=== PATIENT | male | born 1970 | race Caucasian/White ===

== ENCOUNTER 2018-06-12 11:01 | Emergency (ER) | payer MEDICAID, SELFPAY ==
[2018-06-12 11:02] VITALS: BP 136/101; PULSE 86; RESP 18; TEMP 36.6; O2SAT 98; BMI 41.3
[2018-06-12] MEDS: Acetaminophen 500 MG Tablet 1000 MG PO (12:16)
[2018-06-12 12:47] VITALS: BP 134/86; PULSE 70; RESP 28; O2SAT 100
--- NOTE | 2018-06-12 12:48 | ED.DCSUM_ITS ---
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 He states there was not a significant amount of bleeding. He drove to the fire department where it was dressed and he continued here to the emergency department. He states his last tetanus was less than 5 years ago. Physical Examination: Afebrile vital signs are stable There is a 7 cm linear laceration to the medial mid aspect of the eft upper arm into the fatty tissue. There is no muscular involvement. There is no obvious brachial artery or vein laceration. Distally he has a negative Davidson's test and brisk capillary refill of all of his digits. Neurologically is intact with no deficits. Emergency Department Course and Treatment: Wound was looking ascites 1% lidocaine washed with Shur-Clens and explored. It was closed using a total of 8 simple interrupted 3-0 Ethilon sutures. Wound was dressed and wound care discussed with patient. Stitches will need to be removed in 10-14 days. Impression: 1. 7 cm left arm laceration with Repair This note was generated with [employer] dictation software. It may contain incorrect words, spelling, and punctuation that were not noted in review of the chart prior to signing ED Disposition - Plan for ED Patient: Disposition: Home or Assisted Living Chief Complaint: Laceration Instructions: ED Laceration Ext Sutr Stap Tape Referrals: Taniya Narayan MD [Primary Care Provider] - 10-14 Days suture removal
== END 2018-06-12 12:57 | disposition home or self-care (01) ==
PROVIDERS: Emergency Provider Emergency Medicine; Family Provider Internal Medicine; PCP Internal Medicine
DX: S41.112A Laceration without foreign body of left upper arm, initial encounter (principal); W26.8XXA Contact with other sharp object(s), not elsewhere classified, initial encounter; Y93.9 Activity, unspecified; Y92.9 Unspecified place or not applicable; Y99.9 Unspecified external cause status; K21.9 Gastro-esophageal reflux disease without esophagitis; Z79.899 Other long term (current) drug therapy
CPT/HCPCS: 12002; 99285

== ENCOUNTER 2018-11-25 09:46 | Emergency (ER) | payer MEDICAID, SELFPAY ==
[2018-11-25 09:47] VITALS: BP 156/93; PULSE 89; RESP 19; TEMP 36.4; O2SAT 99; BMI 46.8
--- NOTE | 2018-11-25 10:00 | ED.VISSUMM ---
- ER Visit Summary Date of Service: 11/25/18 Chief Complaint: Right shoulder and chest pain History of Present Illness: The patient is a 48 M presents with pain in his right shoulder, chest, and neck. Patient states this began approximately 4 days ago. Patient states the pain started in his right scapula and is now in his right chest and shoulder. Patient states the pain is worse with certain movements of his shoulder. Patient describes the pain as aching and burning. Patient denies any trauma or injury. Patient denies any cough. Patient does admit to some tightness in his chest and shortness of breath. Patient denies any nausea or vomiting. Patient denies any diaphoresis. Patient denies any fevers or chills. Physical Examination: Vital signs are stable. Patient is afebrile. Patient is in no acute distress. Oral mucosa is pink and moist. Neck is supple. Trachea is midline. There is no JVD noted. Heart was regular rate and rhythm. Lungs are diminished bilaterally. Abdomen is soft. Bowel sounds are normal. There is no tenderness. There is no guarding noted. Skin is warm dry. Cranial nerves II through XII are intact. There are no focal motor or sensory deficits noted. The remaining physical exam is within normal limits. Test Results: EKG showed a normal sinus rhythm with a rate of 88. There are no acute ST or T wave changes. CBC and basic metabolic profile were normal. Troponin was normal. PA and lateral chest x-ray was obtained. There is borderline cardiomegaly but no acute infiltrate. Emergency Department Course and Treatment: Patient was advised of his test results. Patient was advised that this may be more musculoskeletal. Patient understands and is agreeable with this. Patient was given a prescription for meloxicam. Patient was instructed to continue using ice and heat as needed. Patient was instructed to follow-up with his primary care physician in 5-7 days. Patient understood and was agreeable with the plan. All questions were answered. Disposition: Discharge home Impression: Right shoulder pain Right chest pain This note was generated with [employer] dictation software. It may contain incorrect words, spelling, and punctuation that were not noted in review of the chart prior to signing ED Disposition - Plan for ED Patient: Disposition: Home or Assisted Living Diagnosis: Right shoulder pain, Right-sided chest pain Instructions: ED Shoulder Pain [facility] Prescriptions: Meloxicam 15 mg PO DAILY #20 tab Referrals: Taniya Narayan MD [Primary Care Provider] - 1-2 Weeks
--- NOTE | 2018-11-25 10:03 | EKG12_ITS ---
Test Reason : RIGHT CP Blood Pressure : / mmHG Vent. Rate : 088 BPM Atrial Rate : 088 BPM P-R Int : 138 ms QRS Dur : 084 ms QT Int : 364 ms P-R-T Axes : 043 058 020 degrees QTc Int : 440 ms Normal sinus rhythm Normal ECG Confirmed by RODDY CASANOVA, STEF ([id number]), video news editor BRADLY PAIGE ([id number]) on 11/27/2018 1:34:58 PM Referred By: LISSY/DANIEL Confirmed By:STEF PEREYRA MD
--- NOTE | 2018-11-25 10:03 | RAD_ITS ---
STUDY: X-RAY CHEST REASON FOR EXAM: Male, 48 years old. Chest pain and neck pain. TECHNIQUE: PA and lateral views of the chest. COMPARISON: Comparison is made with prior study dated July 05, 2016. FINDINGS: EKG electrodes are seen. Elevation of the right hemidiaphragm. Scattered calcified granulomas. No acute infiltrate is seen. There is no demonstrated pleural abnormality. There is borderline cardiomegaly. Normal mediastinum and sidra. Normal visualized pulmonary arteries. Normal visualized aortic arch and descending thoracic aorta. Normal visualized thoracic spine. Normal visualized ribs, clavicles, and shoulders. There is no demonstrated abnormality of the visualized soft tissue structures of the upper abdomen. RAD/Chest PA and Lateral IMPRESSION: Borderline cardiomegaly. Electronically Signed: Ari Carrillo, at 11:24 EDT , Service support ,
[2018-11-25 10:20] VITALS: PULSE 82; RESP 17; O2SAT 96
[2018-11-25] MEDS: Ipratropium/Albuterol Sulfate 3 ML AMPUL.NEB INHALATION (10:20)
[2018-11-25 10:28] LABS: Absolute Lymphocyte Count 1.81 X10^3/ul (0.83-4.51); Absolute Neutrophil Count 4.6 X10^3/uL (2.0-7.7); Basophil# 0.04 X10^3/uL; Basophil% 0.6 % (0-1); Eosinophil# 0.13 X10^3/uL; Eosinophils% 1.8 % (0-5); Hematocrit 44.4 % (40-54); Hemoglobin 14.9 g/dl (13.0-16.5); Lymphocyte # 1.81 X10^3/ul (4.0); Lymphocyte % 25.7 % (19-41); Mean Corp Hgb Conc 33.6 g/gl (32-36); Mean Corpuscular Hgb 28.2 pg (27.0-32.0); Mean Corpuscular Volume 84.1 fL (80-94); Mean Platelet Vol. 10.9 fl (6.2-12.0); Monocyte# 0.42 X10^3/uL; Neutrophil # 4.63 X10^3/uL (2.7-7.7); Neutrophil % 65.6 % (47-70); Platelet Count 261 K/mm3 (150-450); RBC Distribution Width SD 39.8 fl (35.1-43.9); Red Blood Count 5.28 M/mm3 (4.6-6.2); White Blood Count 7.1 K/mm3 (4.4-11.0)
[2018-11-25 10:29] LABS: POSITIVE COUNT NO; POSITIVE DIFFERENTIAL NO; POSITIVE MORPHOLOGY NO
[2018-11-25 10:43] LABS: Anion Gap 7 (5-15); BUN 14 mg/dL (7-18); BUN/Creat Ratio 14.2 RATIO (10-20); Calcium,Total 8.7 mg/dL (8.5-10.1); Chloride 104 mmol/L (98-107); Creatinine, Serum 0.99 mg/dL (0.70-1.30); EST Glomerular Filtration Rate 86 mL/min (>60); Est Glom Filt Rate - Afr Amer 105 mL/min (>60); Estimated Creatinine Clearance 77.24 ml/min; Glucose 142 mg/dL (74-106); Potassium 3.5 mmol/L (3.5-5.1); Sodium Level 137 mmol/L (136-145)
[2018-11-25 12:05] VITALS: BP 130/90; PULSE 79; RESP 18; O2SAT 94
== END 2018-11-25 12:15 | disposition home or self-care (01) ==
PROVIDERS: Emergency Provider Emergency Medicine; Family Provider Internal Medicine; PCP Internal Medicine
DX: M25.511 Pain in right shoulder (principal); R07.9 Chest pain, unspecified; M54.2 Cervicalgia; R51 Headache; R06.02 Shortness of breath; K21.9 Gastro-esophageal reflux disease without esophagitis; E66.9 Obesity, unspecified; Z79.899 Other long term (current) drug therapy; Z87.891 Personal history of nicotine dependence
CPT/HCPCS: 71046; 80048; 84484; 85025; 93005; 94640; 99284

== ENCOUNTER 2019-06-04 08:39 | Emergency (ER) | payer MEDICAID, SELFPAY ==
[2019-06-04] VITALS (7 sets, daily range): BP systolic 120–156; BP diastolic 70–104; PULSE 63–87; RESP 14–17; TEMP 37.1; O2SAT 96–98; BMI 41.7
--- NOTE | 2019-06-04 08:56 | EKG12_ITS ---
Test Reason : CP Blood Pressure : / mmHG Vent. Rate : 077 BPM Atrial Rate : 077 BPM P-R Int : 138 ms QRS Dur : 082 ms QT Int : 372 ms P-R-T Axes : 041 049 032 degrees QTc Int : 420 ms Normal sinus rhythm Normal ECG Confirmed by HIRA CASANOVA, ROHAN ([id number]), video editor CEZAR RODRIGUEZ ([id number]) on 06/10/2019 10:30:53 AM Referred By: GE/LISSY Confirmed By:PUJA INIGUEZ MD
--- NOTE | 2019-06-04 08:57 | ED.DCSUM_ITS ---
- ER Visit Summary Date of Service: 06/04/19 Chief Complaint: Chest pain History of Present Illness: The patient is a 48 M who presents with chest pain that has been getting worse over the past 6 days. Patient states the pain is been constant for the past 3 days. Patient describes the pain as a heaviness and pressure. Patient states the pain is over the left chest area. Patient states the pain radiates into his left neck and left arm. Patient states nothing makes the pain better or worse. Patient states he did have an episode of nausea vomiting 3 days ago. Patient states he has had some intermittent diaphoresis. Patient also admits to some slight shortness of breath. Patient states that he did have an episode of feeling off balance and lightheaded. Patient is a former smoker. Patient has a family history of coronary artery disease at a young age. Patient also has a history of anxiety. Physical Examination: Vital signs are stable except for slightly elevated blood pressure of 156/104. Patient is afebrile. Patient is in no acute distress. Oral mucosa is pink and moist. Neck is supple. Trachea is midline. There is no JVD noted. Heart was regular rate and rhythm. Lungs are clear and equal bilaterally. Abdomen is soft. Bowel sounds are normal. There is no tenderness. There is no guarding noted. Skin is warm dry. Cranial nerves II through XII are intact. There are no focal motor or sensory deficits noted. Test Results: EKG showed a normal sinus rhythm with a rate of 77. There are no acute ST or T wave changes noted. Portable chest x-ray was obtained. There is borderline cardiomegaly. There is no acute cardiopulmonary process. CBC, basic metabolic profile, troponin were obtained and were normal. Emergency Department Course and Treatment: Patient was given aspirin and nitroglycerin here. Patient states his pain improved. Patient has a HEART score of 3. Patient was advised that this is low risk for acute cardiac event. Patient was instructed to follow-up with his primary care physician for further evaluation. Patient understood and was agreeable with the plan. All questions were answered. Disposition: Discharge home Impression: Chest pain This note was generated with [employer] dictation software. It may contain incorrect words, spelling, and punctuation that were not noted in review of the chart prior to signing ED Disposition - Plan for ED Patient: Disposition: Home or Assisted Living Diagnosis: Chest pain Instructions: CHEST PAIN, Uncertain Cause Referrals: Taniya Narayan MD [Primary Care Provider] - 5-7 Days
[2019-06-04 09:04] LABS: Absolute Lymphocyte Count 2.27 X10^3/uL (0.83-4.51); Basophil# 0.06 X10^3/uL; Basophil% 0.7 % (0-1); Eosinophil# 0.16 X10^3/uL; Hemoglobin 14.9 g/dL (13.0-16.5); Lymphocyte # 2.27 X10^3/ul (4.0); Lymphocyte % 28.3 % (19-41); Mean Corp Hgb Conc 32.4 g/dL (32-36); Mean Corpuscular Hgb 27.5 pg (27.0-32.0); Mean Corpuscular Volume 84.9 fL (80-94); Mean Platelet Vol. 10.9 fl (6.2-12.0); Monocyte# 0.49 X10^3/uL; Monocyte% 6.1 % (0-10); NRBC Flagged by Analyzer 0 % (0-5); Neutrophil # 4.99 X10^3/uL (2.7-7.7); Neutrophil % 62.4 % (47-70); Platelet Count 280 K/mm3 (150-450); RBC Distribution Width CV 12.9 % (11.6-14.6); RBC Distribution Width SD 39.7 fl (35.1-43.9); Red Blood Count 5.42 M/mm3 (4.6-6.2)
--- NOTE | 2019-06-04 09:08 | RAD_ITS ---
STUDY: X-RAY CHEST REASON FOR EXAM: Male, 48 years old. Chest pain. TECHNIQUE: Single AP portable view of the chest. COMPARISON: Comparison is made with prior study dated November 25, 2018. FINDINGS: EKG electrodes are seen. The lungs are clear and expanded. There is no demonstrated pleural abnormality. There is borderline cardiomegaly. Normal mediastinum and sidra. Normal visualized pulmonary arteries. Normal visualized aortic arch and descending thoracic aorta. Normal visualized thoracic spine. Normal visualized ribs, clavicles, and shoulders. There is no demonstrated abnormality of the visualized soft tissue structures of the upper abdomen. RAD/Chest 1 View (Portable) IMPRESSION: Borderline cardiomegaly. Electronically Signed: Ari Carrillo, at 9:39 EDT , Service support ,
[2019-06-04] MEDS: Aspirin 81 MG TAB.CHEW 324 MG PO (09:10)
[2019-06-04 09:14] LABS: Anion Gap 7 (5-15); BUN 20 mg/dL (7-18); BUN/Creat Ratio 20.7 RATIO (10-20); Calcium,Total 8.9 mg/dL (8.5-10.1); Chloride 107 mmol/L (98-107); Creatinine, Serum 0.97 mg/dL (0.70-1.30); EST Glomerular Filtration Rate 88 mL/min (>60); Est Glom Filt Rate - Afr Amer 107 mL/min (>60); Estimated Creatinine Clearance 84.96 ml/min; Glucose 102 mg/dL (74-106); Sodium Level 142 mmol/L (136-145)
[2019-06-04] MEDS: Nitroglycerin SL (ED/IMG/CATH) 0.4 MG TABLET SUBLINGUAL ×3 (09:14→09:38)
== END 2019-06-04 10:52 | disposition home or self-care (01) ==
PROVIDERS: Emergency Provider Emergency Medicine; Family Provider Internal Medicine; PCP Internal Medicine
DX: R07.9 Chest pain, unspecified (principal); K21.9 Gastro-esophageal reflux disease without esophagitis; F41.9 Anxiety disorder, unspecified; R03.0 Elevated blood-pressure reading, without diagnosis of hypertension; E66.9 Obesity, unspecified; Z79.899 Other long term (current) drug therapy; Z87.891 Personal history of nicotine dependence
CPT/HCPCS: 71045; 80048; 84484; 85025; 93005; 99285; A4216

== ENCOUNTER 2020-06-14 08:43 | Emergency (ER) | payer MEDICAID, SELFPAY ==
[2019-06-04 08:42] VITALS: BMI 41.7
[2020-06-14 08:43] VITALS: BP 164/97; PULSE 81; RESP 16; TEMP 38.5; O2SAT 98; BMI 43.2
[2020-06-14 09:07] VITALS: BP 122/78; PULSE 61; RESP 18; TEMP 36.7; O2SAT 98
--- NOTE | 2020-06-14 09:38 | EKG12_ITS ---
Test Reason : CHEST HEAVINESS Blood Pressure : / mmHG Vent. Rate : 061 BPM Atrial Rate : 061 BPM P-R Int : 140 ms QRS Dur : 078 ms QT Int : 402 ms P-R-T Axes : 057 067 036 degrees QTc Int : 404 ms Normal sinus rhythm Normal ECG Confirmed by HIRA CASANOVA, ROHAN ([id number]), industrial editor BRADLY PAIGE ([id number]) on 06/21/2020 8:29:48 A M Referred By: CL Confirmed By:PUJA INIGUEZ MD
--- NOTE | 2020-06-14 09:38 | ED.VIS.GEN ---
History of Present Illness Chief Complaint: Fever Informant: Patient Narrative: 49-year-old male with history of anxiety presenting with chest tightness since yesterday. He developed a fever at 1 AM and took Tylenol. His fever was 101.4. It has not returned. He does not have a cough, myalgias. He states he had nausea and vomiting as well as diarrhea. Patient denies any medical problems except for anxiety. He does not feel anxious currently. He states he was at a birthday libertarian yesterday but nobody was sick. His is with him and she does not have any symptoms. They have a 17-year-old son in high school who also is asymptomatic. Patient states his only symptom that may be consistent with Covid?19 is he could not taste his coffee this morning. He has a little bit of nasal congestion. - Past Medical History (1) GERD (gastroesophageal reflux disease) Status: Chronic (2) Obesity Status: Chronic Past Medical History - Allergies and Home Meds Allergies/Adverse Reactions: Allergies acetaminophen [From Vicodin] Allergy (Verified 06/14/20 09:12) Itching hydrocodone bitartrate [From Vicodin] Allergy (Verified 06/14/20 09:12) Itching Primary Care Physician: Taniya Narayan MD [Primary Care Provider] - Prior records reviewed: No Past Medical History: - - GERD, anxiety Surgical History: appendectomy Lives: Spouse/ Significant Other Smoking Status: Former smoker Alcohol: None Drugs: None - Family History Maternal Family History: Reports: Heart Disease Paternal Family History: Reports: Heart Disease, - - His father had first heart attack in his 40s. Review of Systems General: Reports: Fever. Denies: Chills, Malaise Eyes: Denies: Visual changes - bilaterally, Diplopia ENT: Reports: Rhinorrhea, - - Loss of taste. Denies: Sore throat Respiratory: Denies: Dyspnea, Cough, Dyspnea on exertion Gastrointestinal: Denies: Abdominal pain, Nausea, Vomiting, Diarrhea, Melena, Hematochezia Genitourinary: Denies: Dysuria, Hematuria, Frequency Musculoskeletal: Denies: Back pain, Extremity Pain Skin: Denies: Rash, Wounds Neurological: Denies: Headache, Weakness, Numbness Physical Exam Vital Signs/Narrative: Vital Signs Temp Pulse Resp BP Pulse Ox 06/14/20 09:07 98.0 F 61 18 122/78 H 98 06/14/20 08:43 101.3 F H 81 16 164/97 H 98 General: Well nourished, Obese, No Acute Distress Head: Normocephalic, Atraumatic Eyes: Perrl ENT: Moist mucous membranes, Nasal congestion Cardiovascular: Regular rate, Regular rhythm Respiratory: No distress, CTA bilaterally Abdomen: Soft, Nontender Back: Nontender, Normal Inspection Extremities: Nontender, No edema Skin: Normal color, No rash Neurological: Alert, Oriented x3 Psychological: Normal affect, Normal Mood Diagnostic/Tx/Re-eval Clinical Impression(s) from Imaging Studies Chest X-Ray 06/14/20 09:56 IMPRESSION: Normal x-ray examination of the chest. Electronically Signed: Poncho Genna, at 10:55 EDT Tel , Service support , Laboratory Data 06/14/20 06/14/20 06/14/20 09:15 09:15 09:15 WBC 7.6 RBC 5.28 Hgb 14.3 Hct 44.8 MCV 84.8 MCH 27.1 MCHC 31.9 L RDW Std Deviation 38.8 RDW Coeff of Mariela 12.7 Plt Count 266 MPV 11.2 Immature Gran % (Auto) 0.800 Neut % (Auto) 62.2 Lymph % (Auto) 26.8 Atlantic % (Auto) 7.4 Eos % (Auto) 2.1 Baso % (Auto) 0.7 Absolute Neuts (auto) 4.7 Absolute Lymphs (auto) 2.04 Nucleated RBC % 0 D-Dimer Quant (PE/DVT) <= 0.27 Sodium 139 Potassium 4.0 Chloride 105 Carbon Dioxide 28.0 Anion Gap 6 BUN 15 Creatinine 0.95 Estim Creat Clear Calc 82.72 Est GFR (MDRD) Af Amer 108 Est GFR (MDRD) Non-Af 89 BUN/Creatinine Ratio 15.8 Glucose 115 H Calcium 9.3 Troponin I < 0.015 - Rhythm Strip Rhythm Strip: Sinus Rhythm Rate: 61 - EKG Initial EKG Interpretation: Sinus Rhythm, No Acute Injury Pattern - Medical Decision Making Patient presents for evaluation of some slight chest tightness which he developed in his sternum. This has been going on constantly since yesterday but had increased. He developed a fever at 1 AM and became concerned. He does have school-aged children which are both going to school. Nobody else in his house is sick. Chest x-ray is negative. EKG is sinus rhythm without signs of ischemia. D-dimer is negative. Lab work is otherwise unremarkable. Given the patient has had chest pain for nearly 24 hours I do not believe needs a delta EKG or delta troponin. Patient will be tested for Covid?19 he will quarantine at home. He was given strict return precautions and will return for any new or worsening signs or symptoms. Impression: 1. Chest pain 2. Fever ED Disposition - Plan for ED Patient: Disposition: Home or Assisted Living Instructions: ED Upper Resp Infec No Abx Tx, ED Chest Pain Noncardiac Ch Prescriptions: Ondansetron [Zofran Odt] 4 mg PO Q8H PRN PRN #30 tab PRN Reason: Nausea Transmission Status: Received by JOHANN ADAM-1953 [facility] Referrals: Taniya Narayan MD [Primary Care Provider] -
[2020-06-14 09:46] LABS: Absolute Lymphocyte Count 2.04 X10^3/uL (0.83-4.51); Absolute Neutrophil Count 4.7 X10^3/uL (2.0-7.7); Basophil# 0.05 X10^3/uL; Basophil% 0.7 % (0-1); Eosinophil# 0.16 X10^3/uL; Eosinophils% 2.1 % (0-5); Hematocrit 44.8 % (40-54); Hemoglobin 14.3 g/dL (13.0-16.5); Lymphocyte # 2.04 X10^3/ul (4.0); Lymphocyte % 26.8 % (19-41); Mean Corp Hgb Conc 31.9 g/dL (32-36); Mean Corpuscular Hgb 27.1 pg (27.0-32.0); Mean Corpuscular Volume 84.8 fL (80-94); Mean Platelet Vol. 11.2 fl (6.2-12.0); Monocyte# 0.56 X10^3/uL; Monocyte% 7.4 % (0-10); NRBC Flagged by Analyzer 0 % (0-5); Neutrophil # 4.73 X10^3/uL (2.7-7.7); Neutrophil % 62.2 % (47-70); Platelet Count 266 K/mm3 (150-450); RBC Distribution Width CV 12.7 % (11.6-14.6); RBC Distribution Width SD 38.8 fl (35.1-43.9); Red Blood Count 5.28 M/mm3 (4.6-6.2); White Blood Count 7.6 K/mm3 (4.4-11.0)
[2020-06-14] MEDS: Ondansetron 4 MG/2 ML Vial IV (09:50)
[2020-06-14 09:51] VITALS: O2SAT 98
[2020-06-14 09:52] VITALS: BP 143/88; PULSE 60; RESP 18; O2SAT 98
[2020-06-14 09:55] LABS: D-Dimer Quantitative (DVT/PE) <= 0.27 FEU/ug/m (0.27-0.49)
--- NOTE | 2020-06-14 09:56 | RAD_ITS ---
STUDY: X-RAY CHEST REASON FOR EXAM: Male, 49 years old. Fatigue and fever TECHNIQUE: Single AP portable view of the chest. COMPARISON: 06/04/2019 FINDINGS: The lungs are clear and expanded. There is no demonstrated pleural abnormality. Normal size heart. Normal mediastinum and sidra. Normal visualized pulmonary arteries. Normal visualized aortic arch and descending thoracic aorta. Normal visualized thoracic spine. Normal visualized ribs, clavicles, and shoulders. There is no demonstrated abnormality of the visualized soft tissue structures of the upper abdomen. RAD/Chest 1 View (Portable) IMPRESSION: Normal x-ray examination of the chest. Electronically Signed: Poncho Vail, at 10:55 EDT Tel , Service support ,
[2020-06-14 10:04] LABS: Anion Gap 6 (5-15); BUN 15 mg/dL (7-18); BUN/Creat Ratio 15.8 RATIO (10-20); Calcium,Total 9.3 mg/dL (8.5-10.1); Chloride 105 mmol/L (98-107); Creatinine, Serum 0.95 mg/dL (0.70-1.30); EST Glomerular Filtration Rate 89 mL/min (>60); Est Glom Filt Rate - Afr Amer 108 mL/min (>60); Estimated Creatinine Clearance 82.72 ml/min; Glucose 115 mg/dL (74-106); Sodium Level 139 mmol/L (136-145)
[2020-06-14 11:39] VITALS: BP 131/82; PULSE 63; RESP 21; TEMP 37.2; O2SAT 96
[2020-06-14 11:41] VITALS: BP 131/82; PULSE 63; RESP 21; O2SAT 96
== END 2020-06-14 11:42 | disposition home or self-care (01) ==
LOC: ED 09:45
PROVIDERS: Emergency Provider Student in an Organized Health Care Education/Training Program; PCP Internal Medicine
DX: R50.9 Fever, unspecified (principal); R07.89 Other chest pain; K21.9 Gastro-esophageal reflux disease without esophagitis; E66.9 Obesity, unspecified; Z68.41 Body mass index [BMI] 40.0-44.9, adult; Z82.49 Family history of ischemic heart disease and other diseases of the circulatory system
CPT/HCPCS: 71045; 80048; 84484; 85025; 85379; 87635; 93005; 96374; 99281; 99285; A4216; J2405; U0003

== ENCOUNTER 2022-04-04 12:00 | Emergency (ER) | payer MEDICAID, SELFPAY ==
[2022-04-04 12:01] VITALS: BP 154/90; PULSE 108; RESP 18; TEMP 36.2; O2SAT 97; BMI 45.6
[2022-04-04] MEDS: Tetracaine 0.5% Ophthalmic Bottle 1 DRP EACH EYE (12:12)
[2022-04-04] MEDS: Fluorescein 1 MG STRIP 1 STRIP LEFT EYE (12:13)
--- NOTE | 2022-04-04 12:14 | ED.RN ---
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
[2022-04-04 14:46] VITALS: BP 140/84; PULSE 100; RESP 19; O2SAT 99
--- NOTE | 2022-04-04 15:25 | ED.RN ---
PT EDUCATED TO DRIVE TO [facility] ON DISCHARGE FROM ED. VERBALIZES UNDERSTANDING, AND SON TO TRANSPORT PT TO THE [facility].
--- NOTE | 2022-04-04 15:28 | ED.RN ---
THIS RN CALLED REPORT TO [facility], INFORMED OF PT CARE IN ED.
== END 2022-04-04 15:20 | disposition home or self-care (01) ==
PROVIDERS: Emergency Provider Emergency Medicine; PCP Internal Medicine; Visit Provider Emergency Medicine
DX: T26.62XA Corrosion of cornea and conjunctival sac, left eye, initial encounter (principal); Z68.42 Body mass index [BMI] 45.0-49.9, adult; T26.91XA Corrosion of right eye and adnexa, part unspecified, initial encounter; X58.XXXA Exposure to other specified factors, initial encounter; Y93.H9 Activity, other involving exterior property and land maintenance, building and construction; E66.9 Obesity, unspecified; Z87.891 Personal history of nicotine dependence
CPT/HCPCS: 99284

== ENCOUNTER 2025-04-19 12:35 | Emergency (ER) | payer OTHER, SELFPAY ==
[2025-04-19] VITALS (15 sets, daily range): BP systolic 120–178; BP diastolic 77–112; PULSE 71–98; RESP 13–28; TEMP 36.3–36.4; O2SAT 92–100; BMI 46.5
--- NOTE | 2025-04-19 12:54 | EKG12_ITS ---
Test Reason : CP Blood Pressure : */* mmHG Vent. Rate : 93 BPM Atrial Rate : 93 BPM P-R Int : 144 ms QRS Dur : 82 ms QT Int : 348 ms P-R-T Axes : 47 51 -1 degrees QTcB Int : 432 ms Normal sinus rhythm Normal ECG Confirmed by LATHA CASANOVA, NATE ([id number]), dictionary editor BRADLY PAIGE ([id number]) on 04/21/2025 6:11:07 AM Referred By: JESENIA Confirmed By: NATE AZUL MD
--- NOTE | 2025-04-19 12:54 | ED.VIS.CHEST ---
HPI History of Present Illness Chief Complaint: Chest Pain Informant: patient Onset/Context/Timing Onset: Days (5) Activity at onset: gradual Timing: Continuous Quality: Positive for Heaviness and Pressure Location: Left Chest Worsened By: Nothing Relieved By: - (Relaxing) Associated Symptoms: Negative for Nausea, Vomiting, Diaphoresis, Dyspnea, Cough, Fever, Lightheadedness, Acid Reflux or Palpitations Narrative Narrative: Patient presents with chest pain that began approximately 5 days ago. Patient states it is over the left side of his chest. Patient describes it as having some pressure. Patient states nothing makes it worse. Patient states it is better when he is able to relax. Patient denies any nausea or vomiting. Patient denies any shortness of breath or cough. Patient denies any diaphoresis or lightheadedness. Patient denies any palpitations. Patient recently started Ozempic approximately 4 weeks ago. CVD Risk Factors: Positive for Family History 1' </=55 (Father at age 60 from heart attack.); Negative for Hypertension, Diabetes, Hypercholesterolemia or Smoking PE Risk Factors: Negative for Recent Travel/Surgery, Recent Immobilization, Prior DVT or PE, Cancer or OCP + Smoking + >/=35 [facility] Medical History (Updated 04/19/25 @ 15:[address] Charan Crowell DO) Obesity GERD (gastroesophageal reflux disease) Home Medications ?Medication ?Instructions ?Recorded ?Last Taken ?Type semaglutide 0.25 mg or 0.5 mg (2 0.25 mg subcut QWEEK 04/19/25 Unknown History mg/3 mL) subcutaneous pen injector (Ozempic) Allergy/AdvReac Type Severity Reaction Status Date / Time acetaminophen (From Vicodin) Allergy Itching Verified 04/19/25 12:39 hydrocodone bitartrate (From Allergy Itching Verified 04/19/25 12:39 Vicodin) Surgical History (Updated 04/19/25 @ 13:[address] Charan Crowell DO) Hx of appendectomy Social History Smoking Status: Former smoker ROS ROS ED Constitutional Constitutional ED: Denies chills or fever(s) Eyes Eyes: Denies blurry vision or change in vision ENT ENT ED: Denies rhinorrhea or sore throat Cardiovascular Cardiovascular: Reports as per HPI and chest pain; Denies palpitations Respiratory/Chest Respiratory/Chest: Denies cough or dyspnea Gastrointestinal Gastrointestinal: Denies nausea or vomiting Genitourinary Genitourinary ED: Denies dysuria or hematuria Musculoskeletal Musculoskeletal: Reports back pain; Denies neck pain Integumentary Denies abscess or rash Neurologic Neurologic: Denies headache(s) or weakness Allergic/Immunologic Allergic/Immunologic ED: Denies mouth swelling or urticaria EXAM Physical Exam Const Vital Signs: 04/19/25 12:36 04/19/25 12:48 04/19/25 12:57 Temperature 97.4 F L Temperature Source Temporal Pulse Rate 95 98 Respiratory Rate 19 H 19 H Blood Pressure 178/100 H 147/104 H Blood Pressure Mean 126 118 Pulse Ox 99 98 Oxygen Delivery Method Room Air Room Air 04/19/25 13:02 04/19/25 13:36 04/19/25 13:45 Temperature Temperature Source Pulse Rate 89 80 74 Respiratory Rate 14 Blood Pressure 135/87 H 129/87 H 120/77 Blood Pressure Mean 101 91 Pulse Ox 94 92 Oxygen Delivery Method Room Air Room Air 04/19/25 14:02 04/19/25 14:15 04/19/25 14:30 Temperature Temperature Source Pulse Rate 80 72 83 Respiratory Rate 13 21 H 21 H Blood Pressure Blood Pressure Mean Pulse Ox 100 94 95 Oxygen Delivery Method 04/19/25 14:45 04/19/25 15:00 04/19/25 15:05 Temperature Temperature Source Pulse Rate 71 75 75 Respiratory Rate 21 H 24 H 24 H Blood Pressure 126/85 H Blood Pressure Mean 98 Pulse Ox 97 96 96 Oxygen Delivery Method Room Air Positive well nourished and well developed Constitutional Narrative: BMI is 46.5. General Appearance ED: well developed and NAD HEENT Reports moist mucous membranes Neck supple and no JVD Resp normal respiratory effort and clear to auscultation bilaterally Cardio regular rate and regular rhythm GI soft to palpation, non-tender and non-distended Extremity normal to inspection General Extremety ED: Negative for edema or tenderness General Extremity: Negative for edema Neuro oriented x3, CN's II-XII intact bilaterally and no sensory deficits noted Sensorium / Orientation: awake and alert Motor Exam: strength 5/5 throughout Psych mental status grossly normal Heart Score History: Slightly/Non-Suspicious ECG: Normal Age: >45 - <65 years Risk Factors: 1 or 2 Risk Factors Troponin: </= Normal Limit Score: 2 MDM MDM MDM Narrative Medical decision making narrative: Differential diagnosis includes cardiac dysrhythmia, cardiac ischemia, pneumonia, bronchitis, electrolyte abnormality, musculoskeletal pain, and anxiety. EKG will be obtained to assess for cardiac dysrhythmia and cardiac ischemia. Chest x-ray will be obtained to assess for pneumonia or bronchitis. CBC will be obtained to assess for leukocytosis and anemia. Basic metabolic profile will be obtained to assess for electrolyte abnormality renal function. High-sensitivity troponin will be obtained to assess for cardiac ischemia. 2-hour repeat high-sensitivity troponin will be obtained to assess for ongoing cardiac ischemia. History & Record Review Additional record(s) reviewed:: Prior outpatient record, Prior ED visit and Prior labs Lab Data Attestation: I reviewed the patient's lab results. Lab results narrative: CBC was reviewed and was within normal limits. Basic metabolic profile was reviewed and was within normal limits. Initial high-sensitivity troponin was reviewed and was normal at 10. 2-hour repeat high-sensitivity troponin was reviewed and was normal at 9. Labs: Laboratory Results - last 24 hr 04/19/25 04/19/25 12:51 14:46 WBC 8.7 RBC 5.46 Hgb 15.3 Hct 46.1 MCV 84.4 MCH 28.0 MCHC 33.2 RDW Std Deviation 38.9 RDW Coeff of Mariela 12.8 Plt Count 314 MPV 10.7 Immature Gran % (Auto) 0.300 Neut % (Auto) 61.8 Lymph % (Auto) 29.4 [place] % (Auto) 5.6 Eos % (Auto) 2.2 Baso % (Auto) 0.7 Absolute Neuts (auto) 5.4 Absolute Lymphs (auto) 2.56 Nucleated RBC % 0 Sodium 140 Potassium 4.0 Chloride 103 Carbon Dioxide 25.8 Anion Gap 12 BUN 12 Creatinine 0.91 Estim Creat Clear Calc 116.29 Est GFR (MDRD) Non-Af 100 BUN/Creatinine Ratio 13.6 Glucose 99 Calcium 9.6 Troponin T High Sens 10 Troponin T Hi Sens 2 Hr 9 Radiography Chest X-Ray - ED: 1 View, Read by ED Physician, Read by Radiologist and No Acute Disease Diagnostic Testing: Clinical Impression(s) from Imaging Studies Chest X-Ray 04/19/25 13:05 IMPRESSION: No acute cardiopulmonary abnormalities. Reading Location: [facility] EKG Initial EKG: Attestation: I personally reviewed and interpreted this EKG as follows: Interpretation: Sinus Rhythm (93) and No Acute Injury Pattern Comments: EKG was obtained. On my independent interpretation, it showed a normal sinus rhythm with a rate of 93. [place] interval, QRS interval, and QTc intervals were all normal. [place] was normal. There are no acute ST or T wave changes. Prior EKG tracings: available for review Prior: Unchanged (06/14/2020) Treatment and Re-Evaluation :: Patient was given aspirin. Patient was feeling better on reevaluation. Patient was advised of his findings. Patient has a HEART score of 2. Patient was advised that this is low risk for acute cardiac event. Patient was instructed to follow-up with his primary care physician as scheduled. Patient was instructed to return if worse in any way. Patient understood and was agreeable with the plan. All questions were answered. Discharge Plan Triage Chief Complaint: Chest Pain ED Provider: Charan Crowell Dx/Rx/DC Orders Clinical Impression: Atypical chest pain, Elevated blood pressure reading Instructions: ED Chest Pain, Uncertain Cause Prescriptions: No Action Ozempic 0.25 mg or 0.5 mg (2 mg/3 mL) pen injector 0.25 mg subcut QWEEK Primary Care Provider: Taniya Narayan Referrals: Taniya Narayan MD [Primary Care Provider] - Keep [facility] appointment Print Language: Maltese Disposition Disposition: Home, Self Care
[2025-04-19 13:01] LABS: Hematocrit 46.1 % (40-54); Hemoglobin 15.3 g/dL (13.0-16.5); Immature Granulocytes Count 0.030 X10^3/uL (0.0-0.0); Mean Corp Hgb Conc 33.2 g/dL (32-36); Mean Corpuscular Volume 84.4 fL (80-94); Mean Platelet Vol. 10.7 fl (6.2-12.0); NRBC Flagged by Analyzer 0 % (0-5); Platelet Count 314 K/mm3 (150-450); RBC Distribution Width CV 12.8 % (11.6-14.6); RBC Distribution Width SD 38.9 fl (35.1-43.9); Red Blood Count 5.46 M/mm3 (4.6-6.2); White Blood Count 8.7 K/mm3 (4.4-11.0)
[2025-04-19] MEDS: Nitroglycerin SL (ED/IMG/CATH) 0.4 MG TABLET SL (13:02)
--- NOTE | 2025-04-19 13:05 | RAD_ITS ---
PROCEDURE: CHEST 1 VIEW (PORTABLE) 04/19/2025 REASON FOR EXAM: CHEST PAIN TECHNIQUE: Frontal view of the chest. COMPARISON: Chest x-ray 06/14/2020. FINDINGS: Hardware: Monitor electrodes overlie the chest. Heart: No cardiomegaly. Lungs: The lungs are clear. Bones: No acute bony abnormalities. RAD/Chest 1 View (Portable) IMPRESSION: No acute cardiopulmonary abnormalities. Reading Location: [id number]
--- OUTSIDE RECORDS SUMMARY | 2025-04-19 13:22 | XMS RPT_ITS | CCD ---
Author Organization [facility] Care Team Providers Care Hardware Engineering Manager Name Role Phone Helene CASANOVA, Rogers Primary Care Provider BRYAN LINDA Attending Unavailable GANTA, ROGERS Primary Care Unavailable MARISA GATES Referring Unavailable Rogers Pisano MD Primary Care Provider Rogers Pisano MD Primary Care Provider Aundrea Cheng PA-C Unavailable [phone] Older PHOTOGRAPHY INSTRUCTOR.Gabrielle SALAZAR Unavailable [phone] Berta Shea PA-C Unavailable GANTA, ROGERS Primary Care Unavailable GANTA, ROGERS Primary Care Unavailable GANTA, ORGERS Referring Unavailable GANTA, ROGERS Primary Care Unavailable GANTA, ROEGRS Attending Unavailable GANTA, ROGERS Primary Care Unavailable CLUTTER, WILLA Referring Unavailable GANTA, ROGERS Primary Care Unavailable Allergies Allergy Classification Reported Allergen(s) Allergy Type Date of Onset Reaction(s) Facility (20 sources) Propoxyphene N-Acetaminophen; Translations: [PROPOXYPHENE N-ACETAMINOPHEN] Propensity to adverse reactions 7 [facility] (1 source) Acetaminophen Drug Allergy [address] [facility] Work Phone: (13 sources) HYDROcodone; Translations: [HYDROCODONE BITARTRATE] Drug Allergy 5 Itching [facility] Work Phone: Medications Current Medications Medication Drug Class(es) Dates Sig (Normalized) Sig (Original) amoxicillin 875 mg / clavulanate 125 mg oral tablet (1 source) Penicillin-class Antibacterial Start: 09-08-2024 End: 09-13-2024 take 1 tablet by mouth twice daily amoxicillin-clavu lanate potassium (AUGMENTIN) 875-125 mg per tablet Indications: Acute otitis media, left , Acute non-recurrent sinusitis, unspecified location Take 1 tablet by mouth two times a day for 5 days. 10 tablet 09/08/2024 09/13/2024 Active benzonatate 100 mg oral capsule (17 sources) Non-narcotic Antitussive Start: 07-22-2024 End: 07-29-2024 take 1 capsule by mouth three times daily as needed for cough benzonatate (TESSALON PERLE) 100 mg capsule Indications: Acute bronchitis, unspecified organism Take 1 capsule by mouth three times a day as needed for cough for up to 7 days. 21 capsule 07/22/2024 07/29/2024 Active Start: 09-03-2021 End: 07-17-2023 benzonatate (TESSALON PERLE) 100 mg capsule Indications: Viral illness Take 1-2 capsules every 8 hours as needed. 30 capsule 09/03/2021 07/17/2023 Discontinued Comment on above: Take 1-2 capsules ev celeste 8 hours as needed. cholecalciferol 0.025 mg oral tablet (20 sources) Vitamin D Start: 07-30-20 23 End: 07-29-20 24 take 1 tablet by mouth once daily cholecalciferol (VITAMIN D3) 1,000 unit tab tablet Take 1 tablet by mouth once daily. 90 tablet 3 07/30/2023 Active Start: 02-28-2021 End: 08-09-2022 take 1 capsule by mouth two times weekly cholecalciferol, Vitamin D3, (VITAMIN D3) 1,250 mcg (50,000 unit) cap capsule Indications: Vitamin D deficiency Take 1 capsule by mouth two times a week. (ONE CAPSULE) FOR VITAMIN D DEFICIENCY 24 capsule 02/28/2021 08/09/2022 Discontinued Comment on above: Take 1 capsule by mo [facility] two times a week. (ONE CAPSULE) FOR VITAMIN D DEFICIENCY Take 1 tablet by coreen once daily. ciprofloxacin 250 mg oral tablet (1 source) Quinolone Antimicrobial Start : 10-17 End: 10-20 take 1 tablet by mouth twice daily ciprofloxacin HCl (CIPRO) 250 mg tablet Take 1 tablet by mouth twice daily for 3 days. 6 tablet 0 10/17/2022 10/20/2022 Active Comment on above: Take 1 tablet by coreen twice daily for 3 days. clonazePAM 1 mg oral tablet (20 sources) Benzodiazepine Start : 08-22 End: 04-29 take 1 tablet by mouth twice daily clonazePAM (KLONOPIN) 1 mg tablet Indications: Tardive dyskinesia , Neck pain Take 1 tablet by mouth two times a day for 180 days. 180 tablet 1 11/01/2023 Active Comment on above: Take 1 tablet by coreen twice daily for 180 days. Take 1 tablet by coreen two times a day for 180 days. lidocaine 0.05 mg/mg medicated patch (2 sources) Antiarrhythmic, Amide Local Anesthetic Start : 02-20 End: 03-22 apply 1 dose transdermal route every twenty-four hours lidocaine (LIDODERM) 5 % Apply 1 Patch as directed every 24 hours. Remove old patch prior to placing new patch. Location: lower back 30 Patch 0 02/20/2023 03/22/2023 Active Comment on above: Apply 1 Patch as dir ected every 24 hours. Remove old patch prior to placing new patch. Location: lower back methylPREDNISolone (1 source) Corticosteroid Start : 01-05 End: 01-11 methylPREDNISolone (MEDROL, ANDREZ,) 4 mg Dose-Pack Follow dosing instructions, take with food. 21 tablet 0 01/05/2023 01/11/2023 Active Comment on above: Follow dosing instru ctions, take with food. metroNIDAZOLE 500 mg oral tablet (1 source) Nitroimidazole Antimicrobial Start : 10-17 End: 10-22 take 1 tablet by mouth three times daily metroNIDAZOLE (FLAGYL) 500 mg tablet Take 1 tablet by mouth three times daily for 5 days. 15 tablet 0 10/17/2022 10/22/2022 Active Comment on above: Take 1 tablet by coreen three times daily for 5 days. omeprazole 20 mg delayed release oral capsule (20 sources) Proton Pump Inhibitor Start : 09-24 take 1 capsule by mouth once daily omeprazole (PRILOSEC) 20 mg capsule Take 1 capsule by mouth once daily. 09/24/2023 Active Start: 09-06-2021 take 1 capsule by mo [facility] once daily before breakfast omeprazole (PRILOSEC) 20 mg capsule Indications: Gastroesophageal reflux disease without esophagitis Take 1 capsule by mouth daily before breakfast. 90 capsule 3 09/06/2021 Active Start: 10-22-2018 End: 09-03-2021 take 1 capsule by mouth once daily before breakfast omeprazole (PRILOSEC) 20 mg capsule Indications: Gastroesophageal reflux disease without esophagitis Take 1 capsule by mouth daily before breakfast. 90 capsule 3 10/22/2018 09/03/2021 Discontinued Comment on above: Take 1 capsule by mo uth daily before breakfast. Take 1 capsule by mo uth once daily. predniSONE 20 mg oral tablet (6 sources) Start: 07-22-2024 End: 07-27-2024 take 1 tablet by mouth twice daily predniSONE (DELTASONE) 20 mg tablet Indications: Acute bronchitis, unspecified organism Take 1 tablet by mouth two times a day for 5 days. 10 tablet 07/22/2024 07/27/2024 Active Start: 02-20-2023 predniSONE (DE LTASONE) 10 mg tablet Take 40 mg x 3 days, 20 mg x 3 days, 10 mg x 3 days. Take with food, once daily 21 tablet 0 02/20/2023 Active Start: 06-26-2022 End: 07-05-2022 predniSONE (DELTASONE) 10 mg tablet Indications: Allergic contact dermatitis, unspecified trigger Take 4 tabs daily for 3 days, then 2 tabs daily for 3 days, then 1 tab daily for 3 days with food. 21 tablet 0 06/26/2022 07/05/2022 Active Start: 09-03-2021 End: 09-08-2021 take 1 tablet by mouth once daily predniSONE (DELTASONE) 20 mg tablet Indications: Viral illness Take 1 tablet by mouth once daily for 5 days. 5 tablet 09/03/2021 09/08/2021 Comment on above: Take 4 tabs daily fo r 3 days, then 2 tabs daily for 3 days, then 1 tab daily for 3 days with food. Take 40 mg x 3 days, 20 mg x 3 days, 10 mg x 3 days. Take with food, once daily semaglutide (OZEMPIC) 0.25 mg or 0.5 mg (2 mg/3 mL) pen (2 sources) Start: 03-24-2025 End: 05-19-2025 semaglutide (OZEMPIC) 0.25 mg or 0.5 mg (2 mg/3 mL) pen Indications: Obstructive sleep apnea syndrome , Obesity, Class III, BMI 40-49.9 (morbid obesity) (HCC) Inject 0.25 mg subcutaneously one time a week. 3 mL 03/24/2025 05/19/2025 Active sildenafil 50 mg oral tablet (19 sources) Phosphodiesterase 5 Inhibitor Start: 09-29-2022 sildenafil (VIAGRA) 50 mg tablet Take one to two pills as needed an hour prior to sexual activity. 30 tablet 5 09/29/2022 Active Comment on above: Take one to two pill s as needed an hour prior to sexual activity. Completed/Discontinued Medications Medication Drug Class(es) Dates Sig (Normalized) Sig (Original) [id number] 200 actuat albuterol 0.09 mg/actuat metered dose inhaler (16 sources) beta2-Adrenergic Agonist Start: 09-03-2021 End: 07-17-2023 take 1-2 puff(s) by inhalation every four hours as needed albuterol HFA (PROAIR HFA) 90 mcg/actuation inhaler Indications: Viral illness Inhale 1-2 Puffs as instructed every 4 hours as needed. 18 g 09/03/2021 07/17/2023 Discontinued Comment on above: Inhale 1-2 Puffs as instructed every 4 hours as needed. Ascorbic Ylff-Oiceyhfwc-Wco (EMERGEN-C) 1,000 mg pwep (16 sources) End: 07-17-2023 Ascorbic Gjif-Jqhqizedp-Aqo (EMERGEN-C) 1,000 mg pwep Take by mouth. 07/17/2023 Discontinued Ascorbic Acid-Mu ltivits-Min (EMERGEN-C) 1,000 mg pwep Take by mouth. 0 Active Comment on above: Take by mouth. cyclobenzaprine hydrochloride 5 mg oral tablet (7 sources) Muscle Relaxant Start: take 1 tablet by mouth every eight hours as needed cyclobenzaprine (FLEXERIL) 5 mg tablet Take 1 tablet by mouth three times daily as needed. 30 tablet 1 01/05/2023 Active Comment on above: Take 1 tablet by coreen three times daily as needed. diclofenac sodium 0.01 mg/mg topical gel (16 sources) Nonsteroidal Anti-inflammatory Drug Start: End: diclofenac (VOLTAREN ARTHRITIS PAIN) 1 % topical gel Indications: Tardive dyskinesia , Neck pain Apply 2 g to affected area four times daily. 50 g 2 04/04/2021 07/17/2023 Discontinued Comment on above: Apply 2 g to affecte d area four times daily. etodolac 200 mg oral capsule (7 sources) Nonsteroidal Anti-inflammatory Drug Start: take 1 capsule by mouth every eight hours etodolac (LODINE) 200 mg capsule Take 1 capsule by mouth every 8 hours. 20 capsule 1 01/05/2023 Active Comment on above: Take 1 capsule by mo [facility] every 8 hours. triamcinolone acetonide 1 mg/ml topical cream (14 sources) Corticosteroid Start: triamcinolone acetonide (KENALOG) 0.1 % cream Indications: Allergic contact dermatitis, unspecified trigger Apply 1 application to affected area three times daily. Apply sparingly to area for rash/itching. 30 g 0 06/26/2022 Active Comment on above: Apply 1 application to affected area three times daily. Apply sparingly to area for rash/itching. zolpidem tartrate 10 mg oral tablet (4 sources) gamma-Aminobutyric Acid-ergic Agonist Start: 023 End: take 1 tablet by mouth at bedtime as needed zolpidem (AMBIEN) 10 mg Indications: Insomnia, unspecified type Take 1 tablet by mouth at bedtime as needed (insomnia) for up to 90 days. 30 tablet 2 02/20/2023 09/24/2023 Discontinued Comment on above: Take 1 tablet by coreen at bedtime as needed (insomnia) for up to 90 days. Problems Active Problems Problem Classification Problem Date Documented Da te Episodic/Chronic Acquired foot deformities (1 source) Right foot drop; Translations: [Foot drop, right foot] Episodic Allergic reactions (1 source) Allergic contact dermatitis; Translations: [Allergic contact dermatitis, unspecified cause] Episodic Lizama (1 source) Acid chemical burn of cornea and conjunctival sac; Translations: [Corrosion of cornea and conjunctival sac, left eye, initial encounter] Episodic Disorders of lipid metabolism (10 sources) Hyperlipidemia; Translations: [Hyperlipidemia, unspecified] Onset: 4 09-24-2023 Chronic Esophageal disorders (20 sources) Gastroesophageal reflux disease; Translations: [Gastro-esophageal reflux disease without esophagitis] Onset: 4 10-23-2014 Chronic Gastrointestinal hemorrhage (3 sources) Rectal hemorrhage; Translations: [Hemorrhage of anus and rectum] Onset: 4 10-08-2023 Episodic Nonspecific chest pain (3 sources) Atypical chest pain; Translations: [Other chest pain] Episodic Nutritional deficiencies (20 sources) Vitamin D deficiency; Translations: [Vitamin D deficiency, unspecified] Onset: 5 10-23-2014 Chronic Other connective tissue disease (1 source) Swelling of limb; Translations: [Other specified soft tissue disorders] 01-26-2023 Episodic Other gastrointestinal disorders (1 source) Diarrhea, unspecified; Translations: [Diarrhea, unspecified type] Onset: 4 Episodic Other hereditary and degenerative nervous system conditions (1 source) Tic of organic origin; 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] Chronic Other hereditary and degenerative nervous system conditions (1 source) Restless legs; Translations: [Restless legs syndrome] 03-24-2025 Chronic Other hereditary and degenerative nervous system conditions (1 source) Essential tremor; Translations: [Essential tremor] 03-24-2025 Chronic Other hereditary and degenerative nervous system conditions (1 source) Restless legs syndrome; Translations: [Restless legs syndrome] Onset: 5 Chronic Other hereditary and degenerative nervous system conditions (1 source) Essential tremor; Translations: [Essential tremor] Onset: 5 Chronic Other hereditary and degenerative nervous system conditions (5 sources) Tardive dyskinesia; Translations: [Drug induced subacute dyskinesia] Episodic Other lower respiratory disease (1 source) Cough; Translations: [Cough] 09-06-2021 Episodic Other male genital disorders (20 sources) Male erectile dysfunction, unspecified; Translations: [Impotence of organic origin] Onset: 5 12-25-2014 Chronic Other nervous system disorders (1 source) Tremor; Translations: [Tremor, unspecified] Episodic Other nervous system disorders (1 source) Numbness of foot ; Translations: [Anesthesia of skin] Episodic Other nervous system disorders (1 source) Finding of sensation of lower limb; Translations: [Other disturbances of skin sensation] Episodic Other non-traumatic joint disorders (1 source) Shoulder pain; Translations: [Pain in right shoulder] Episodic Other nutritional; endocrine; and metabolic disorders (20 sources) Body mass index 40+ - severely obese; Translations: [Morbid (severe) obesity due to excess calories] Onset: 4 08-29-2021 Chronic Other nutritional; endocrine; and metabolic disorders (1 source) Obesity; Translations: [Obesity, unspecified] Chronic Other screening for suspected conditions (not mental disorders or infectious disease) (6 sources) Patient encounter status; Translations: [Encounter for screening for diabetes mellitus] Onset: 4 Episodic Other upper respiratory infections (1 source) Acute sinusitis; Translations: [Acute sinusitis, unspecified] 09-08-2024 Episodic Otitis media and related conditions (1 source) Acute left otitis media; Translations: [Otitis media, unspecified, left ear] 09-08-2024 Episodic Poisoning by nonmedicinal substances (1 source) Chemical burn of right eye; Translations: [Toxic effect of corrosive acids and acid-like substances, accidental (unintentional), initial encounter] Episodic Residual codes; unclassified (2 sources) Obstructive sleep apnea syndrome; Translations: [Obstructive sleep apnea (adult) (pediatric)] 03-24-2025 Chronic Residual codes; unclassified (1 source) Obstructive sleep apnea (adult) (pediatric); Translations: [Obstructive sleep apnea syndrome] Onset: 5 Chronic Residual codes; unclassified (1 source) Insomnia; Translations: [Insomnia, unspecified] Episodic Residual codes; unclassified (2 sources) Family history of cancer of colon; Translations: [Family history of malignant neoplasm of digestive organs] 10-08-2023 Episodic Residual codes; unclassified (1 source) Family history of malignant neoplasm of digestive organs; Translations: [Family history of colon cancer] Onset: 4 Episodic Screening and history of mental health and substance abuse codes (2 sources) Encounter for screening for depression; Translations: [Encounter for screening examination for other mental health and behavioral disorders] Onset: 5 Episodic Sprains and strains (2 sources) Lumbosacral strain; Translations: [Strain of muscle, fascia and tendon of lower back, initial encounter] Episodic Substance-related disorders (10 sources) History of drug abuse; Translations: [Other psychoactive substance abuse, in remission] Onset: 09-24-2023 Chronic Unclassified (1 source) Obesity, Class III, BMI 40-49.9 (morbid obesity) (HCC); Translations: [Obesity, Class III, BMI 40-49.9 (morbid obesity) (HCC)] Onset: Viral infection (1 source) Disease caused by 2019-nCoV; Translations: [COVID-19] Episodic Past or Other Problems Problem Classification Problem Date Documented Da te Episodic/Chronic Abdominal pain (8 sources) Right lower quadrant pain; Translations: [Right lower quadrant pain] Onset: 09-18-2006 Resolved: 02-16-2017 02-16-2017 Episodic Acute bronchitis (3 sources) Acute bronchitis; Translations: [Acute bronchitis, unspecified] Onset: 07-22-2024 07-22-2024 Episodic Mycoses (20 sources) Tinea pedis; Translations: [Tinea pedis] Onset: 07-23-2007 07-23-2007 Episodic Other connective tissue disease (20 sources) Plantar fascial fibromatosis; Translations: [Plantar fascial fibromatosis] Onset: 07-23-2007 07-23-2007 Episodic Other gastrointestinal disorders (13 sources) Diarrhea; Translations: [Diarrhea, unspecified] Onset: 10-08-2023 Episodic Other lower respiratory disease (10 sources) Snoring; Translations: [Snoring] Onset: 09-24-2023 09-24-2023 Episodic Other lower respiratory disease (8 sources) Dyspnea; Translations: [Shortness of breath] Onset: 10-23-2014 Resolved: 02-16-2017 02-16-2017 Episodic Other non-traumatic joint disorders (8 sources) Joint pain; Translations: [Pain in unspecified joint] Onset: 10-23-2014 Resolved: 02-16-2017 02-16-2017 Episodic Other skin disorders (20 sources) Disorder of skin; Translations: [Other specified disorders of the skin and subcutaneous tissue] Onset: 07-23-2007 07-23-2007 Episodic Residual codes; unclassified (8 sources) Total body pain syndrome; Translations: [Pain, unspecified] Onset: 03-31-2014 Resolved: 02-16-2017 02-16-2017 Episodic Residual codes; unclassified (8 sources) Tobacco user; Translations: [Tobacco use] Onset: 10-23-2014 Resolved: 02-23-2015 02-23-2015 Episodic Spondylosis; intervertebral disc disorders; other back problems (20 sources) Neck pain; Translations: [Cervicalgia] Onset: 03-16-2014 Resolved: 02-16-2017 Episodic Substance-related disorders (10 sources) Marijuana user; Translations: [Cannabis use, unspecified, uncomplicated] Onset: 09-24-2023 09-24-2023 Episodic Results Test Name Value Interpretation Reference Range Facility [facility] 03-25-2025 [facility] Telephone (INTM[facility]) JATIN MEZA ([id number]) 1970 M Date Time Provider Department 03/25/25 ROGERS PISANO INTWS During your visit today, we recorded the following information about you: Iliana Richardson LPN 03/25/2025 4:23 PM Signed PA fax rec'd from [facility] for ozempic. Pt is not diabetic. Ozempic is covered for pts who have diabetes. Allergies As of Date: 03/25/2025 Noted Allergy Reaction DARVOCET A500 (PROPOXYPHENE N-DENNIS*07/23/2007 Comments: itch HYDROCODONE BITARTRATE 05/19/2015 9 - Itching Date Reviewed: 03/24/2025 Reviewed by: Allison Glover MA - Fully Assessed Reason for Visit: Insurance Authorization [[id number]] Prescriptions as of 03/27/2025 - semaglutide (OZEMPIC) 0.25 mg or 0.5 mg (2 mg/3 mL) pen Inject 0.25 mg subcutaneously one time a week. - clonazePAM (KLONOPIN) 1 mg tablet Take 1 tablet by mouth two times a day for 180 days. - omeprazole (PRILOSEC) 20 mg capsule Take 1 capsule by mouth once daily. - cholecalciferol (VITAMIN D3) 1,000 unit tab tablet Take 1 tablet by mouth once daily. - sildenafil (VIAGRA) 50 mg tablet Take one to two pills as needed an hour prior to sexual activity. Problem List As Of Date 03/25/2025 Noted Resolved Abdominal pain, right lower quadrant [R10.31] 09/18/2006 02/16/2017 DERMATOPHYTOSIS OF FOOT [B35.3] 07/23/2007 SKIN DISORDERS NEC [L98.8] 07/23/2007 PLANTAR FIBROMATOSIS [M72.2] 07/23/2007 Back pain [M54.9] 03/16/2014 02/16/2017 Obesity, Class III, BMI 40-49.9 (morbid obesity*03/31/2014 Total body pain [R52] 03/31/2014 02/16/2017 GERD (gastroesophageal reflux disease) [K21.9] 07/06/2014 Joint pain [M25.50] 10/23/2014 02/16/2017 SOB (shortness of breath) [R06.02] 10/23/2014 02/16/2017 Tobacco abuse disorder [Z72.0] 10/23/2014 02/23/2015 Vitamin D deficiency [E55.9] 10/23/2014 ED (erectile dysfunction) [N52.9] 12/25/2014 Lumbosacral radiculopathy [M54.17] 02/21/2023 Acute back pain with sciatica, right [M54.41] 02/21/2023 Marijuana use [F12.90] 09/24/2023 History of drug abuse (HCC) [F19.11] 09/24/2023 Snoring [R06.83] 09/24/2023 Hyperlipidemia [E78.5] 09/24/2023 Diarrhea [R19.7] 10/08/2023 Encounter Status:Closed by ILIANA RICHARDSON on 03/27/25 Normal [facility] Basic metabolic 2000 panelon 03-24-2025 Anion gap [Moles/Vol] 14 mmol/L 8 - 15 mmol/L [facility] Calcium [Mass/Vol] 10 mg/dL 8.5 - 10. 2 mg/dL [facility] Chloride [Moles/Vol] 100 mmol/L 98 - 10 7 mmol/L [facility] CO2 [Moles/Vol] 25 mmol/L 22 - 30 mmol/L [facility] Creatinine [Mass/Vol] 0.84 mg/dL 0.73 - 1.22 mg/dL [facility] GFR/1.73 sq M.predicted among non-blacks MDRD (S/P/Bld) [Vol rate/Area] 104 mL/min/{1.73_m2} - PINF [facility] Comment on above: Estimated Glomerular Filtration Rate (eGFR) is calculated using the 2020 CKD-EPI creatinine equation. This equation utilizes serum creatinine, sex, and age as parameters. The creatinine assay has traceable calibration to isotope dilution-mass spectrometry. Refer to KDIGO guidelines for clinical interpretation. In patients with unstable renal function, e.g. those with acute kidney injury, the eGFR may not accurately reflect actual GFR. Glucose [Mass/Vol] 86 mg/dL 74 - 99 mg/dL [facility] Comment on above: The [place] Diab[employer] Association (ADA) provides guidance for cutoff values for fasting glucose and random glucose. The ADA defines fasting as no caloric intake for at least 8 hours. Fasting plasma glucose results between 100 to 125 mg/dL indicate increased risk for diabetes (prediabetes). Fasting plasma glucose results greater than or equal to 126 mg/dL meet the criteria for diagnosis of diabetes. In the absence of unequivocal hyperglycemia, results should be confirmed by repeat testing. In a patient with classic symptoms of hyperglycemia or hyperglycemic crisis, random plasma glucose results greater than or equal to 200 mg/dL meet the criteria for diagnosis of diabetes. Reference: Standards of Medical Care in Diabetes 2016, [place] [employer] Association. Diabetes Care. 2016.39(Suppl 1). Interpretation and review of laboratory results Normal [facility] Potassium [Moles/Vol] 4.5 mmol/L 3.7 - 5.1 mmol/L [facility] Sodium [Moles/Vol] 139 mmol/L 136 - 144 mmol/L [facility] Urea nitrogen [Mass/Vol] 15 mg/dL 9 - 24 mg/dL [facility] Anion gap [Moles/Vol] 14 mmol/L Normal 8-15 [facility] Comment on above: Order Comment: Speci men Type: BLOOD SPECIMEN Ordering Facility: [facility] Address: [address] [place], [place] [address] [address] Performed By: #### 2 4321-2 #### [facility] CLIA [id number] [address] [place], [place] [id number] [place] Calcium [Mass/Vol] 10.0 mg/dL Normal 8.5-10.2 [facility] Comment on above: Order Comment: Speci men Type: BLOOD SPECIMEN Ordering Facility: [facility] Address: [address] [place] [address] Performed By: #### 2 4321-2 #### [facility] CLIA [id number] [address] [place] [address] [place] Chloride [Moles/Vol] 100 mmol/L Normal 98-107 [facility] Comment on above: Order Comment: Speci men Type: BLOOD SPECIMEN Ordering Facility: [facility] Address: [address] [place] [address] Performed By: #### 2 4321-2 #### [facility] CLIA [id number] [address] [place] [address] [place] CO2 [Moles/Vol] 25 mmol/L Normal 22-30 [facility] Comment on above: Order Comment: Speci men Type: BLOOD SPECIMEN Ordering Facility: [facility] Address: [address] [place] [address] Performed By: #### 2 4321-2 #### [facility] CLIA [id number] [address] [place] [address] [place] Creatinine [Mass/Vol] 0.84 mg/dL Normal 0.73-1.22 [facility] Comment on above: Order Comment: Speci men Type: BLOOD SPECIMEN Ordering Facility: [facility] Address: [address] [place] [address] Performed By: #### 2 4321-2 #### [facility] CLIA [id number] [address] [place], [place] [id number] [place] eGFRcr SerPlBld CKD-EPI 2020 104 mL/min/1.73m??? Normal >=60 [facility] Comment on above: Order Comment: Yuri mancera Type: BLOOD SPECIMEN Ordering Facility: [facility] Address: [address] [place] [address] Result Comment: Brenda mated Glomerular Filtration Rate (eGFR) is calculated using the 2020 CKD-EPI creatinine equation. This equation utilizes serum creatinine, sex, and age as parameters. The creatinine assay has traceable calibration to isotope dilution-mass spectrometry. Refer to KDIGO guidelines for clinical interpretation. In patients with unstable renal function, e.g. those with acute kidney injury, the eGFR may not accurately reflect actual GFR. Performed By: #### 2 4321-2 #### [facility] CLIA [id number] [address] [place] [address] [place] Glucose [Mass/Vol] 86 mg/dL Normal 74-99 [facility] Comment on above: Order Comment: Yuri mancera Type: BLOOD SPECIMEN Ordering Facility: [facility] Address: [address] [place] [address] Result Comment: The [place] [employer] (ADA) provides guidance for cutoff values for fasting glucose and random glucose. The ADA defines fasting as no caloric intake for at least 8 hours. Fasting plasma glucose results between 100 to 125 mg/dL indicate increased risk for diabetes (prediabetes). Fasting plasma glucose results greater than or equal to 126 mg/dL meet the criteria for diagnosis of diabetes. In the absence of unequivocal hyperglycemia, results should be confirmed by repeat testing. In a patient with classic symptoms of hyperglycemia or hyperglycemic crisis, random plasma glucose results greater than or equal to 200 mg/dL meet the criteria for diagnosis of diabetes. Reference: Standards of Medical Care in Diabetes 2016, [place] Diabetes Association. Diabetes Care. 2016.39(Suppl 1). Performed By: #### 2 4321-2 #### [facility] CLIA [id number] [address] [place] [address] [place] Potassium [Moles/Vol] 4.5 mmol/L Normal 3.7-5.1 [facility] Comment on above: Order Comment: Yuri mancera Type: BLOOD SPECIMEN Ordering Facility: [facility] Address: [address] [place] [address] Performed By: #### 2 4321-2 #### [facility] CLIA [id number] [address] [place] [address] [place] Sodium [Moles/Vol] 139 mmol/L Normal 136-144 [facility] Comment on above: Order Comment: Speci men Type: BLOOD SPECIMEN Ordering Facility: [facility] Address: [address] [place] [address] Performed By: #### 2 4321-2 #### [facility] CLIA [id number] [address] [place] [address] [place] Urea nitrogen [Mass/Vol] 15 mg/dL Normal 9-24 [facility] Comment on above: Order Comment: Speci men Type: BLOOD SPECIMEN Ordering Facility: [facility] Address: [address] [place] [address] Performed By: #### 2 4321-2 #### [facility] CLIA [id number] [address] [place] [address] [place] CBC W Auto Differential pane l (Bld)on 03-24-2025 Basophils (Bld) [#/Vol] 0.08 10*3/uL [facility] Basophils/100 WBC (Bld) 0.8 % [facility] Differential cell count method Nom (Bld) Auto [facility] Eosinophils (Bld) [#/Vol] 0.2 10*3/uL [facility] Eosinophils/100 WBC (Bld) 2 % [facility] Erythrocyte distribution width (RBC) [Ratio] 13.2 % 11.5 - 15.0 % [facility] Hematocrit (Bld) [Volume fraction] 46.9 % 39.0 - 51.0 % [facility] Hemoglobin (Bld) [Mass/Vol] 15 g/dL 13.0 - 17.0 g/dL [facility] Immature granulocytes (Bld) [#/Vol] 0.08 10*3/uL [facility] Immature granulocytes/100 WBC (Bld) 0.8 % [facility] Lymphocytes (Bld) [#/Vol] 3.07 10*3/uL [facility] Lymphocytes/100 WBC (Bld) 30.7 % [facility] MCH (RBC) [Entitic mass] 27.7 pg 26.0 - 34.0 pg [facility] MCHC (RBC) [Mass/Vol] 32 g/dL 30.5 - 36.0 g/dL [facility] MCV (RBC) [Entitic vol] 86.7 fL 80.0 - 100.0 fL [facility] Monocytes (Bld) [#/Vol] 0.75 10*3/uL [facility] Monocytes/100 WBC (Bld) 7.5 % [facility] Neutrophils (Bld) [#/Vol] 5.83 10*3/uL [facility] Neutrophils/100 WBC (Bld) 58.2 % [facility] Nucleated RBC (Bld) [#/Vol] [facility] Nucleated RBC/100 WBC (Bld) [Ratio] 0 % /100 WBC [facility] Platelet mean volume (Bld) [Entitic vol] 11.7 fL 9.0 - 12.7 fL [facility] Platelets (Bld) [#/Vol] 277 10*3/uL [facility] RBC (Bld) [#/Vol] 5.41 10*6/uL 4.20 - 6.0 0 m/uL [facility] WBC (Bld) [#/Vol] 10.01 10*3/uL [facility] Basophils (Bld) [#/Vol] 0.08 10*3/uL Normal <0.11 [facility] Comment on above: Order Comment: Speci men Type: BLOOD SPECIMEN Ordering Facility: [facility] Address: [address] [place] [address] Performed By: #### 5 7021-8 #### [facility] CLIA [id number] [address] [place] [address] [place] Basophils/100 WBC (Bld) 0.8 % Normal [facility] Comment on above: Order Comment: Speci men Type: BLOOD SPECIMEN Ordering Facility: [facility] Address: [address] [place] [address] Performed By: #### 5 7021-8 #### [facility] CLIA [id number] [address] [place] [address] [place] Differential cell count method Nom (Bld) Auto Normal [facility] Comment on above: Order Comment: Speci men Type: BLOOD SPECIMEN Ordering Facility: [facility] Address: [address] [place] [address] Performed By: #### 5 7021-8 #### [facility] CLIA [id number] [address] [place] [address] [place] Eosinophils (Bld) [#/Vol] 0.20 10*3/uL Normal <0.46 [facility] Comment on above: Order Comment: Speci men Type: BLOOD SPECIMEN Ordering Facility: [facility] Address: [address] [place] [address] Performed By: #### 5 7021-8 #### [facility] CLIA [id number] [address] [place] [address] [place] Eosinophils/100 WBC (Bld) 2.0 % Normal [facility] Comment on above: Order Comment: Speci men Type: BLOOD SPECIMEN Ordering Facility: [facility] Address: [address] [place] [address] Performed By: #### 5 7021-8 #### [facility] CLIA [id number] [address] [place] [address] [place] Erythrocyte distribution width (RBC) [Ratio] 13.2 % Normal 11.5-15.0 [facility] Comment on above: Order Comment: Speci men Type: BLOOD SPECIMEN Ordering Facility: [facility] Address: [address] [place] [address] Performed By: #### 5 7021-8 #### [facility] CLIA [id number] [address] [place] [address] [place] Hematocrit (Bld) [Volume fraction] 46.9 % Normal 39.0-51.0 [facility] Comment on above: Order Comment: Speci men Type: BLOOD SPECIMEN Ordering Facility: [facility] Address: [address] [place] [address] Performed By: #### 5 7021-8 #### [facility] CLIA [id number] [address] [place] [address] [place] Hemoglobin (Bld) [Mass/Vol] 15.0 g/dL Normal 13.0-17.0 [facility] Comment on above: Order Comment: Speci men Type: BLOOD SPECIMEN Ordering Facility: [facility] Address: [address] [place] [address] Performed By: #### 5 7021-8 #### [facility] CLIA [id number] [address] [place] [address] [place] Immature granulocytes (Bld) [#/Vol] 0.08 10*3/uL Normal <0.10 [facility] Comment on above: Order Comment: Speci men Type: BLOOD SPECIMEN Ordering Facility: [facility] Address: [address] [place] [address] Performed By: #### 5 7021-8 #### [facility] CLIA [id number] [address] [place] [address] [place] Immature granulocytes/100 WBC (Bld) 0.8 % Normal [facility] Comment on above: Order Comment: Speci men Type: BLOOD SPECIMEN Ordering Facility: [facility] Address: [address] [place] [address] Performed By: #### 5 7021-8 #### [facility] CLIA [id number] [address] [place] [address] [place] Lymphocytes (Bld) [#/Vol] 3.07 10*3/uL Normal 1.00-4.00 [facility] Comment on above: Order Comment: Speci men Type: BLOOD SPECIMEN Ordering Facility: [facility] Address: [address] [place] [address] Performed By: #### 5 7021-8 #### [facility] CLIA [id number] [address] [place] [address] [place] Lymphocytes/100 WBC (Bld) 30.7 % Normal [facility] Comment on above: Order Comment: Speci men Type: BLOOD SPECIMEN Ordering Facility: [facility] Address: [address] [place] [address] Performed By: #### 5 7021-8 #### [facility] CLIA [id number] [address] [place] [address] [place] MCH (RBC) [Entitic mass] 27.7 pg Normal 26.0-34.0 [facility] Comment on above: Order Comment: Speci men Type: BLOOD SPECIMEN Ordering Facility: [facility] Address: [address] [place] [address] Performed By: #### 5 7021-8 #### [facility] CLIA [id number] [address] [place] [address] [place] MCHC (RBC) [Mass/Vol] 32.0 g/dL Normal 30.5-36.0 [facility] Comment on above: Order Comment: Speci men Type: BLOOD SPECIMEN Ordering Facility: [facility] Address: [address] [place] [address] Performed By: #### 5 7021-8 #### [facility] CLIA [id number] [address] [place] [address] [place] MCV (RBC) [Entitic vol] 86.7 fL Normal 80.0-100.0 [facility] Comment on above: Order Comment: Speci men Type: BLOOD SPECIMEN Ordering Facility: [facility] Address: [address] [place] [address] Performed By: #### 5 7021-8 #### [facility] CLIA [id number] [address] [place] [address] [place] Monocytes (Bld) [#/Vol] 0.75 10*3/uL Normal <0.87 [facility] Comment on above: Order Comment: Speci men Type: BLOOD SPECIMEN Ordering Facility: [facility] Address: [address] [place] [address] Performed By: #### 5 7021-8 #### [facility] CLIA [id number] [address] [place] [address] [place] Monocytes/100 WBC (Bld) 7.5 % Normal [facility] Comment on above: Order Comment: Speci men Type: BLOOD SPECIMEN Ordering Facility: [facility] Address: [address] [place] [address] Performed By: #### 5 7021-8 #### [facility] CLIA [id number] [address] [place] [address] [place] Neutrophils (Bld) [#/Vol] 5.83 10*3/uL Normal 1.45-7.50 [facility] Comment on above: Order Comment: Speci men Type: BLOOD SPECIMEN Ordering Facility: [facility] Address: [address] [place] [address] Performed By: #### 5 7021-8 #### [facility] CLIA [id number] [address] [place] [address] [place] Neutrophils/100 WBC (Bld) 58.2 % Normal [facility] Comment on above: Order Comment: Speci men Type: BLOOD SPECIMEN Ordering Facility: [facility] Address: [address] [place] [address] Performed By: #### 5 7021-8 #### [facility] CLIA [id number] [address] [place] [address] [place] Nucleated RBC (Bld) [#/Vol] 10*3/uL Normal <0.01 [facility] Comment on above: Order Comment: Speci men Type: BLOOD SPECIMEN Ordering Facility: [facility] Address: [address] [place] [address] Performed By: #### 5 7021-8 #### [facility] CLIA [id number] [address] [place] [address] [place] Nucleated RBC/100 WBC (Bld) [Ratio] 0.0 /100 WBC Normal [facility] Comment on above: Order Comment: Speci men Type: BLOOD SPECIMEN Ordering Facility: [facility] Address: [address] [place] [address] Performed By: #### 5 7021-8 #### [facility] CLIA [id number] [address] [place] [address] [place] Platelet mean volume (Bld) [Entitic vol] 11.7 fL Normal 9.0-12.7 [facility] Comment on above: Order Comment: Speci men Type: BLOOD SPECIMEN Ordering Facility: [facility] Address: [address] [place] [address] Performed By: #### 5 7021-8 #### [facility] CLIA [id number] [address] [place] [address] [place] Platelets (Bld) [#/Vol] 277 10*3/uL Normal 150-400 [facility] Comment on above: Order Comment: Speci men Type: BLOOD SPECIMEN Ordering Facility: [facility] Address: [address] [place] [address] Performed By: #### 5 7021-8 #### [facility] CLIA [id number] [address] [place] [address] [place] RBC (Bld) [#/Vol] 5.41 10*6/uL Normal 4.20-6.00 [facility] Comment on above: Order Comment: Speci men Type: BLOOD SPECIMEN Ordering Facility: [facility] Address: [address] [place] [address] Performed By: #### 5 7021-8 #### [facility] CLIA [id number] [address] [place] [address] [place] WBC (Bld) [#/Vol] 10.01 10*3/uL Normal 3.70-11.00 [facility] Comment on above: Order Comment: Speci men Type: BLOOD SPECIMEN Ordering Facility: [facility] Address: [address] [place] [address] Performed By: #### 5 7021-8 #### [facility] CLIA [id number] [address] [place] [address] [place] [address] [place] CNOVon 03-24-2025 CNOV Office Visit (INTMWS ) JATIN MEZA ([id number]) 1970 M Date Time Provider Department 03/24/25 11:00 AM ROGERS PISANO INTMWS During your visit today, we recorded the following information about you: Pulse Respiration Blood pressure Weight 99/minute 16/minute 148/101 132 kg Rogers Pisano MD 03/24/2025 7:09 PM Signed Reason for Visit Annual physical HPI Jatin Meza is a 54-year-old male with a history of internal tremors, sleep apnea, and obesity, presenting for weight management and discussion of current treatments. Jatin reports a longstanding history of internal tremors, which he describes as constant but manageable. He has been using medical marijuana for approximately one year to alleviate these tremors and associated symptoms, including restless leg syndrome and sleep disturbances. He obtained a medical marijuana card and has been using less than half of the prescribed dose to avoid psychoactive effects. He reports significant improvement in his tremors, sleep quality, and overall stress management since starting this treatment. He denies any negative side effects from the medical marijuana and notes that it has not affected his appetite or eating habits. Jatin also reports difficulty with weight loss despite maintaining a clean diet and being physically active. He attributes his weight gain to his demanding work schedule, which involves extensive travel and physical labor. He reports consuming 50 grams of protein daily, drinking water, and avoiding soda and juices. He also notes that his prepares meals for him to avoid eating out while traveling. Despite these efforts, he finds it challenging to lose weight and expresses interest in exploring medical options for weight management. He specifically inquires about the use of semaglutide (Wegovy) for weight loss, citing positive results observed in a family member. Jatin has a history of sleep apnea but reports significant improvement in his sleep quality since starting medical marijuana. He sleeps on his right side and gets approximately six hours of sleep per night, waking up feeling refreshed and ready for the day. He denies using a CPAP machine and reports no current issues with insomnia or restless leg syndrome. Jatin expresses a strong desire to lose weight for health reasons and to improve his quality of life. He reports that his current weight makes it difficult to perform certain activities, such as putting on socks, and causes achiness in his legs, particularly the left one. He is motivated to pursue weight loss to improve his overall health and longevity, as well as to be more active and present for his family and work responsibilities. Social History Tobacco Use Smoking status: Former Current packs/day: 0.00 Types: Cigarettes Quit date: 09/22/2014 Years since quittin.5 Smokeless tobacco: Never Tobacco comments: Light use - 1/2 pp 2 weeks Vaping Use Vaping status: Never Used Substance Use Topics Alcohol use: Yes Comment: 1 beer a couple times per week Drug use: Yes Frequency: 7.0 times per week Types: Marijuana Comment: uses for involuntary body movements, h/o meth and pill abuse - clean since 2010 Past medical history, appointments, medications, allergies reviewed. Pertinent Lab/Diagnostic Studies are reviewed and discussed today Current Outpatient Medications: omeprazole (PRILOSEC) 20 mg capsule sildenafil (VIAGRA) 50 mg tablet semaglutide (OZEMPIC) 0.25 mg or 0.5 mg (2 mg/3 mL) pen clonazePAM (KLONOPIN) 1 mg tablet cholecalciferol (VITAMIN D3) 1,000 unit tab tablet Health Maintenance There are no preventive care reminders to display for this patient.@ Review Of Systems Constitutional: (-) insomnia Ears/Nose/Mouth/Throat : (+) snoring Musculoskeletal: (+) bilateral leg pain, (-) hip pain Neurological: (+) tremor, (+) head jerking, (-) restless legs Psychiatric: (+) increased stress, (-) depressed mood Physical Exam BP 148/101 Pulse 99 Resp 16 Wt 132 kg (291 lb) SpO2 98% BMI 46.97 kg/m? GENERAL: NAD, alert and oriented. SKIN: Unremarkable, no rash or skin lesions. HEAD: Normocephalic. LUNGS: Clear to auscultation bilaterally, no wheezes/rhonchi/rales. HEART: Regular rate and rhythm, no murmurs. No ectopy. EXTREMITIES: Normal, no deformities, no skin discoloration, no edema. NEURO: Awake, alert and oriented x3, cranial nerves II-XII grossly intact, normal gait, no involuntary motions. Assessment and Plan 1. Annual physical exam (Z00.00) Patient is due for an annual physical exam. - Conducted a comprehensive physical examination. - Ordered CBC and BMP to assess renal function and hemoglobin levels. - Discussed the importance of regular health maintenance and screenings. 2. Obstructive sleep apnea syndrome (G47.33) Patient reports improved sleep quality and reduc (more content not included)... Normal [facility] CNOVon 09-08-2024 CNOV Office Visit (UCWSTR ) JATIN MEZA ([id number]) 1970 M Date Time Provider Department 09/08/24 2:30 PM MARTIN [facility] During your visit today, we recorded the following information about you: Temperature Pulse Respiration Blood pressure 97.8 degrees 81/minute 16/minute 130/84 Weight 136.2 kg Martin Head MD 09/08/2024 2:45 PM Signed Patient presents with: Ear Pain: Left ear pain, head congestion, right eye pressure x 1 week HPI: Feeling sick for 1 week with head congestion. Positive symptoms: left ear pain and decreased hearing, Sinus pressure Improved: right earache, Cough, Chest tightness, Nasal Congestion, Post nasal drainage, Chills, Negative symptoms: Fever, OTC: Sudafed, Lozenges, albuterol MEDICATIONS: Current Outpatient Medications Medication Sig clonazePAM (KLONOPIN) 1 mg tablet Take 1 tablet by mouth two times a day for 180 days. omeprazole (PRILOSEC) 20 mg capsule Take 1 capsule by mouth once daily. cholecalciferol (VITAMIN D3) 1,000 unit tab tablet Take 1 tablet by mouth once daily. sildenafil (VIAGRA) 50 mg tablet Take one to two pills as needed an hour prior to sexual activity. No current facility-administered medications for this visit. ALLERGIES: ALLERGIES Allergen Reactions Darvocet A500 [Prop* itch Hydrocodone Bitartr* Itching VITALS: BP 130/84 Pulse 81 Temp 36.6 ?C (97.8 ?F) (Tympanic) Resp 16 Wt (!) 136.2 kg (300 lb 4.3 oz) SpO2 97% BMI 48.46 kg/m? PHYSICAL EXAM: GEN: mildly ill appearing HEENT: PERRL, EOMI, conjunctiva clear Ears: canals clear. RTM without erythema or bulge, likely effusion. Left tympanic membrane with erythema, bulge, and effusion. Sinuses: tender frontal sinus, tender maxillary sinuses Throat: moist mucous membranes, mild erythema, no exudate Neck: supple, no thyromegaly, no lymphadenopathy HEART: regular rate, regular rhythm, no murmurs LUNGS: clear to auscultation, no wheezes or crackles, no increased WOB ASSESSMENT/PLAN: 1. Acute otitis media, left - ICD9: 382.9, ICD10: H66.92 (primary diagnosis) 2. Acute non-recurrent sinusitis, unspecified location - ICD9: 461.9, ICD10: J01.90 - Will begin treatment with as per antibiotic as written, see orders - AMOXICILLIN 875 MG-POTASSIUM CLAVULANATE 125 MG TABLET -Supportive care treatment with as needed analgesia, decongestant, and warm compress. Martin Head MD Allergies As of Date: 09/08/2024 Noted Allergy Reaction DARVOCET A500 (PROPOXYPHENE N-DENNIS*07/23/2007 Comments: itch HYDROCODONE BITARTRATE 05/19/2015 9 - Itching Date Reviewed: 09/08/2024 Reviewed by: Renetta Loaiza LPN - Fully Assessed Reason for Visit: Ear Pain [817] Cmt: Left ear pain, head congestion, right eye pressure x 1 week Primary Visit Diagnosis:Acute otitis media, left [H66.92] Other Visit Diagnosis:Acute non-recurrent sinusitis, unspecified location [J01.90] Order(s):amoxicillin-c lavulanate potassium (AUGMENTIN) 875-125 mg per tabletTake 1 tablet by mouth two times a day for 5 days.Disp: 10 tabletRfl: 0 Prescriptions as of 09/08/2024 - amoxicillin-clavulanat e potassium (AUGMENTIN) 875-125 mg per tablet Take 1 tablet by mouth two times a day for 5 days. - clonazePAM (KLONOPIN) 1 mg tablet Take 1 tablet by mouth two times a day for 180 days. - omeprazole (PRILOSEC) 20 mg capsule Take 1 capsule by mouth once daily. - cholecalciferol (VITAMIN D3) 1,000 unit tab tablet Take 1 tablet by mouth once daily. - sildenafil (VIAGRA) 50 mg tablet Take one to two pills as needed an hour prior to sexual activity. Problem List As Of Date 09/08/2024 Noted Resolved Abdominal pain, right lower quadrant [R10.31] 09/18/2006 02/16/2017 DERMATOPHYTOSIS OF FOOT [B35.3] 07/23/2007 SKIN DISORDERS NEC [L98.8] 07/23/2007 PLANTAR FIBROMATOSIS [M72.2] 07/23/2007 Back pain [M54.9] 03/16/2014 02/16/2017 Obesity, Class III, BMI 40-49.9 (morbid obesity*03/31/2014 Total body pain [R52] 03/31/2014 02/16/2017 GERD (gastroesophageal reflux disease) [K21.9] 07/06/2014 Joint pain [M25.50] 10/23/2014 02/16/2017 SOB (shortness of breath) [R06.02] 10/23/2014 02/16/2017 Tobacco abuse disorder [Z72.0] 10/23/2014 02/23/2015 Vitamin D deficiency [E55.9] 10/23/2014 ED (erectile dysfunction) [N52.9] 12/25/2014 Lumbosacral radiculopathy [M54.17] 02/21/2023 Acute back pain with sciatica, right [M54.41] 02/21/2023 Marijuana use [F12.90] 09/24/2023 History of drug abuse (HCC) [F19.11] 09/24/2023 Snoring [R06.83] 09/24/2023 Hyperlipidemia [E78.5] 09/24/2023 Diarrhea [R19.7] 10/08/2023 Prescriptions ordered this encounter Disp Refills Start End AMOXICILLIN 875 MG-POTASSIUM CLAVULA* 10 t* 0 09/08/2024 09/13/2024 Route: ORAL Sig: Take 1 tablet by mouth two times a day for 5 days. Level of Service: OFFICE/OUTPATIENT ESTABLISHED MOD [facility] 30 MIN [74985] (more content not included)... Normal [facility] CNOVon 07-22-2024 CNOV Office Visit (UCWSTR ) JATIN MEZA ([id number]) 1970 M Date Time Provider Department 07/22/24 12:30 PM WILLA PERKINS WS During your visit today, we recorded the following information about you: Temperature Pulse Respiration Blood pressure 98.2 degrees 99/minute 16/minute 122/78 Weight 134.2 kg Willa Perkins PA-C 07/22/2024 1:01 PM Signed This note was created using Application Craftter. Subjective Jatin Meza is a 53 year old male. Patient is a 53-year-old male who complains of a loose, irritating cough that he has been experiencing for the past 4 days. Patient reports mild congestion but denies sinus pressure, ear pain or sore throat. Patient has no history of asthma or COPD and does not smoke. Patient denies fever, chills or myalgia. Patient states that his 48-year-old niece developed acute onset of cough last evening and subsequently . Patient arrives for evaluation of his cough. Patient denies left chest pain, tightness or pressure reports no episodes of dyspnea or shortness of breath. Patient states that his cough appears to be worse when he first awakens in the morning. Cough Review of Systems Respiratory: Positive for cough. All other systems reviewed and are negative. Objective BP 122/78 Pulse 99 Temp 36.8 ?C (98.2 ?F) (Tympanic) Resp 16 Wt 134.2 kg (295 lb 13.7 oz) SpO2 97% BMI 47.75 kg/m? Physical Exam Vitals and nursing note reviewed. Constitutional: Appearance: Normal appearance. He is normal weight. HENT: Head: Normocephalic and atraumatic. Right Ear: Tympanic membrane, ear canal and external ear normal. Left Ear: Tympanic membrane, ear canal and external ear normal. Nose: Nose normal. Mouth/Throat: Mouth: Mucous membranes are moist. Pharynx: Oropharynx is clear. Eyes: Extraocular Movements: Extraocular movements intact. Conjunctiva/sclera: Conjunctivae normal. Pupils: Pupils are equal, round, and reactive to light. Cardiovascular: Rate and Rhythm: Normal rate and regular rhythm. Pulses: Normal pulses. Heart sounds: Normal heart sounds. Pulmonary: Effort: Pulmonary effort is normal. Breath sounds: Normal breath sounds. Musculoskeletal: Cervical back: Normal range of motion and neck supple. Skin: General: Skin is warm and dry. Capillary Refill: Capillary refill takes less than 2 seconds. Neurological: General: No focal deficit present. Mental Status: He is alert and oriented to person, place, and time. Psychiatric: Mood and Affect: Mood normal. Behavior: Behavior normal. Thought Content: Thought content normal. Judgment: Judgment normal. Assessment and Plan Unremarkable physical exam findings as noted above. Chest x-ray is negative for acute findings as reported by the radiologist. Patient was provided with prescriptions for prednisone 20 mg and Tessalon 100 mg. Supportive care instructions were discussed and the patient verbalizes excellent understanding of same. CLINICAL IMPRESSION: Acute Bronchitis Allergies As of Date: 07/22/2024 Noted Allergy Reaction DARVOCET A500 (PROPOXYPHENE N-DENNIS*07/23/2007 Comments: itch HYDROCODONE BITARTRATE 05/19/2015 9 - Itching Date Reviewed: 07/22/2024 Reviewed by: Renetta Loaiza LPN - Fully Assessed Reason for Visit: Cough [28] Cmt: Cough and chest congestion and PEACE x 4 days Primary Visit Diagnosis:Acute bronchitis, unspecified organism [J20.9] Order(s):XR CHEST 2V FRONTAL/LAT [[id number]] Order #: [id number] FUTURE predniSONE (DELTASONE) 20 mg tabletTake 1 tablet by mouth two times a day for 5 days.Disp: 10 tabletRfl: 0 benzonatate (TESSALON PERLE) 100 mg capsuleTake 1 capsule by mouth three times a day as needed for cough for up to 7 days.Disp: 21 capsuleRfl: 0 Prescriptions as of 07/22/2024 - predniSONE (DELTASONE) 20 mg tablet Take 1 tablet by mouth two times a day for 5 days. - benzonatate (TESSALON PERLE) 100 mg capsule Take 1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 He immediately had pain and burning, he rinsed with water at the scene, but he was in [place]. He waited until he got here in [place] before checking into the emergency department. Upon evaluation in triage, he was taken to the eyewash station and rinsed aggressively prior to my evaluation. He is having more discomfort in the left eye now than the right, along with a foreign body sensation there. Some blurry vision on the left right now but he feels like he can see pretty well out of the right. [facility] Medical History (Updated 04/04/22 @ 14:[address] Ward Mathur MD) GERD (gastroesophageal reflux disease) Obesity Medical History no medical history Home Medications clonazepam 1 mg tablet 1 tab PO BID 04/04/22 [History Last Taken Unknown] Allergy/AdvReac Type Severity Reaction Status Date / Time acetaminophen [From Vicodin] Allergy Itching Verified 04/04/22 12:00 hydrocodone bitartrate Allergy Itching Verified 04/04/22 12:00 [From Vicodin] Surgical History no surgical history Social History Smoking Status: Former smoker ROS ROS ED Constitutional Constitutional ED: Denies chills or fever(s) Eyes Eyes: Reports as per HPI, blurry vision left and eye pain ENT ENT ED: Denies ear pain, rhinorrhea or sore throat Neurologic Neurologic: Denies headache(s), paresthesias or weakness EXAM Physical Exam Const Vital Signs: 04/04/22 12:01 Temperature 97.1 F L Temperature Source Temporal Pulse Rate 108 H Respiratory Rate 18 Blood Pressure 154/90 H Blood Pressure Mean 111 Pulse Ox 97 Oxygen Delivery Method Room Air Positive well nourished and well developed General Appearance ED: well developed and NAD HEENT atraumatic; Negative for tenderness Mouth ED: Yes oral and palatal mucosa normal and Yes lips normal Mouth: oral and palatal mucosa normal and lips normal Eyes PERRL and EOMs intact bilaterally Eyes Narrative: Diffuse conjunctival injection bilaterally. Watering, no discharge. No chemosis. pH approximately 8 bilaterally prior to instilling any medications. Difficult exam due to blepharospasm/pain. Better after tetracaine. Lamp exam including with fluorescein staining and without, there is no dye uptake or focal lesion on the right cornea which appears normal, the anterior chamber is deep and quiet, there is no hyphema or hypopyon. On the left, the entire cornea is a little clouded but there is no cell or flare or focal dye uptake although there appears to be some areas of superficial sloughing. Neck supple Neck Narrative: FROM Neuro oriented x3, CN's II-XII intact bilaterally and gait normal Sensorium / Orientation: alert Skin Lesions: no lesions Rashes: no rashes MDM MDM MDM Narrative Medical decision making narrative: Patient was irrigated at the eyewash station, afterwards as documented, the pH is around 8.0 which was measured by myself with pH paper. He is feeling much better with tetracaine drops, however his left eye is more severely affected than the right, and there is evidence of corneal injury here. They brought the battery, it is a lead acid battery so indeed this was an acid injury rather than alkaline. Visual acuity is corrected: OD 20/25, OS 20/40, OU 20/25. We irrigated his left eye again with a Tarun lens 500 cc anyway. pH 7-8 on recheck. Discussed with ophthalmology on-call Dr. Mckeon, he has availability to see the patient today before they closed, we had secretary administrative assistant coordinate with theirs (more content not included)... Normal [facility] XR Chest PA and Lateralon IMPRESSION: Mild hazy opacity in the right midlung zone and left base is suspect for pneumonia in the appropriate clinical setting. Clinical correlation for viral pneumonia is advised. Aerodynamics Engineer: PSCB Transcribe Date/Time: Sep 06 2021 1:41P Dictated by : ASAD LEON MD This examination was interpreted and the report reviewed and electronically signed by: ASAD LEON MD on Sep 06 2021 1:42PM [facility] DIVISION OF RADIOLOGY * * *Final Report* * * DATE OF EXAM: Sep 06 2021 1:40PM WOX 5291 - XR CHEST 2V FRONTAL/LAT / PROCEDURE REASON: Cough * * * * Physician Interpretation * * * * EXAMINATION: CHEST RADIOGRAPH (2 VIEW FRONTAL & LATERAL) CLINICAL HISTORY: Cough MQ: XC2_6 EXAM DATE/TIME: 09/06/2021 1:40 PM COMPARISON: No relevant prior studies available. RESULT: Lines, tubes, and devices: None. Lungs and pleura: Mild hazy opacity in the right midlung zone and left base. No pleural effusion or pneumothorax. Cardiomediastinal silhouette: Normal cardiomediastinal silhouette. Bones and soft tissues: No acute abnormality. DIVISION OF RADIOLOGY Provider, [facility] - 09/06/2021 * * *Final Report* * * DATE OF EXAM: Sep 06 2021 1:40PM WOX 5291 - XR CHEST 2V FRONTAL/LAT / PROCEDURE REASON: Cough * * * * Physician Interpretation * * * * EXAMINATION: CHEST RADIOGRAPH (2 VIEW FRONTAL & LATERAL) CLINICAL HISTORY: Cough MQ: XC2_6 EXAM DATE/TIME: 09/06/2021 1:40 PM COMPARISON: No relevant prior studies available. RESULT: Lines, tubes, and devices: None. Lungs and pleura: Mild hazy opacity in the right midlung zone and left base. No pleural effusion or pneumothorax. Cardiomediastinal silhouette: Normal cardiomediastinal silhouette. Bones and soft tissues: No acute abnormality. IMPRESSION IMPRESSION: Mild hazy opacity in the right midlung zone and left base is suspect for pneumonia in the appropriate clinical setting. Clinical correlation for viral pneumonia is advised. Aerodynamics Engineer: PSCLiam Transcribe Date/Time: Sep 06 2021 1:41P Dictated by : ASAD LEON MD This examination was interpreted and the report reviewed and electronically signed by: ASAD LEON MD on Sep 06 2021 1:42PM EST [facility] Radiology Study observation (narrative) [facility] XR Chest PA and LateralOrder ed By: Cc Provider on 09-06-2021 [facility] Vital Signs Date Time Vital Sign Value Performing Clinician Facility 03-24-2025 10:54-0400 Body mass index (BMI) [Ratio] 46.97 kg/m2 Rogers Pisano MD Work Phone: [facility] 03-24-2025 10:54-0400 Body weight 132 kg Rogers Pisano MD Work Phone: [facility] 03-24-2025 10:54-0400 Diastolic blood pressure 101 mm[Hg] Rogers Pisano MD Work Phone: [facility] 03-24-2025 10:54-0400 Heart rate 99 /min Rogers Pisano MD Work Phone: [facility] 03-24-2025 10:54-0400 Respiratory rate 16 /min Rogers Pisano MD Work Phone: [facility] 03-24-2025 10:54-0400 SaO2% (BldA) [Mass fraction] 98 % Rogers Pisano MD Work Phone: [facility] 03-24-2025 10:54-0400 Systolic blood pressure 148 mm[Hg] Rogers Pisano MD Work Phone: [facility] 09-08-2024 14:27-0500 Body mass index (BMI) [Ratio] 48.46 kg/m2 Martin Head MD Work Phone: [facility] 09-08-2024 14:27-0500 Body temperature 97.81 [degF] Martin Head MD Work Phone: [facility] 09-08-2024 14:27-0500 Body weight 136.2 kg Mratin Head MD Work Phone: [facility] 09-08-2024 14:27-0500 Diastolic blood pressure 84 mm[Hg] Martin Head MD Work Phone: [facility] 09-08-2024 14:27-0500 Heart rate 81 /min Martin Head MD Work Phone: [facility] 09-08-2024 14:27-0500 Respiratory rate 16 /min Martin Head MD Work Phone: [facility] 09-08-2024 14:27-0500 SaO2% (BldA) [Mass fraction] 97 % Martin Head MD Work Phone: [facility] 09-08-2024 14:27-0500 Systolic blood pressure 130 mm[Hg] Martin Head MD Work Phone: [facility] 07-22-2024 12:20-0500 Body mass index (BMI) [Ratio] 47.75 kg/m2 Willa Clutter PA-C Work Phone: [facility] 07-22-2024 12:20-0500 Body temperature 98.2 [degF] Willa Clutter PA-C Work Phone: [facility] 07-22-2024 12:20-0500 Body weight 134.2 kg Willa Clutter PA-C Work Phone: [facility] 07-22-2024 12:20-0500 Diastolic blood pressure 78 mm[Hg] Willa Clutter PA-C Work Phone: [facility] 07-22-2024 12:20-0500 Heart rate 99 /min Willa Clutter PA-C Work Phone: [facility] 07-22-2024 12:20-0500 Respiratory rate 16 /min Willa Clutter PA-C Work Phone: [facility] 07-22-2024 12:20-0500 SaO2% (BldA) [Mass fraction] 97 % Willa Clutter PA-C Work Phone: [facility] 07-22-2024 12:20-0500 Systolic blood pressure 122 mm[Hg] Willa Clutter PA-C Work Phone: [facility] 10-08-2023 12:00-0500 Diastolic blood pressure 97 mm[Hg] Suri Schultz MD Work Phone: [facility] 10-08-2023 12:00-0500 Heart rate 74 /min Suri Schultz MD Work Phone: [facility] 10-08-2023 12:00-0500 Respiratory rate 22 /min Suri Schultz MD Work Phone: [facility] 10-08-2023 12:00-0500 SaO2% (BldA) [Mass fraction] 97 % Suri Schultz MD Work Phone: [facility] 10-08-2023 12:00-0500 Systolic blood pressure 158 mm[Hg] Suri Schultz MD Work Phone: [facility] 10-08-2023 11:33-0500 Body temperature 98.2 [degF] Suri Schultz MD Work Phone: [facility] 02-20-2023 08:00-0400 Body height 167.6 cm Rogers Pisano MD Work Phone: [facility] 02-20-2023 08:00-0400 Body temperature 98.01 [degF] Rogers Pisano MD Work Phone: [facility] 02-20-2023 08:00-0400 Body weight 125.65 kg Rogers Pisano MD Work Phone: [facility] 02-20-2023 08:00-0400 Diastolic blood pressure 86 mm[Hg] Rogers Pisano MD Work Phone: [facility] 02-20-2023 08:00-0400 Heart rate 86 /min Rogers Pisano MD Work Phone: [facility] 02-20-2023 08:00-0400 Respiratory rate 14 /min Rogers Pisano MD Work Phone: [facility] 02-20-2023 08:00-0400 SaO2% (BldA) [Mass fraction] 98 % Rogers Pisano MD Work Phone: [facility] 02-20-2023 08:00-0400 Systolic blood pressure 136 mm[Hg] Rogers Pisano MD Work Phone: [facility] 01-05-2023 15:20-0400 Body height 167.6 cm Rogers Pisano MD Work Phone: [facility] 01-05-2023 15:20-0400 Body temperature 98.29 [degF] Rogers Pisano MD Work Phone: [facility] 01-05-2023 15:20-0400 Body weight 122.92 kg Rogers Pisano MD Work Phone: [facility] 01-05-2023 15:20-0400 Diastolic blood pressure 70 mm[Hg] Rogers Pisano MD Work Phone: [facility] 01-05-2023 15:20-0400 Heart rate 95 /min Rogers Pisano MD Work Phone: [facility] 01-05-2023 15:20-0400 Respiratory rate 14 /min Rogers Pisano MD Work Phone: [facility] 01-05-2023 15:20-0400 SaO2% (BldA) [Mass fraction] 97 % Rogers Pisano MD Work Phone: [facility] 01-05-2023 15:20-0400 Systolic blood pressure 124 mm[Hg] Rogers Pisano MD Work Phone: [facility] 09-29-2022 09:02-0500 Body height 167.6 cm Rogers Pisano MD Work Phone: [facility] 09-29-2022 09:02-0500 Body temperature 98.49 [degF] Rogers Pisano MD Work Phone: [facility] 09-29-2022 09:02-0500 Body weight 125.19 kg Rogers Pisano MD Work Phone: [facility] 09-29-2022 09:02-0500 Diastolic blood pressure 76 mm[Hg] Rogers Pisano MD Work Phone: [facility] 09-29-2022 09:02-0500 Heart rate 82 /min Rogers Pisano MD Work Phone: [facility] 09-29-2022 09:02-0500 Respiratory rate 14 /min Rogers Pisano MD Work Phone: [facility] 09-29-2022 09:02-0500 SaO2% (BldA) [Mass fraction] 98 % Rogers Pisano MD Work Phone: [facility] 09-29-2022 09:02-0500 Systolic blood pressure 134 mm[Hg] Rogers Pisano MD Work Phone: [facility] 06-26-2022 09:06-0400 Body temperature 97.5 [degF] Berta Bogner PA-C Work Phone: [facility] 06-26-2022 09:06-0400 Body weight 126.55 kg Berta Bogner PA-C Work Phone: [facility] 06-26-2022 09:06-0400 Diastolic blood pressure 80 mm[Hg] Berta Bogner PA-C Work Phone: [facility] 06-26-2022 09:06-0400 Heart rate 86 /min Berta Bogner PA-C Work Phone: [facility] 06-26-2022 09:06-0400 Respiratory rate 16 /min Berta Bogner PA-C Work Phone: [facility] 06-26-2022 09:06-0400 SaO2% (BldA) [Mass fraction] 98 % Berta Bogner PA-C Work Phone: [facility] 06-26-2022 09:06-0400 Systolic blood pressure 124 mm[Hg] Berta Bogner PA-C Work Phone: [facility] 04-04-2022 14:46-0400 Diastolic blood pressure 84 mm[Hg] [facility] Work Phone: 04-04-2022 14:46-0400 Heart rate 100 /min [facility] Work Phone: 04-04-2022 14:46-0400 Respiratory rate 19 /min [facility] Work Phone: 04-04-2022 14:46-0400 SaO2% (BldA) [Mass fraction] 99 % [facility] Work Phone: 04-04-2022 14:46-0400 Systolic blood pressure 140 mm[Hg] [facility] Work Phone: 04-04-2022 12:01-0400 Body height 165.1 cm [facility] Work Phone: 04-04-2022 12:01-0400 Body mass index (BMI) [Ratio] 45.6 kg/m2 [facility] Work Phone: 04-04-2022 12:01-0400 Body temperature 97.1 [degF] [facility] Work Phone: 04-04-2022 12:01-0400 Body weight 124.2 kg [facility] Work Phone: Encounters Encounter Date Encounter Type Care Provider Facility Start: 03-25-2025 End: 03-27-2025 Telephone encounter Rogers Pisano MD Work Phone: [facility] [place] Comment on above: Insurance Authorizat ion Start: 03-24-2025 End: 03-24-2025 ambulatory [facility] Facility:[facility] Start: 03-24-2025 End: 03-24-2025 Periodic preventive med est patient 40-64yrs Rogers Pisano MD Work Phone: [facility] [place] Comment on above: Annual physical exam (Primary Dx); Obstructive sleep apnea syndrome; Obesity, Class III, BMI 40-49.9 (morbid obesity) ([facility]); Screening for depression; Encounter for screening examination for other mental health and behavioral disorders; Restless legs syndrome; Essential tremor Start: 03-24-2025 End: 03-24-2025 ambulatory [facility] Facility:[facility] Start: 03-24-2025 End: 03-24-2025 Patient encounter procedure Rogers Pisano MD Work Phone: [facility] Start: 09-08-2024 End: 09-08-2024 [facility] Facility:[facility] Start: 09-08-2024 End: 09-08-2024 Office outpatient visit 25 minutes Martin Head MD Work Phone: [facility] Comment on above: Acute otitis media, left (Primary Dx); Acute non-recurrent sinusitis, unspecified location Start: 08-20-2024 End: 08-21-2024 Refill Bryan Rojas MD Work Phone: Neurology Comment on above: Refill Request Start: 07-22-2024 End: 07-22-2024 Subsequent hospital visit by physician Jessica [facility] [place] Work Phone: Radiology Comment on above: Acute bronchitis, un specified organism [J20.9] Start: 07-22-2024 End: 07-22-2024 ambulatory ROGERS PISANO Facility:[facility] Start: 07-22-2024 End: 07-22-2024 Office outpatient new 30 minutes Willa Perkins PA-C Work Phone: [facility] Comment on above: Acute bronchitis, un specified organism (Primary Dx) Start: 11-01-2023 Refill Bryan Stevenson ph, MD Work Phone: Neurology Comment on above: Refill Request Start: 10-09-2023 Telephone encounter Suri Lambert MD Work Phone: General Surgery Comment on above: Results Start: 10-08-2023 ambulatory BRYAN Dyer ty:[facility] Start: 10-08-2023 End: 10-08-2023 Subsequent hospital visit by physician Suri Schultz MD Work Phone: [facility] Comment on above: Rectal bleeding [K62 .5] Start: 09-07-2023 End: 07-08-2024 Telephone encounter Marisa Gates PA-C Work Phone: General Surgery Comment on above: 10/08/2023 COLON DIAGN OSTIC EXCELSIOR Start: 04-23-2023 Refill Bryan Stevenson ph, MD Work Phone: Neurology Comment on above: Refill Request Start: 02-21-2023 End: 02-21-2023 ambulatory Lowell Mccabe [facility] Physical Therapy Comment on above: Lumbosacral radiculo evangelist (Primary Dx); Acute back pain with sciatica, right Start: 02-20-2023 End: 02-20-2023 Patient encounter procedure Rogers Pisano MD Work Phone: [facility] [place] Comment on above: Foot drop, right (Pr imary Dx); Numbness of right foot; Lumbar radiculopathy; Insomnia, unspecified type; Decreased sensation of leg Start: 02-06-2023 Telephone encounter Rogers mckeon MD Work Phone: [facility] [place] Comment on above: Patient Update Start: 01-26-2023 End: 01-26-2023 Subsequent hospital visit by physician Jessica [facility] [place] [facility] Work Phone: Radiology Comment on above: Lumbosacral radiculo evangelist at S1 [M54.17] Swelling of limb [M7 9.89] Start: 01-05-2023 End: 01-05-2023 Patient encounter procedure Rogers Pisano MD Work Phone: [facility] [place] Comment on above: Lumbar sprain, initi al encounter (Primary Dx); Bilateral low back pain with right-sided sciatica, unspecified chronicity Start: 10-17-2022 End: 10-17-2022 ambulatory Rogers Pisano MD Work Phone: [facility] [place] Comment on above: Diarrhea, unspecifie d type (Primary Dx) Start: 10-17-2022 End: 10-17-2022 Telemedicine consultation with patient Rogers Pisano MD Work Phone: [facility] [place] Start: 09-29-2022 End: 09-29-2022 Patient encounter procedure Rogers Pisano MD Work Phone: [facility] [place] Comment on above: Tremor (Primary Dx); Tics of organic origin; Morbid obesity with BMI of 40.0-44.9, adult (HCC); Encounter for screening for diabetes mellitus; Lipid screening Start: 09-15-2022 Refill Bryan Stevenson ph, MD Work Phone: Neurology Comment on above: Refill Request Start: 08-16-2022 End: 08-16-2022 ambulatory Rogers Pisano MD Work Phone: [facility] [place] Comment on above: COVID-19 virus infec tion (Primary Dx) Start: 08-16-2022 End: 08-16-2022 Telemedicine consultation with patient Rogers Pisano MD Work Phone: [facility] [place] Start: 08-15-2022 Telephone encounter Rogers mckeon MD Work Phone: [facility] [place] Comment on above: Covid Positive Start: 08-09-2022 Refill Rogers Hennessy Work Phone: [address] [place] [address] Comment on above: Refill Request Start: 06-26-2022 End: 06-26-2022 Patient encounter procedure Berta Shea PA-C Work Phone: [facility] Comment on above: Allergic contact jez matitis, unspecified trigger (Primary Dx) Start: 04-04-2022 End: 04-04-2022 Emergency department patient visit [facility] Start: 03-09-2022 Refill Bryan Stevenson ph, MD Work Phone: Neurology Comment on above: Refill Request Start: 09-06-2021 End: 09-06-2021 Subsequent hospital visit by physician Xr [facility] Work Phone: Radiology Comment on above: Cough [R05.9] Procedures Date Procedure Procedure Detail Performing Clinician Start: 03-24-2025 Adult depression scr eening assessment Rogers Pisano MD Work Phone: Start: 07-22-2024 Radiologic exam ches t 2 views Willa Perkins PA-C Work Phone: Start: 10-08-2023 Colonoscopy flx dx w /collj spec when pfrmd Marisa Gates PATracieC Work Phone: Start: 10-08-2023 Colonoscopy Suri Schultz MD Work Phone: Start: 07-17-2023 Lipid 1996 panel - S manuel or Plasma Suri Schultz MD Work Phone: Start: 01-26-2023 Radex spine lumbosac ral 2/3 views Rogers Pisano MD Work Phone: Start: 01-26-2023 Dup-scan xtr veins unilateral/limited study Rogers Pisano MD Work Phone: Start: 08-15-2022 2019 CORONAVIRUS [facility] Start: 09-06-2021 Radiologic exam ches t 2 views Zena Davis PHOTOGRAPHY INSTRUCTOR.NUTRITION COUNSELOR Work Phone: Start: 04-04-2021 Adult depression scr eening assessment Bryan Rojas MD Work Phone: Start: 10-30-2014 Lipid 1996 panel - S manuel or Plasma [employer] Work Phone: Plan of Treatment Date Care Activity Detail Author Start: 10-08-2028 Screening for malign ant neoplasm of colon [facility] Start: 07-17-2028 Lipid panel Lipid Screening [facility] Start: 03-24-2028 Diabetes Screening Diabetes Screenin g [facility] Start: 07-17-2026 Diabetes Screening Diabetes Screenin g [facility] Start: 03-24-2026 Anxiety Screening Anxiety Screening [facility] Start: 03-24-2026 Depression Screening Depression Scre ening [facility] Start: 03-24-2026 Hepatitis B Vaccine (1 of 3 - 19+ 3-dose series) Hepatitis B Vaccine (1 of 3 - 19+ 3-dose series) [facility] Comment on above: Postponed from 09/20 (Declined at this time) Start: 03-24-2026 Pneumococcal Vaccine : 50+ (1 of 1 - PCV) Pneumococcal Vaccine: 50+ (1 of 1 - PCV) [facility] Comment on above: Postponed from 09/20 (Declined at this time) Start: 03-24-2026 Shingrix Vaccine (1 of 2) Shingrix Vaccine (1 of 2) [facility] Comment on above: Postponed from 09/20 (Declined at this time) Start: 03-24-2026 Urine microalbumin profile DTaP,Tdap,Td Vaccine (1 - Tdap) [facility] Comment on above: Postponed from 09/20 (Declined at this time) Start: 06-24-2025 End: 06-24-2025 Patient encounter procedure 06/24/2025 7:00 AM EDT Office Visit [facility] [address] [place], [place] [id number] Gabrielle Ken APRN.NUTRITION COUNSELOR [address] [place] [address] ms [facility] [place] Comment on above: ms Start: 05-04-2025 Influenza vaccination Influenza Vacc ine (#1) [facility] Start: 10-23-2024 End: 10-23-2024 Patient encounter procedure 10/23/2024 10:30 AM EST Office Visit [facility] [address] [place] [address] Bryan Rojas MD [address] [place] [address] do not have enough meds to make it until appt time [facility] Comment on above: do not have enough m eds to make it until appt time Start: 10-20-2024 End: 10-20-2024 Distance Health 10/20/2024 4:00 PM EST Distance [facility] [address] [place] [address] Bryan Rojas MD [address] [place] [address] not taking as much as prescribed need a refill [facility] Comment on above: not taking as much a s prescribed need a refill Start: 10-08-2024 Screening for malign ant neoplasm of colon [facility] Start: 05-04-2024 Covid-19 Vaccine ( season) Covid-19 Vaccine () [facility] Start: 05-04-2024 Influenza vaccination Influenza Vacc ine (#1) [facility] Start: 02-15-2024 [facility]ABET[facility]EN [facility] Start: 02-15-2024 Diabetes Screening Diabetes Screenin g [facility] Start: 09-03-2023 Depression Assessment Depression Ass essment [facility] Start: 05-04-2023 Covid-19 Vaccine ( season) Covid-19 Vaccine ( season) [facility] Start: 05-04-2023 Influenza vaccination [facility] Start: 09-29-2022 End: 03-29-2023 CBC W Auto Differential panel - Blood CBC + DIFF Lab Routine Lipid screening Expected: 09/29/2022, Expires: 11/29/2022 [facility] Work Phone: Comment on above: Expected: 09/29/2022 , Expires: 11/29/2022 Start: 09-29-2022 End: 11-29-2022 Comprehensive metabolic 2000 panel - Serum or Plasma COMP METABOLIC PANEL Lab Routine Lipid screening Expected: 09/29/2022, Expires: 11/29/2022 [facility] Work Phone: Comment on above: Expected: 09/29/2022 , Expires: 11/29/2022 Start: 09-29-2022 End: 11-29-2022 Hemoglobin A1c in Blood HGB A1C Lab Routine Encounter for screening for diabetes mellitus Expected: 09/29/2022, Expires: 11/29/2022 [facility] Work Phone: Comment on above: Expected: 09/29/2022 , Expires: 11/29/2022 Start: 09-29-2022 End: 11-29-2022 Lipid 1996 panel - Serum or Plasma LIPID PANEL BASIC Lab Routine Lipid screening Expected: 09/29/2022, Expires: 11/29/2022 [facility] Work Phone: Comment on above: Expected: 09/29/2022 , Expires: 11/29/2022 Start: 09-29-2022 End: 11-29-2022 Thyrotropin [Units/volume] in Serum or Plasma TSH BLD Lab Routine Tremor Expected: 09/29/2022, Expires: 11/29/2022 [facility] Work Phone: Comment on above: Expected: 09/29/2022 , Expires: 11/29/2022 Start: 09-03-2022 DEPRESSION ASSESSMENT DEPRESSION ASS ESSMENT [facility] Start: 05-04-2022 Influenza vaccination INFLUENZA (#1) [facility] Start: 04-04-2022 Adult depression screening assessment DEPRESSION SCREENING [facility] Start: 11-08-2021 COVID-19 VACCINE (3 - Booster for Moderna series) COVID-19 VACCINE (3 - Booster for Moderna series) [facility] Start: 2021 Pneumococcal Vaccine : 50+ (1 of 1 - PCV) Pneumococcal Vaccine: 50+ (1 of 1 - PCV) [facility] Start: 2021 SHINGRIX VACCINE (1 of 2) SHINGRIX VACCINE (1 of 2) [facility] Start: 09-03-2021 DEPRESSION ASSESSMENT DEPRESSION ASS ESSMENT [facility] Start: 08-05-2021 COVID-19 VACCINE (3 - Booster for Moderna series) COVID-19 VACCINE (3 - Booster for Moderna series) [facility] Start: 08-05-2021 COVID-19 VACCINE (3 - Moderna series) COVID-19 VACCINE (3 - Moderna series) [facility] Start: 10-30-2019 Lipid 1996 panel - Serum or Plasma Lipid Screening [facility] Start: 10-30-2019 LIPID SCREEN LIPID SCREEN [facility] Start: 2016 COLOGUARD (FIT-DNA) COLOGUARD (FIT-D NA) [facility] Start: 2016 Colonoscopy COLONOSCOPY [facility] Start: 2016 COLORECTAL CANCER SCREENING COLORECTAL CANCER SCREENING [facility] Start: [address] COLONOGRAPHY [facility] Start: 2016 FECAL OCCULT BLOOD FECAL OCCULT BLOO D [facility] Start: 2016 Screening for malign ant neoplasm of colon [facility] Start: 2016 SIGMOIDOSCOPY SIGMOIDOSCOPY [facility] Start: 1990 Hepatitis B Vaccine (1 of 3 - 19+ 3-dose series) Hepatitis B Vaccine (1 of 3 - 19+ 3-dose series) [facility] Start: 1990 Urine microalbumin profile [facility] Start: 1989 Anxiety Screening Anxiety Screening [facility] Start: 1989 Depression Screening Depression Scre ening [facility] Start: 1989 HEPATITIS C SCREENING HEPATITIS C SC REENING [facility] Start: 1989 HIV SCREENING HIV SCREENING [facility] Start: 1971 HEPATITIS B (1 of 3 - 3-dose series) HEPATITIS B (1 of 3 - 3-dose series) [facility] Start: 1971 Hepatitis B Vaccine (1 of 3 - 3-dose series) Hepatitis B Vaccine (1 of 3 - 3-dose series) [facility] Patient Education Corneal Injury [facility] Work Phone: Patient referral [facility] Work Phone: PT PLAN OF CARE CERTIFICATION PT PLAN OF CARE CERTIFICATION Procedures Routine Lumbosacral radiculopathy Acute back pain with sciatica, right Ordered: 02/21/2023 [facility] Comment on above: Ordered: 02/21/2023 SURGICAL PATHOLOGY [facility] Work Phone: Comment on above: Release Upon Orderin g for 1 Occurrences starting 10/08/2023, 1 completed [facility] Immunizations Immunization Date Immunization Notes Care Provider Chantale martinez 10-22-2018 influenza virus vaccine, unspecified formulation [employer] Work Phone: [facility] NEGATED: Highlighted row has not occurred!07-17-2023 zoster vaccine recombinant Suri Schultz MD Work Phone: [facility] Work Phone: Comment on above: Deferred: Postponed Payers Date Payer Category Payer Private Health Insurance [employer] [id number] 2024 Unknown [employer] [id number] 2024-Present [phone] [place] [id number] PPO [id number] 2024 Unknown [id number] 2022 Medicaid [id number] 2021 Medicaid [employer] [id number] 2021-Present [phone] [address] [place] [address] Medicaid [id number] 2021 Medicaid [id number] 2016 Unknown SELF PAY INSURANCE [id number] Self-pay SELF PAY INSURANCE [id number] Social History Date Type Detail Facility Start: 10-23-2014 End: 07-22-2024 Tobacco smoking status HIIS Ex-smoker [facility] Work Phone: End: 09-22-2014 History of tobacco use Current smoker [facility] Work Phone: End: 09-22-2014 History of tobacco use Cigarette Smoker [facility] Work Phone: Start: 10-23-2014 End: 07-22-2024 Tobacco use and exposure Smokeless tobacco non-user [facility] Work Phone: Start: 09-06-2021 End: 09-07-2023 Alcohol intake Current non-drinker of alcohol (finding) [facility] Start: 1970 Sex Assigned At Not on file [facility] Start: 04-04-2022 Tobacco smoking status HIIS Unknown if ever smoked [facility] Work Phone: Start: 06-14-[address] [facility] Work Phone: Start: 06-14-2020 Spouse/ Significant Other [facility] Work Phone: Start: 1970 Sex Ass[address] Male [facility] Work Phone: Start: 08-07-2021 End: 06-26-2022 Exposure to SARS-CoV-2 (event) Not sure [facility] Work Phone: Start: 08-16-2022 History SDOH Alcohol Frequency 3 [facility] Start: 08-16-2022 History SDOH Alcohol Std Drinks 1 [facility] Start: 08-16-2022 History SDOH Social Connections Phone 98 [facility] Start: 08-16-2022 History SDOH Financial 5 [facility] Start: 08-16-2022 History SDOH Transport Med 2 [facility] Start: 08-16-2022 End: 01-05-2023 History of Social function [facility] Start: 08-16-2022 End: 01-05-2023 Social connection and isolation panel [facility] In a typical week, h ow many times do you talk on the telephone with family, friends, or neighbors? Patient refused [facility] Are you now , , , , never or living with a partner? [facility] How often to you hav e a drink containing alcohol? 2-4 times a month [facility] How many standard dr inks containing alcohol do you have on a typical day? 1 or 2 [facility] How often do you hav e 6 or more drinks on 1 occasion? Never [facility] Do you feel stress - tense, restless, nervous, or anxious, or unable to sleep at night because your mind is troubled all the time - these days [OSQ] Not at all [facility] (I/We) worried kym er (my/our) food would run out before (I/we) got money to buy more. Never true [facility] In the past 12 month s, was there a time when you were not able to pay the mortgage or rent on time? No [facility] Start: 09-24-2023 End: 03-24-2025 Alcohol intake Current drinker of alcohol (finding) [facility] Start: 09-24-2023 Tobacco Comment Light use - 1/2 pp 2 weeks [facility] Start: 09-24-2023 Alcohol Comment 1 beer a couple times per week [facility] Do you belong to any clubs or organizations such as zoroastrian groups, unions, fraternal or athletic groups, or school groups? Yes [facility] How often do you hav e 6 or more drinks on 1 occasion? Less than monthly [facility] Do you feel stress - tense, restless, nervous, or anxious, or unable to sleep at night because your mind is troubled all the time - these days [OSQ] Only a little [facility] Functional Status Date Assessment Result Facility 02-23-2015 Are you deaf, or do you have serious difficulty hearing No 02/23/2015 8:27 AM EDT Xiomy Fofana LPN No [facility] 02-23-2015 Are you blind, or do you have serious difficulty seeing, even when wearing glasses No 02/23/2015 8:27 AM JOSET Xiomy Fofana LPN No [facility] 02-23-2015 Do you have serious difficulty walking or climbing stairs No 02/23/2015 8:27 AM EDT Xiomy Fofana LPN No [facility] 02-23-2015 Do you have difficul ty dressing or bathing No 02/23/2015 8:27 AM EDT Xiomy Fofana LPN No [facility] 02-23-2015 Because of a physica l, mental, or emotional condition, do you have difficulty doing errands alone such as visiting a physician's office or shopping No 02/23/2015 8:27 AM EDT Xiomy Fofana LPN No [facility] Mental Status Date Assessment Result Facility 02-23-2015 Because of a physica l, mental, or emotional condition, do you have serious difficulty concentrating, remembering, or making decisions No 02/23/2015 8:27 AM EDT Xiomy Fofana LPN No [facility] Clinical Notes 10-23-2014 to 03-25-2025 Telephone Encounter - Iliana Richardson LPN - 03/25/2025 4:21 PM EDTTelephone Encounter - Iliana Richardson LPN - 03/25/2025 4:21 PM EDTPatient Rogers Olivera MD - 03/24/2025 11:59 AM EDT Note Date & Type Note Facility 03-25-2025 Telephone encounter Note PA fax rec'd from [facility] for ozempic. Pt is not diabetic. Ozempic is covered for pts who have diabetes. [facility] 03-25-2025 Miscellaneous Notes PA fax rec'd from [facility] for ozempic. Pt is not diabetic. Ozempic is covered for pts who have diabetes. documented in this encounter [facility] 03-24-2025 Instructions Rogers Pisano MD - 03/24/2025 12:01 PM EDT We discussed your weight management and overall health: - I prescribed semaglutide (the active ingredient in Wegovy) to help with weight loss. This has been sent to your pharmacy. Start with the smallest dose (0.25 mg) for six weeks. Please monitor for side effects such as nausea, which is common but typically manageable. If you experience significant side effects or do not see progress, we can adjust the dose or explore other options like Mounjaro. - Before purchasing the medication, check the cost and let me know via Smeet. If semaglutide is too expensive, we can explore alternatives, including Wegovy or compounded options. - Weight loss may take time, and you may need to stay on the medication for several years to maintain results. Be patient as we work to find the most effective and sustainable plan for you. - Continue your current healthy eating habits, including 50 grams of protein daily, and maintain your meal prep routine. This is excellent for supporting your weight loss journey. - Incorporate strength training exercises to preserve muscle mass as you lose weight. Building muscle will also help improve your metabolism. We discussed your sleep and stress management: - You reported improved sleep quality and reduced insomnia since starting THC for your internal tremors and restless leg syndrome. While this has been beneficial for your sleep, it does not address your sleep apnea. Please continue to monitor your symptoms. - You are managing stress well despite a busy work schedule. Continue your current strategies, including staying active and maintaining a healthy work-life balance. We discussed your blood work: - I ordered basic labs, including a CBC and BMP, to check your kidney function, hemoglobin, and other rojas markers. These are simpler tests to minimize costs while still monitoring your health. We will hold off on cholesterol testing until you are further along in your weight loss journey. We discussed vaccinations: - You declined the pneumonia vaccine today. If you change your mind, we can administer it at a future visit. Next steps: - Please notify me via Smeet about the cost of semaglutide before purchasing it. - Follow up with me if you experience any side effects or have questions about your medication or weight loss plan. - Schedule a follow-up appointment as needed to monitor your progress and adjust your treatment plan. documented in this encounter [facility] 03-24-2025 Note HNO ID: [id number] Author: ROGERS PISANO MD Service: ? Author Type: Physician Type: Progress Notes Filed: 03/24/2025 19:09 Note Text: Reason for Visit Annual physical HPI Jatin Meza is a 54-year-old male with a history of internal tremors, sleep apnea, and obesity, presenting for weight management and discussion of current treatments. Jatin reports a longstanding history of internal tremors, which he describes as constant but manageable. He has been using medical marijuana for approximately one year to alleviate these tremors and associated symptoms, including restless leg syndrome and sleep disturbances. He obtained a medical marijuana card and has been using less than half of the prescribed dose to avoid psychoactive effects. He reports significant improvement in his tremors, sleep quality, and overall stress management since starting this treatment. He denies any negative side effects from the medical marijuana and notes that it has not affected his appetite or eating habits. Jatin also reports difficulty with weight loss despite maintaining a clean diet and being physically active. He attributes his weight gain to his demanding work schedule, which involves extensive travel and physical labor. He reports consuming 50 grams of protein daily, drinking water, and avoiding soda and juices. He also notes that his prepares meals for him to avoid eating out while traveling. Despite these efforts, he finds it challenging to lose weight and expresses interest in exploring medical options for weight management. He specifically inquires about the use of semaglutide (Wegovy) for weight loss, citing positive results observed in a family member. Jatin has a history of sleep apnea but reports significant improvement in his sleep quality since starting medical marijuana. He sleeps on his right side and gets approximately six hours of sleep per night, waking up feeling refreshed and ready for the day. He denies using a CPAP machine and reports no current issues with insomnia or restless leg syndrome. Jatin expresses a strong desire to lose weight for health reasons and to improve his quality of life. He reports that his current weight makes it difficult to perform certain activities, such as putting on socks, and causes achiness in his legs, particularly the left one. He is motivated to pursue weight loss to improve his overall health and longevity, as well as to be more active and present for his family and work responsibilities. Social History Tobacco Use Smoking status: Former Current packs/day: 0.00 Types: Cigarettes Quit date: 09/22/2014 Years since quittin.5 Smokeless tobacco: Never Tobacco comments: Light use - 1/2 pp 2 weeks Vaping Use Vaping status: Never Used Substance Use Topics Alcohol use: Yes Comment: 1 beer a couple times per week Drug use: Yes Frequency: 7.0 times per week Types: Marijuana Comment: uses for involuntary body movements, h/o meth and pill abuse - clean since 2010 Past medical history, appointments, medications, allergies reviewed. Pertinent Lab/Diagnostic Studies are reviewed and discussed today Current Outpatient Medications: omeprazole (PRILOSEC) 20 mg capsule sildenafil (VIAGRA) 50 mg tablet semaglutide (OZEMPIC) 0.25 mg or 0.5 mg (2 mg/3 mL) pen clonazePAM (KLONOPIN) 1 mg tablet cholecalciferol (VITAMIN D3) 1,000 unit tab tablet Health Maintenance There are no preventive care reminders to display for this patient.@ Review Of Systems Constitutional: (-) insomnia Ears/Nose/Mouth/Throat: (+) snoring Musculoskeletal: (+) bilateral leg pain, (-) hip pain Neurological: (+) tremor, (+) head jerking, (-) restless legs Psychiatric: (+) increased stress, (-) depressed mood Physical Exam BP 148/101 Pulse 99 Resp 16 Wt 132 kg (291 lb) SpO2 98% BMI 46.97 kg/m? GENERAL: NAD, alert and oriented. SKIN: Unremarkable, no rash or skin lesions. HEAD: Normocephalic. LUNGS: Clear to auscultation bilaterally, no wheezes/rhonchi/rales. HEART: Regular rate and rhythm, no murmurs. No ectopy. EXTREMITIES: Normal, no deformities, no skin discoloration, no edema. NEURO: Awake, alert and oriented x3, cranial nerves II-XII grossly intact, normal gait, no involuntary motions. Assessment and Plan 1. Annual physical exam (Z00.00) Patient is due for an annual physical exam. - Conducted a comprehensive physical examination. - Ordered CBC and BMP to assess renal function and hemoglobin levels. - Discussed the importance of regular health maintenance and screenings. 2. Obstructive sleep apnea syndrome (G47.33) Patient reports improved sleep quality and reduced snoring since using THC. Currently not using CPAP machine. - Discussed the importance of CPAP therapy for managing JOSE. - Monitor symptoms and consider re-evaluation if necessary. 3. Obesity, Class III, BMI 40-49.9 (morbid obesity) ([facility]) (E66.813) Patient (more content not included)... [facility] 03-24-2025 History of Presen t illness Narrative Reason for Visit Annual physical HPI Jatin Meza is a 54-year-old male with a history of internal tremors, sleep apnea, and obesity, presenting for weight management and discussion of current treatments. Jatin reports a longstanding history of internal tremors, which he describes as constant but manageable. He has been using medical marijuana for approximately one year to alleviate these tremors and associated symptoms, including restless leg syndrome and sleep disturbances. He obtained a medical marijuana card and has been using less than half of the prescribed dose to avoid psychoactive effects. He reports significant improvement in his tremors, sleep quality, and overall stress management since starting this treatment. He denies any negative side effects from the medical marijuana and notes that it has not affected his appetite or eating habits. Jatin also reports difficulty with weight loss despite maintaining a clean diet and being physically active. He attributes his weight gain to his demanding work schedule, which involves extensive travel and physical labor. He reports consuming 50 grams of protein daily, drinking water, and avoiding soda and juices. He also notes that his prepares meals for him to avoid eating out while traveling. Despite these efforts, he finds it challenging to lose weight and expresses interest in exploring medical options for weight management. He specifically inquires about the use of semaglutide (Wegovy) for weight loss, citing positive results observed in a family member. Jatin has a history of sleep apnea but reports significant improvement in his sleep quality since starting medical marijuana. He sleeps on his right side and gets approximately six hours of sleep per night, waking up feeling refreshed and ready for the day. He denies using a CPAP machine and reports no current issues with insomnia or restless leg syndrome. Jatin expresses a strong desire to lose weight for health reasons and to improve his quality of life. He reports that his current weight makes it difficult to perform certain activities, such as putting on socks, and causes achiness in his legs, particularly the left one. He is motivated to pursue weight loss to improve his overall health and longevity, as well as to be more active and present for his family and work responsibilities. Social History Tobacco Use Smoking status: Former Current packs/day: 0.00 Types: Cigarettes Quit date: 09/22/2014 Years since quittin.5 Smokeless tobacco: Never Tobacco comments: Light use - 1/2 pp 2 weeks Vaping Use Vaping status: Never Used Substance Use Topics Alcohol use: Yes Comment: 1 beer a couple times per week Drug use: Yes Frequency: 7.0 times per week Types: Marijuana Comment: uses for involuntary body movements, h/o meth and pill abuse - clean since 2010 Past medical history, appointments, medications, allergies reviewed. Pertinent Lab/Diagnostic Studies are reviewed and discussed today Current Outpatient Medications: omeprazole (PRILOSEC) 20 mg capsule sildenafil (VIAGRA) 50 mg tablet semaglutide (OZEMPIC) 0.25 mg or 0.5 mg (2 mg/3 mL) pen clonazePAM (KLONOPIN) 1 mg tablet cholecalciferol (VITAMIN D3) 1,000 unit tab tablet Health Maintenance There are no preventive care reminders to display for this patient.@ Review Of Systems Constitutional: (-) insomnia Ears/Nose/Mouth/Throat: (+) snoring Musculoskeletal: (+) bilateral leg pain, (-) hip pain Neurological: (+) tremor, (+) head jerking, (-) restless legs Psychiatric: (+) increased stress, (-) depressed mood Physical Exam BP 148/101 Pulse 99 Resp 16 Wt 132 kg (291 lb) SpO2 98% BMI 46.97 kg/m GENERAL: NAD, alert and oriented. SKIN: Unremarkable, no rash or skin lesions. HEAD: Normocephalic. LUNGS: Clear to auscultation bilaterally, no wheezes/rhonchi/rales. HEART: Regular rate and rhythm, no murmurs. No ectopy. EXTREMITIES: Normal, no deformities, no skin discoloration, no edema. NEURO: Awake, alert and oriented x3, cranial nerves II-XII grossly intact, normal gait, no involuntary motions. Assessment and Plan 1. Annual physical exam (Z00.00) Patient is due for an annual physical exam. - Conducted a comprehensive physical examination. - Ordered CBC and BMP to assess renal function and hemoglobin levels. - Discussed the importance of regular health maintenance and screenings. 2. Obstructive sleep apnea syndrome (G47.33) Patient reports improved sleep quality and reduced snoring since using THC. Currently not using CPAP machine. - Discussed the importance of CPAP therapy for managing JOSE. - Monitor symptoms and consider re-evaluation if necessary. 3. Obesity, Class III, BMI 40-49.9 (morbid obesity) (HCC) (E66.813) Patient has a BMI indicating Class III obesity. Reports difficulty with physical activities and weight management despite a clean diet and active lifestyle. - Prescribed semaglutide, starting at 0.25 mg weekly, with gradual dose escalation based on tolerance and response. - Discussed potential side effects, including nausea and changes in appetite. - Educated patient on the importance of maintaining muscle mass during weight loss through increased protein intake and resistance exercises. - Monitor weight and adjust medication dosage as needed. 4. Screening for depression (Z13.31) Patient reports high stress levels due to work demands but denies any symptoms of depression. - Conducted a depression screening. - Discussed stress management techniques and the importance of mental health. 5. Encounter for screening examination for other mental health and behavioral disorders (Z13.39) Patient reports using THC for essential tremor and sleep improvement. No negative effects reported from THC use. - Discussed the potential benefits and risks of THC use. - Monitor for any changes in mental health or behavior. 6. Restless legs syndrome (G25.81) Patient reports significant improvement in restless legs syndrome symptoms since using THC. - Continue current management with THC. - Monitor symptoms and adjust treatment if necessary. 7. Essential tremor (G25.0) Patient reports internal tremors and involuntary movements. Has discontinued amlodipine and is using THC with positive effects on tremor control. - Continue current management with THC. - Monitor tremor severity and frequency. Voice recognition software was used to compose this office note. Please excuse any unintended typographical errors. Recording using ambient AI software for draft documentation of the visit was discussed with the patient/authorized inside outside sales representative; all questions welcomed and answered. Patient/authorized inside outside sales representative agreed to proceed Rogers Pisano MD documented in this encounter [facility] 09-08-2024 Note HNO ID: [id number] Author: MARTIN HEAD MD Service: ? Author Type: Physician Type: Progress Notes Filed: 09/08/2024 14:45 Note Text: Patient presents with: Ear Pain: Left ear pain, head congestion, right eye pressure x 1 week HPI: Feeling sick for 1 week with head congestion. Positive symptoms: left ear pain and decreased hearing, Sinus pressure Improved: right earache, Cough, Chest tightness, Nasal Congestion, Post nasal drainage, Chills, Negative symptoms: Fever, OTC: Sudafed, Lozenges, albuterol MEDICATIONS: Current Outpatient Medications Medication Sig clonazePAM (KLONOPIN) 1 mg tablet Take 1 tablet by mouth two times a day for 180 days. omeprazole (PRILOSEC) 20 mg capsule Take 1 capsule by mouth once daily. cholecalciferol (VITAMIN D3) 1,000 unit tab tablet Take 1 tablet by mouth once daily. sildenafil (VIAGRA) 50 mg tablet Take one to two pills as needed an hour prior to sexual activity. No current facility-administered medications for this visit. ALLERGIES: ALLERGIES Allergen Reactions Darvocet A500 [Prop* itch Hydrocodone Bitartr* Itching VITALS: BP 130/84 Pulse 81 Temp 36.6 ?C (97.8 ?F) (Tympanic) Resp 16 Wt (!) 136.2 kg (300 lb 4.3 oz) SpO2 97% BMI 48.46 kg/m? PHYSICAL EXAM: GEN: mildly ill appearing HEENT: PERRL, EOMI, conjunctiva clear Ears: canals clear. RTM without erythema or bulge, likely effusion. Left tympanic membrane with erythema, bulge, and effusion. Sinuses: tender frontal sinus, tender maxillary sinuses Throat: moist mucous membranes, mild erythema, no exudate Neck: supple, no thyromegaly, no lymphadenopathy HEART: regular rate, regular rhythm, no murmurs LUNGS: clear to auscultation, no wheezes or crackles, no increased WOB ASSESSMENT/PLAN: 1. Acute otitis media, left - ICD9: 382.9, ICD10: H66.92 (primary diagnosis) 2. Acute non-recurrent sinusitis, unspecified location - ICD9: 461.9, ICD10: J01.90 - Will begin treatment with as per antibiotic as written, see orders - AMOXICILLIN 875 MG-POTASSIUM CLAVULANATE 125 MG TABLET -Supportive care treatment with as needed analgesia, decongestant, and warm compress. Martin Head MD [facility] 09-08-2024 History of Presen t illness Narrative Patient presents with: Ear Pain: Left ear pain, head congestion, right eye pressure x 1 week HPI: Feeling sick for 1 week with head congestion. Positive symptoms: left ear pain and decreased hearing, Sinus pressure Improved: right earache, Cough, Chest tightness, Nasal Congestion, Post nasal drainage, Chills, Negative symptoms: Fever, OTC: Sudafed, Lozenges, albuterol MEDICATIONS: Current Outpatient Medications Medication Sig clonazePAM (KLONOPIN) 1 mg tablet Take 1 tablet by mouth two times a day for 180 days. omeprazole (PRILOSEC) 20 mg capsule Take 1 capsule by mouth once daily. cholecalciferol (VITAMIN D3) 1,000 unit tab tablet Take 1 tablet by mouth once daily. sildenafil (VIAGRA) 50 mg tablet Take one to two pills as needed an hour prior to sexual activity. No current facility-administered medications for this visit. ALLERGIES: ALLERGIES Allergen Reactions Darvocet A500 [Prop* itch Hydrocodone Bitartr* Itching VITALS: BP 130/84 Pulse 81 Temp 36.6 C (97.8 F) (Tympanic) Resp 16 Wt (!) 136.2 kg (300 lb 4.3 oz) SpO2 97% BMI 48.46 kg/m PHYSICAL EXAM: GEN: mildly ill appearing HEENT: PERRL, EOMI, conjunctiva clear Ears: canals clear. RTM without erythema or bulge, likely effusion. Left tympanic membrane with erythema, bulge, and effusion. Sinuses: tender frontal sinus, tender maxillary sinuses Throat: moist mucous membranes, mild erythema, no exudate Neck: supple, no thyromegaly, no lymphadenopathy HEART: regular rate, regular rhythm, no murmurs LUNGS: clear to auscultation, no wheezes or crackles, no increased WOB ASSESSMENT/PLAN: 1. Acute otitis media, left - ICD9: 382.9, ICD10: H66.92 (primary diagnosis) 2. Acute non-recurrent sinusitis, unspecified location - ICD9: 461.9, ICD10: J01.90 - Will begin treatment with as per antibiotic as written, see orders - AMOXICILLIN 875 MG-POTASSIUM CLAVULANATE 125 MG TABLET -Supportive care treatment with as needed analgesia, decongestant, and warm compress. Martin Head MD documented in this encounter [facility] 07-22-2024 History of Presen t illness Narrative Radiology Service Progress Note PATIENT NAME: Jatin Meza DATE OF SERVICE: July 22, 2024 TIME: 12:42 PM PATIENT IDENTITY VERIFICATION COMPLETED USING TWO (2) IDENTIFIERS: Name and Date of confirmed by patient verbally. FALL SCREENING: Has the patient had 2 falls in the last year or 1 fall with injury or currently using an Ambulatory Assistive Device (Walker, Cane, Wheelchair, Crutches, etc.)? No PATIENT GENDER DATA: Male PATIENT RELEVANT IMPLANT DATA REVIEWED: Not Applicable PATIENT PRESENTS WITH AN IMPLANTABLE OR ATTACHED SHEET COMBINING OPERATOR: No RADIOLOGY DEPARTMENT: General X-ray: Exam(s) Completed: Chest X-Ray PERIPHERAL IV DATA: Not applicable SIGNED BY: RT Greta(R) July 22, 2024 12:42 PM documented in this encounter [facility] 07-22-2024 Note HNO ID: [id number] Author: ADRIANNE HOWELL RT(R) Service: Radiology Author Type: Technologist Type: Progress Notes Filed: 07/22/2024 12:51 Note Text: Radiology Service Progress Note PATIENT NAME: Jatin Meza DATE OF SERVICE: July 22, 2024 TIME: 12:42 PM PATIENT IDENTITY VERIFICATION COMPLETED USING TWO (2) IDENTIFIERS: Name and Date of confirmed by patient verbally. FALL SCREENING: Has the patient had 2 falls in the last year or 1 fall with injury or currently using an Ambulatory Assistive Device (Walker, Cane, Wheelchair, Crutches, etc.)? No PATIENT GENDER DATA: Male PATIENT RELEVANT IMPLANT DATA REVIEWED: Not Applicable PATIENT PRESENTS WITH AN IMPLANTABLE OR ATTACHED SHEET COMBINING OPERATOR: No RADIOLOGY DEPARTMENT: General X-ray: Exam(s) Completed: Chest X-Ray PERIPHERAL IV DATA: Not applicable SIGNED BY: RT Greta(R) July 22, 2024 12:42 PM [facility] 07-22-2024 Note HNO ID: [id number] Author: WILLA PERKINS PA-C Service: ? Author Type: Physician Compliance Auditor Type: Progress Notes Filed: 07/22/2024 13:01 Note Text: This note was created using grabHaloriter. Subjective Jatin Meza is a 53 year old male. Patient is a 53-year-old male who complains of a loose, irritating cough that he has been experiencing for the past 4 days. Patient reports mild congestion but denies sinus pressure, ear pain or sore throat. Patient has no history of asthma or COPD and does not smoke. Patient denies fever, chills or myalgia. Patient states that his 48-year-old niece developed acute onset of cough last evening and subsequently . Patient arrives for evaluation of his cough. Patient denies left chest pain, tightness or pressure reports no episodes of dyspnea or shortness of breath. Patient states that his cough appears to be worse when he first awakens in the morning. Cough Review of Systems Respiratory: Positive for cough. All other systems reviewed and are negative. Objective BP 122/78 Pulse 99 Temp 36.8 ?C (98.2 ?F) (Tympanic) Resp 16 Wt 134.2 kg (295 lb 13.7 oz) SpO2 97% BMI 47.75 kg/m? Physical Exam Vitals and nursing note reviewed. Constitutional: Appearance: Normal appearance. He is normal weight. HENT: Head: Normocephalic and atraumatic. Right Ear: Tympanic membrane, ear canal and external ear normal. Left Ear: Tympanic membrane, ear canal and external ear normal. Nose: Nose normal. Mouth/Throat: Mouth: Mucous membranes are moist. Pharynx: Oropharynx is clear. Eyes: Extraocular Movements: Extraocular movements intact. Conjunctiva/sclera: Conjunctivae normal. Pupils: Pupils are equal, round, and reactive to light. Cardiovascular: Rate and Rhythm: Normal rate and regular rhythm. Pulses: Normal pulses. Heart sounds: Normal heart sounds. Pulmonary: Effort: Pulmonary effort is normal. Breath sounds: Normal breath sounds. Musculoskeletal: Cervical back: Normal range of motion and neck supple. Skin: General: Skin is warm and dry. Capillary Refill: Capillary refill takes less than 2 seconds. Neurological: General: No focal deficit present. Mental Status: He is alert and oriented to person, place, and time. Psychiatric: Mood and Affect: Mood normal. Behavior: Behavior normal. Thought Content: Thought content normal. Judgment: Judgment normal. Assessment and Plan Unremarkable physical exam findings as noted above. Chest x-ray is negative for acute findings as reported by the radiologist. Patient was provided with prescriptions for prednisone 20 mg and Tessalon 100 mg. Supportive care instructions were discussed and the patient verbalizes excellent understanding of same. CLINICAL IMPRESSION: Acute Bronchitis [facility] 07-22-2024 History of Presen t illness Narrative This note was created using grabHaloriter. Subjective Jatin Meza is a 53 year old male. Patient is a 53-year-old male who complains of a loose, irritating cough that he has been experiencing for the past 4 days. Patient reports mild congestion but denies sinus pressure, ear pain or sore throat. Patient has no history of asthma or COPD and does not smoke. Patient denies fever, chills or myalgia. Patient states that his 48-year-old niece developed acute onset of cough last evening and subsequently . Patient arrives for evaluation of his cough. Patient denies left chest pain, tightness or pressure reports no episodes of dyspnea or shortness of breath. Patient states that his cough appears to be worse when he first awakens in the morning. Cough Review of Systems Respiratory: Positive for cough. All other systems reviewed and are negative. Objective BP 122/78 Pulse 99 Temp 36.8 C (98.2 F) (Tympanic) Resp 16 Wt 134.2 kg (295 lb 13.7 oz) SpO2 97% BMI 47.75 kg/m Physical Exam Vitals and nursing note reviewed. Constitutional: Appearance: Normal appearance. He is normal weight. HENT: Head: Normocephalic and atraumatic. Right Ear: Tympanic membrane, ear canal and external ear normal. Left Ear: Tympanic membrane, ear canal and external ear normal. Nose: Nose normal. Mouth/Throat: Mouth: Mucous membranes are moist. Pharynx: Oropharynx is clear. Eyes: Extraocular Movements: Extraocular movements intact. Conjunctiva/sclera: Conjunctivae normal. Pupils: Pupils are equal, round, and reactive to light. Cardiovascular: Rate and Rhythm: Normal rate and regular rhythm. Pulses: Normal pulses. Heart sounds: Normal heart sounds. Pulmonary: Effort: Pulmonary effort is normal. Breath sounds: Normal breath sounds. Musculoskeletal: Cervical back: Normal range of motion and neck supple. Skin: General: Skin is warm and dry. Capillary Refill: Capillary refill takes less than 2 seconds. Neurological: General: No focal deficit present. Mental Status: He is alert and oriented to person, place, and time. Psychiatric: Mood and Affect: Mood normal. Behavior: Behavior normal. Thought Content: Thought content normal. Judgment: Judgment normal. Assessment and Plan Unremarkable physical exam findings as noted above. Chest x-ray is negative for acute findings as reported by the radiologist. Patient was provided with prescriptions for prednisone 20 mg and Tessalon 100 mg. Supportive care instructions were discussed and the patient verbalizes excellent understanding of same. CLINICAL IMPRESSION: Acute Bronchitis documented in this encounter [facility] 11-01-2023 Miscellaneous Notes Last ordered 04/24/2023 Lashay Kaplan MA documented in this encounter [facility] 10-09-2023 Miscellaneous Notes Told patient results of colonoscopy done on 10/08/2023 Findings of tubular adenoma of sigmoid, < 1 cm I have rec'd surveillance colonoscopy in 5 years. Patient acknowledges above HM updated and recall letter generated. documented in this encounter [facility] 10-08-2023 History and physical note UPDATED HISTORY AND PHYSICAL EXAMINATION SERVICE DATE: 10/08/2023 SERVICE TIME: 10:59 PHYSICAL EXAM MUST BE COMPLETED ON ADMISSION The History and Physical (completed in the past 30 days) has been reviewed and the patient has been examined. The contents accurately reflect the patient's condition with the following additions or revisions since the H&P was completed. Examination indicates no changes. This H&P can be found in the Electronic Medical Record. SIGNATURE: Suri Schultz MD PATIENT NAME: Jatin Meza DATE: October 08, 2023 TIME: 11:00 AM Source Note - Suri Schultz MD - 10/08/2023 11:15 AM EST Jatin Meza 1970 REFERRING PHYSICIAN: Mary Wright APRN.[employer] MACHINE HELPER CHIEF COMPLAINT: Consult (Screening for colon cancer) HPI: The patient is a 52 year old male referred for endoscopy. Jatin notes a complaint of rectal pain with radiation into the back. Pain is intermittent, denies particular aggravating or alleviating factors. Notes occasional lower abdominal discomfort with radiation into sides, and some associated loose stools. Has noted a few episodes of blood in stools after eating seeds. Denies any known history of diverticular disease. Denies fever or chills. Patient denies any weight changes or black tarry stools. The patient notes no upper GI complaints. Jatin has not undergone prior endoscopy. Patient notes marijuana use which he uses to help with tremors and tics. Denies chest pain, shortness of breath or recent hospitalizations. Denies problems with sedation in the past. PAST MEDICAL HISTORY PAST MEDICAL HISTORY Diagnosis Date Acute back pain with sciatica, right Erectile dysfunction Generalized anxiety disorder Anxiety, Generalized Plantar fasciitis Radiculopathy of lumbosacral region Vitamin D deficiency PAST SURGICAL HISTORY PAST SURGICAL HISTORY Procedure Laterality Date LAPAROSCOPIC APPENDECTOMY 10-05-2009 CURRENT MEDICATIONS Current Outpatient Medications Medication Sig cholecalciferol (VITAMIN D3) 1,000 unit tab tablet Take 1 tablet by mouth once daily. clonazePAM (KLONOPIN) 1 mg tablet Take 1 tablet by mouth twice daily for 180 days. zolpidem (AMBIEN) 10 mg Take 1 tablet by mouth at bedtime as needed (insomnia) for up to 90 days. sildenafil (VIAGRA) 50 mg tablet Take one to two pills as needed an hour prior to sexual activity. No current facility-administered medications for this visit. ALLERGIES: Darvocet A500 [Propoxyphene N-Acetaminophen] PERSONAL HISTORY: SOCIAL HISTORY Social History Tobacco Use Smoking status: Former Types: Cigarettes Quit date: 09/22/2014 Years since quittin.9 Smokeless tobacco: Never Vaping Use Vaping Use: Never used Substance Use Topics Alcohol use: No Drug use: Yes Types: Marijuana Comment: uses for involuntary body movements FAMILY HISTORY: FAMILY HISTORY FAMILY HISTORY Problem Relation Age of Onset Heart Father Coronary Artery Disease Father Diabetes Father Parkinson's Father Cancer Mother lupus Stroke Mother other (lupus [Other]) Mother Diabetes Mother other (lupus [Other]) Maternal Uncle REVIEW OF SYMPTOMS: The review of systems data was entered by the nurse and reviewed by ks Nursing Notes: Helena Moreland LPN 09/07/2023 8:34 AM Signed REVIEW OF SYSTEMS: General: The patient denies fatigue, denies weight loss, NOTES weight gain, denies feeling hot, and denies feelings of cold. Eyes: The patient denies glaucoma, NOTES eye injury/surgery, does not wear glasses or contacts. Ear/Nose/Throat: The patient NOTES allergies, denies hayfever, denies ear infections, and denies bloody noses. Cardiovascular: The patient denies chest pain, denies heart disease, denies high blood pressure,denies cardiac stent, denies prior heart attack, denies irregular heart beat, denies high cholesterol, denies poor circulation, denies heart failure, other cardiac issues, NOTES claudication, NOTES cold feet, denies peripheral arterial stent. Respiratory: The patient denies tuberculosis, denies pneumonia, denies frequent cough, denies pulmonary embolism, denies shortness of breath, and denies coughing up blood. Gastrointestinal: The patient denies difficulty swallowing, denies acid reflux, denies ulcers, denies vomiting, denies jaundice/hepatitis, denies gallbladder problems, NOTES black or tarry stools, denies hemorrhoids, NOTES bleeding from rectum, denies diverticulitis, denies constipation, denies diarrhea, denies loss of stool control, and denies hernias. Kidney/Bladder: The patient denies kidney stones, denies urine infections, and denies bloody urine. Skin: The patient denies a history of skin cancer, denies bleeding/changing moles, and denies a history of skin rash. Neurologic: The patient denies a history of epilepsy/convulsions, denies headaches, denies head/spinal injuries, and denies stroke/TIA. Psychiatric: The patient denies psychiatric medications, denies depression, and denies voices, denies substance abuse. Endocrine: The patient denies thyroid disorders, denies diabetes, and denies hormonal problems. Hematologic: The patient denies a history of bruising, denies bleeding, and denies anemia, denies blood clots. Infections: The patient denies a history of measles and mumps, denies rheumatic fever, and denies sexually transmitted diseases. Musculoskeletal: The patient NOTES back pain/injury, NOTES back problems, NOTES sciatica, NOTES knee/foot trouble, denies arthritis, or denies gout. When was patient's last Mammogram screening? N/A Last Colonoscopy: no prior Helena Moreland LPN I have confirmed and edited as necessary, the PFSH and ROS obtained by others. Marisa Gates PA-C PHYSICAL EXAMINATION: General: The patient is 52 year old male, well nourished, well hydrated in no acute distress. The patient is oriented to time, place, and person. VITALS: Blood pressure 128/88, pulse 106, temperature 36.4 C (97.6 F), height 165.1 cm (5' 5), weight 132.8 kg (292 lb 12.8 oz), SpO2 96%. Body mass index is 48.72 kg/m . HEENT: Normal cephalic, ataumatic, pupils are equally round, sclera are anicteric, mucous membranes are moist, oropharynx is clear. Neck has no masses, asymmetry or lymphadenopathy. Respiratory: Clear to auscultation and percussion. Normal respiratory excursion and pattern. Cardiac: Examination is regular rate and rhythm. Normal S1/S2 Abdominal exam: Soft, nontender, with no palpable masses. No hepatosplenomegaly. No palpable hernias. Extremities: no clubbing, cyanosis or edema. No adenopathy. LABORATORY VALUES: As Noted RADIOLOGIC STUDIES: As Noted Assessment IMPRESSION: lower abdominal pain, rectal pain, intermittent rectal bleeding, change in bowel habits PLAN: I have reviewed my findings with the surgeon. Will plan for lower endoscopy. We discussed the risks and benefits of the planned endoscopy. I have informed the patient that complications can occur including failure to complete the endoscopy and perforation. The patient had the opportunity to ask questions concerning the planned endoscopy. My staff has also explained the procedure to the patient in understandable terms and has given the patient printed material concerning the procedure. The patient freely consents to surgery. I plan to use Golytely bowel preparation We will plan for Monitored Anesthetic Care. Diagnoses: (R10.30) Lower abdominal pain (primary encounter diagnosis) (Z12.11) Screening for colon cancer (Z80.0) Family history of colon cancer (K62.5) Rectal bleeding (R19.7) Diarrhea, unspecified type Consultation requested by Mary Wright CNP for an opinion regarding colonoscopy. My final recommendations will be communicated back to the requesting physician by way of shared Medical record or letter to requesting physician via US mail. Marisa Gates PA-C Jatin Meza 1970 REFERRING PHYSICIAN: Mary Wright APRN.[employer] MACHINE HELPER CHIEF COMPLAINT: Consult (Screening for colon cancer) HPI: The patient is a 52 year old male referred for endoscopy. Jatin notes a complaint of rectal pain with radiation into the back. Pain is intermittent, denies particular aggravating or alleviating factors. Notes occasional lower abdominal discomfort with radiation into sides, and some associated loose stools. Has noted a few episodes of blood in stools after eating seeds. Denies any known history of diverticular disease. Denies fever or chills. Patient denies any weight changes or black tarry stools. The patient notes no upper GI complaints. Jatin has not undergone prior endoscopy. Patient notes marijuana use which he uses to help with tremors and tics. Denies chest pain, shortness of breath or recent hospitalizations. Denies problems with sedation in the past. PAST MEDICAL HISTORY PAST MEDICAL HISTORY Diagnosis Date Acute back pain with sciatica, right Erectile dysfunction Generalized anxiety disorder Anxiety, Generalized Plantar fasciitis Radiculopathy of lumbosacral region Vitamin D deficiency PAST SURGICAL HISTORY PAST SURGICAL HISTORY Procedure Laterality Date LAPAROSCOPIC APPENDECTOMY 10-05-2009 CURRENT MEDICATIONS Current Outpatient Medications Medication Sig cholecalciferol (VITAMIN D3) 1,000 unit tab tablet Take 1 tablet by mouth once daily. clonazePAM (KLONOPIN) 1 mg tablet Take 1 tablet by mouth twice daily for 180 days. zolpidem (AMBIEN) 10 mg Take 1 tablet by mouth at bedtime as needed (insomnia) for up to 90 days. sildenafil (VIAGRA) 50 mg tablet Take one to two pills as needed an hour prior to sexual activity. No current facility-administered medications for this visit. ALLERGIES: Darvocet A500 [Propoxyphene N-Acetaminophen] PERSONAL HISTORY: SOCIAL HISTORY Social History Tobacco Use Smoking status: Former Types: Cigarettes Quit date: 09/22/2014 Years since quittin.9 Smokeless tobacco: Never Vaping Use Vaping Use: Never used Substance Use Topics Alcohol use: No Drug use: Yes Types: Marijuana Comment: uses for involuntary body movements FAMILY HISTORY: FAMILY HISTORY FAMILY HISTORY Problem Relation Age of Onset Heart Father Coronary Artery Disease Father Diabetes Father Parkinson's Father Cancer Mother lupus Stroke Mother other (lupus [Other]) Mother Diabetes Mother other (lupus [Other]) Maternal Uncle REVIEW OF SYMPTOMS: The review of systems data was entered by the nurse and reviewed by ks Nursing Notes: Helena Moreland LPN 09/07/2023 8:34 AM Signed REVIEW OF SYSTEMS: General: The patient denies fatigue, denies weight loss, NOTES weight gain, denies feeling hot, and denies feelings of cold. Eyes: The patient denies glaucoma, NOTES eye injury/surgery, does not wear glasses or contacts. Ear/Nose/Throat: The patient NOTES allergies, denies hayfever, denies ear infections, and denies bloody noses. Cardiovascular: The patient denies chest pain, denies heart disease, denies high blood pressure,denies cardiac stent, denies prior heart attack, denies irregular heart beat, denies high cholesterol, denies poor circulation, denies heart failure, other cardiac issues, NOTES claudication, NOTES cold feet, denies peripheral arterial stent. Respiratory: The patient denies tuberculosis, denies pneumonia, denies frequent cough, denies pulmonary embolism, denies shortness of breath, and denies coughing up blood. Gastrointestinal: The patient denies difficulty swallowing, denies acid reflux, denies ulcers, denies vomiting, denies jaundice/hepatitis, denies gallbladder problems, NOTES black or tarry stools, denies hemorrhoids, NOTES bleeding from rectum, denies diverticulitis, denies constipation, denies diarrhea, denies loss of stool control, and denies hernias. Kidney/Bladder: The patient denies kidney stones, denies urine infections, and denies bloody urine. Skin: The patient denies a history of skin cancer, denies bleeding/changing moles, and denies a history of skin rash. Neurologic: The patient denies a history of epilepsy/convulsions, denies headaches, denies head/spinal injuries, and denies stroke/TIA. Psychiatric: The patient denies psychiatric medications, denies depression, and denies voices, denies substance abuse. Endocrine: The patient denies thyroid disorders, denies diabetes, and denies hormonal problems. Hematologic: The patient denies a history of bruising, denies bleeding, and denies anemia, denies blood clots. Infections: The patient denies a history of measles and mumps, denies rheumatic fever, and denies sexually transmitted diseases. Musculoskeletal: The patient NOTES back pain/injury, NOTES back problems, NOTES sciatica, NOTES knee/foot trouble, denies arthritis, or denies gout. When was patient's last Mammogram screening? N/A Last Colonoscopy: no prior Helena Moreland LPN I have confirmed and edited as necessary, the PFSH and ROS obtained by others. Marisa Gates PA-C PHYSICAL EXAMINATION: General: The patient is 52 year old male, well nourished, well hydrated in no acute distress. The patient is oriented to time, place, and person. VITALS: Blood pressure 128/88, pulse 106, temperature 36.4 C (97.6 F), height 165.1 cm (5' 5), weight 132.8 kg (292 lb 12.8 oz), SpO2 96%. Body mass index is 48.72 kg/m . HEENT: Normal cephalic, ataumatic, pupils are equally round, sclera are anicteric, mucous membranes are moist, oropharynx is clear. Neck has no masses, asymmetry or lymphadenopathy. Respiratory: Clear to auscultation and percussion. Normal respiratory excursion and pattern. Cardiac: Examination is regular rate and rhythm. Normal S1/S2 Abdominal exam: Soft, nontender, with no palpable masses. No hepatosplenomegaly. No palpable hernias. Extremities: no clubbing, cyanosis or edema. No adenopathy. LABORATORY VALUES: As Noted RADIOLOGIC STUDIES: As Noted Assessment IMPRESSION: lower abdominal pain, rectal pain, intermittent rectal bleeding, change in bowel habits PLAN: I have reviewed my findings with the surgeon. Will plan for lower endoscopy. We discussed the risks and benefits of the planned endoscopy. I have informed the patient that complications can occur including failure to complete the endoscopy and perforation. The patient had the opportunity to ask questions concerning the planned endoscopy. My staff has also explained the procedure to the patient in understandable terms and has given the patient printed material concerning the procedure. The patient freely consents to surgery. I plan to use Golytely bowel preparation We will plan for Monitored Anesthetic Care. Diagnoses: (R10.30) Lower abdominal pain (primary encounter diagnosis) (Z12.11) Screening for colon cancer (Z80.0) Family history of colon cancer (K62.5) Rectal bleeding (R19.7) Diarrhea, unspecified type Consultation requested by Mary Wright CNP for an opinion regarding colonoscopy. My final recommendations will be communicated back to the requesting physician by way of shared Medical record or letter to requesting physician via US mail. Marisa Gates PA-C documented in this encounter [facility] 09-10-2023 Telephone encounter Note Order filed [facility] 09-10-2023 Miscellaneous Notes Order filed Please place order 10/08/2023 [facility] DIAGNOSTIC [facility]ZA documented in this encounter [facility] 09-07-2023 Telephone encounter Note Please place order [facility] 09-07-2023 Telephone encounter Note 10/08/2023 COLON DIAGNOSTIC LANZA [facility] 04-23-2023 Miscellaneous Notes Please see pended medication. Pharmacy linked. Last ordered 09/15/2022. Lashay Kaplan MA documented in this encounter [facility] 02-21-2023 History of Presen t illness Narrative Episode Visit Count: 1 Therapist That Will Accept/Oversee The Plan Of Care: Lowell Arora Start of Care Date: 02/21/23 Onset Date: 12/22/22 Plan of Care Certification Date: 02/21/23 Next Certification Due Date: 04/23/23 Patient Identified by Name and Date of : Yes RE[facility]ABIL[facility] AND SPORTS THERAPY PHYSICAL THERAPY EVALUATION PLAN OF CARE: Assessment: Jatin Meza presents with chief complaint of LBP with right sided sciatica that interferes with sitting, standing, walking, heavy exertion, lifting, physical activities, recreational activities, working, sleeping, driving . He presents with impairments in ADL's, gait, overall function, range of motion, strength, and symptom management. PROMIS (Patient-Reported Outcomes Measurement Information System) scores were reviewed and all domains identified as a rehabilitation concern. Prognosis for therapy is Good due to: current objective clinical presentation, good overall health status, acuteness of condition, within-session changes, good support system/ coping skills . He will benefit from skilled therapy services to meet the goals established for this plan of care as noted below. Classification Low Back Pain Subgroup Classification: Specific exercise subgroup: recommended visits 8. Specific Exercies Subgroup Classification based on: directional preference, centralization Goals for Episode of Care: created on 02/21/23 through 04/23/23 Independent in home exercises. Patient will decrease pain rating by 2 points to meet minimal clinical important difference for numeric pain rating scale. Restore pain-free lumbar ROM to WFL to allow for improved functional mobility Stand / Walk as needed for work and ADLs without pain/symptoms. Sleep through night without pain/symptoms. Patient will increase strength of trunk/core to 4+/5 to allow for improve ability to complete ADLs. Planned Interventions, Frequency, and Duration: Current Frequency: 2x/week Duration: 8 weeks Total Number of Visits Planned: 16 Planned Treatment Interventions: Therapeutic exercise (83051), Neuromuscular re-education (97837), Manual therapy (38552), Therapeutic activities (02557), Self-assisted management (88630), Patient/Family/Caregiver Education, Body Mechanics Training PLAN FOR NEXT VISIT: Traction as needed, flexion bias. Eventually adding in neutral spien strengthening as symptoms allow Patient demonstrates good understanding of plan of care and treatment. The above goals and plan of care were discussed and agreed upon by patient/family. SUBJECTIVE: Jatin Meza is a 52 year old male seen today for LBP and R sided sciatica that started 2 months ago and is now to the point of a 10/10 pain. Pt notes that pretty much every position hurts, just a mtter of how bad. In general the more he does the worse it gets. Pt needs to use cane bc of foot drop. Denies b/b involvement or changes. Pain, numbness, tingling, and sweating due to the intense pain. 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 Cancer Red Flags: Night pain at rest Cancer Clinical Reasoning: No identified risk factors. Infection Red Flags: Constant, progressive pain Infection Clinical Reasoning: No identified risk factors. Cauda Equina Syndrome Clinical Reasoning: No identified risk factors. Red Flags - Cervical Cancer Red Flags: Night pain at rest Cancer Clinical Reasoning: No identified risk factors. Infection Red Flags: Constant, progressive pain Infection Clinical Reasoning: No identified risk factors. Pain: Pain Pain Level: 10 Pain Location: Low Back/Lumbar Spine - Right, Leg - Right, Foot - Right Description: Shooting, Aching, Throbbing, Numbness, Tingling Frequency: Continuous Post Treatment Pain Post Treatment Pain Level: 3 Post Treatment Pain Location: Low Back/Lumbar Spine - Right, Leg - Right Post Treatment Pain Description: Dull, Tightness PROMIS Scales Higher is Better 02/21/2023 Phys Func - Score 27 (severe dysfunction) Phys Func - Percentile 1 % Self-Eff Symptom - Score 29 (Very Low) Self-Eff Symptom - Percentile 2 % T-scores: mean of general population = 50. 5 points is clinically meaningfully difference Percentiles provide an indication of how the patient's score ranks in relation to the general population. Higher percentile rankings indicate better function/quality of life. 50th percentile is the average of the general population and indicates half of respondents had a worse score. OBJECTIVE MEASURES WITH LEVEL OF FUNCTION: Lumbar Spine AROM Lumbar Flexion: Major limitation Lumbar Extension: Major limitation Lumbar R Side-Bend: Major limitation Lumbar L Side-Bend: Major limitation Lumbar R Rotation: Major limitation Lumbar L Rotation: Major limitation Repeated Test Movements - Lumbar RFIL - Symptoms During: decreases RFIL - Symptoms After: better REIL - Symptoms During: increases REIL - Symptoms After: peripheralized LE Strength Trunk Strength: 3/5 grossly R LE Strength: 2+/5 grossly due to pain, worse in L4-S1 distribution L LE Strength: 5/5 Special Tests - Hip and Spine Hip and Spine Special Tests: SLR Test, Slump Test SLR Test: Right Positive Slump Test: Right Positive Education: Education Learning/educational needs: Home exercise program, Plan of Care, Changes in Plan of Care, Posture, Body Mechanics TREATMENT: PT Treatment Interventions: Therapeutic Exercise, Manual Therapy Evaluation Therapeutic Exercise: 1: *SKC 3x30 sec 2: *DKC 3x30 sec 3: *Feet elevated in supine on stool x5 min Skilled Intervention: Patient was educated in proper exercise technique and purpose for exercises. Skilled judgment was provided in selection of appropriate interventions. Provided written instruction for home exercise program to facilitate proper performance and compliance. Correct performance of therapeutic exercises was facilitated with verbal, visual, and tactile cuing. Manual Therapy: 1: Manual lumbar belt traction with pull to tolerance, feet on stool x15 min Skilled Intervention: Manual skills to improve joint mobility, ROM, and decrease pain. Utilized anatomy knowledge of the therapist, and assessment of patient's response to intervention. Billing * Evaluation Low Complexity: 1 Unit Therapeutic Exercise Treatment Minutes: 10 Manual TherapyTreatment Minutes: 15 Total Treatment Time Minutes (timed/untimed): 50 Lowell Arora PT documented in this encounter [facility] 02-20-2023 History of Presen t illness Narrative Reason for Visit Patient presents with: F/U 6 months: c/o lower back pain x 2 months 10/10 pain scale Jatin Meza is a 52 year old male who presents here today for Above Complaints.. Health Maintenance HEPATITIS B(1 of 3 - 3-dose series) HEPATITIS C SCREENING HIV SCREENING DTAP,TDAP,TD(1 - Tdap) COLORECTAL CANCER SCREENING LIPID SCREEN COVID-19 VACCINE(3 - Booster for Moderna series) SHINGRIX VACCINE(1 of 2) HPI For 4 weeks now the patient has been having pain that is progressively getting worse. The pain is in the back and radiated to the right leg. Please review previous note for a few more details. He has weakness in the right leg along with swelling, there is no dvt from scan 2 weeks ago,. He has been falling as he is unable to lift his leg while walking. He has fallen 2 times in the past week, and so has been using a cane. Compared to the past 2 weeks, he now has motor deficits that is making it hard for him to walk Also has constant pain 10/10 almost daily disrupting his ability to sleep and to do his work. Sweats at night due to the pain. The pain is mainly in the back and now it is in the right medial calf and there is shooting numbness and tingling from the calf down. No bowel and bladder issues No problem-specific Assessment & Plan notes found for this encounter. PAST MEDICAL HISTORY Diagnosis Date Generalized anxiety disorder Anxiety, Generalized PAST SURGICAL HISTORY Procedure Laterality Date LAPAROSCOPIC APPENDECTOMY 10-05-2009 FAMILY HISTORY Problem Relation Age of Onset Heart Father Coronary Artery Disease Father Diabetes Father Parkinson's Father Cancer Mother lupus Stroke Mother other (lupus [Other]) Mother Diabetes Mother other (lupus [Other]) Maternal Uncle Social History Tobacco Use Smoking status: Former Types: Cigarettes Quit date: 09/22/2014 Years since quittin.4 Smokeless tobacco: Never Substance Use Topics Alcohol use: No Drug use: No Past medical history, appointments, medications, allergies reviewed. Pertinent Lab/Diagnostic Studies are reviewed and discussed today Current Outpatient Medications: cyclobenzaprine (FLEXERIL) 5 mg tablet etodolac (LODINE) 200 mg capsule sildenafil (VIAGRA) 50 mg tablet clonazePAM (KLONOPIN) 1 mg tablet cholecalciferol, Vitamin D3, (VITAMIN D3) 1,250 mcg (50,000 unit) cap capsule triamcinolone acetonide (KENALOG) 0.1 % cream omeprazole (PRILOSEC) 20 mg capsule Ascorbic Ejxw-Duvcffzsn-Sru (EMERGEN-C) 1,000 mg pwep benzonatate (TESSALON PERLE) 100 mg capsule albuterol HFA (PROAIR HFA) 90 mcg/actuation inhaler diclofenac (VOLTAREN ARTHRITIS PAIN) 1 % topical gel Review of Systems CONSTITUTIONAL: No fevers, chills night sweats, unintended weight loss CARDIOVASCULAR: No chest pain, dyspnea, palpitations, orthopnea, PND, ankle edema. PULM: No dyspnea, unexplained cough. GI: No dysphagia/odynophagia, problematic reflux, constipation, diarrhea, changes in stool habits, hematochezia, melena. : No new urinary complaints, including dysuria, gross hematuria or pyuria. NEURO: No new balance problems, peripheral weakness/paresthesias or numbness of concern. Physical Exam BP 136/86 (BP Site: Left Arm, BP Position: Sitting, BP Cuff Size: Large Adult) Pulse 86 Temp 36.7 C (98 F) Resp 14 Ht 167.6 cm (5' 6) Wt 125.6 kg (277 lb) SpO2 98% BMI 44.71 kg/m General appearance: in obvious pain, here with care today, cannot lie down on table due to the severe pain he has with getting up and manevering him self, alert, in no acute distress, well nourished. Skin: Skin color, texture, turgor normal, no suspicious rashes or lesions Head: Normocephalic, no masses, lesions, tenderness or abnormalities Eyes: Anicteric sclera. Pupils are equally round and reactive to light. Extraocular movements are intact. Lungs: Lungs clear to auscultation. No wheezing, rhonchi, rales Heart: RRR without murmur, gallop, or rubs. Right leg: he has no\ sensation to touch to the lateral and medial aspect of the right leg. Plantar flexion and dorsiflexion is 2/5. He cannot stand on tip toes or heels. Ankle clonus present. Hyperreflexia on the right side compared to the left. ASSESSMENT/PLAN: 1. Foot drop, right - ICD9: 736.79, ICD10: M21.371 (primary diagnosis) - CONSULT TO PAIN MGT 2. Numbness of right foot - ICD9: 782.0, ICD10: R20.0 - CONSULT TO PAIN MGT 3. Lumbar radiculopathy - ICD9: 724.4, ICD10: M54.16 - CONSULT TO PAIN MGT 4. Insomnia, unspecified type - ICD9: 780.52, ICD10: G47.00 - CONSULT TO PAIN MGT 5. Decreased sensation of leg - ICD9: 782.0, ICD10: R20.8 - CONSULT TO PAIN MGT Rogers Pisano MD documented in this encounter [facility] 02-09-2023 Miscellaneous Notes Physical Therapy orderd placed Rogers Omer MD Patient asking if PT and pain management orders are in. Advised Pain management referral is in and he can schedule with [facility] or [facility] or [facility]. Please place order for PT. Patient states he will try PT first and would like to start soon. documented in this encounter [facility] 01-26-2023 History of Presen t illness Narrative Radiology Service Progress Note PATIENT NAME: Jatin Meza DATE OF SERVICE: January 26, 2023 TIME: 3:39 PM PATIENT IDENTITY VERIFICATION COMPLETED USING TWO (2) IDENTIFIERS: Name and Date of confirmed by patient verbally. FALL SCREENING: Has the patient had 2 falls in the last year or 1 fall with injury or currently using an Ambulatory Assistive Device (Walker, Cane, Wheelchair, Crutches, etc.)? No PATIENT GENDER DATA: Male PATIENT RELEVANT IMPLANT DATA REVIEWED: Not Applicable RADIOLOGY DEPARTMENT: General X-ray: Exam(s) Completed: Spine X-Ray(s): Lumbar AP / LAT / L5-S1 , DONE SUPINE PERIPHERAL IV DATA: Not applicable SIGNED BY: RT Lorna(R) January 26, 2023 3:39 PM documented in this encounter [facility] 01-26-2023 History of Presen t illness Narrative Radiology Service Progress Note PATIENT NAME: Jatin Meza DATE OF SERVICE: January 26, 2023 TIME: 3:15 PM PATIENT IDENTITY VERIFICATION COMPLETED USING TWO (2) IDENTIFIERS: Name and Date of confirmed by patient verbally. FALL SCREENING: Has the patient had 2 falls in the last year or 1 fall with injury or currently using an Ambulatory Assistive Device (Walker, Cane, Wheelchair, Crutches, etc.)? No PATIENT GENDER DATA: Male PATIENT RELEVANT IMPLANT DATA REVIEWED: Not Applicable RADIOLOGY DEPARTMENT: Ultrasound PERIPHERAL IV DATA: Not applicable SIGNED BY: Suzy Cook RDMS January 26, 2023 3:15 PM documented in this encounter [facility] 01-05-2023 History of Presen t illness Narrative Reason for Visit Patient presents with: Same Day Appointment: back pain x 2 weeks Jatin Meza is a 52 year old male who presents here today for Above Complaints.. Health Maintenance HEPATITIS B(1 of 3 - 3-dose series) HEPATITIS C SCREENING HIV SCREENING DTAP,TDAP,TD(1 - Tdap) COLORECTAL CANCER SCREENING LIPID SCREEN COVID-19 VACCINE(3 - Booster for Moderna series) SHINGRIX VACCINE(1 of 2) DEPRESSION ASSESSMENT HPI 2 weeks ago, started with pain in the right side. It was a tightness in the right back. that got progressively worse. He think he got a different vehicle , the drivers seat is much lower than before and which is long hours of driving he may have ppt this lumbar sprain with sciatica . He has constant pain with no bowel and bladder issues. 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 No problem-specific Assessment & Plan notes found for this encounter. PAST MEDICAL HISTORY Diagnosis Date Generalized anxiety disorder Anxiety, Generalized PAST SURGICAL HISTORY Procedure Laterality Date LAPAROSCOPIC APPENDECTOMY 10-05-2009 FAMILY HISTORY Problem Relation Age of Onset Heart Father Coronary Artery Disease Father Diabetes Father Parkinson's Father Cancer Mother lupus Stroke Mother other (lupus [Other]) Mother Diabetes Mother other (lupus [Other]) Maternal Uncle Social History Tobacco Use Smoking status: Former Types: Cigarettes Quit date: 09/22/2014 Years since quittin.2 Smokeless tobacco: Never Substance Use Topics Alcohol use: No Drug use: No Past medical history, appointments, medications, allergies reviewed. Pertinent Lab/Diagnostic Studies are reviewed and discussed today Current Outpatient Medications: sildenafil (VIAGRA) 50 mg tablet clonazePAM (KLONOPIN) 1 mg tablet cholecalciferol, Vitamin D3, (VITAMIN D3) 1,250 mcg (50,000 unit) cap capsule triamcinolone acetonide (KENALOG) 0.1 % cream omeprazole (PRILOSEC) 20 mg capsule Ascorbic Svwh-Przuurttm-Wmx (EMERGEN-C) 1,000 mg pwep benzonatate (TESSALON PERLE) 100 mg capsule albuterol HFA (PROAIR HFA) 90 mcg/actuation inhaler diclofenac (VOLTAREN ARTHRITIS PAIN) 1 % topical gel Review of Systems CONSTITUTIONAL: No fevers, chills night sweats, unintended weight loss CARDIOVASCULAR: No chest pain, dyspnea, palpitations, orthopnea, PND, ankle edema. PULM: No dyspnea, unexplained cough. GI: No dysphagia/odynophagia, problematic reflux, constipation, diarrhea, changes in stool habits, hematochezia, melena. : No new urinary complaints, including dysuria, gross hematuria or pyuria. NEURO: No new balance problems, peripheral weakness/paresthesias or numbness of concern. Physical Exam BP 124/70 (BP Site: Left Arm, BP Position: Sitting, BP Cuff Size: Large Adult) Pulse 95 Temp 36.8 C (98.3 F) Resp 14 Ht 167.6 cm (5' 6) Wt 122.9 kg (271 lb) SpO2 97% BMI 43.74 kg/m General appearance: he want stooping over alert, in no acute distress, well nourished. Skin: Skin color, texture, turgor normal, no suspicious rashes or lesions Head: Normocephalic, no masses, lesions, tenderness or abnormalities Eyes: Anicteric sclera. Pupils are equally round and reactive to light. Extraocular movements are intact. Lungs: Lungs clear to auscultation. No wheezing, rhonchi, rales Heart: RRR without murmur, gallop, or rubs. Back: he was stopped over and due to his body habitus would be hard to get him on table No exam was done ASSESSMENT/PLAN: 1. Lumbar sprain, initial encounter - ICD9: 847.2, ICD10: S33.5XXA (primary diagnosis) Prednisone and muscle relaxors And lodine to not take loding and pred together To take after food Went over the side effect profile for the drug with the patient, mentioned every one of it , discussed appropriate concerns , alternatives and benefits of the drug, 2. Bilateral low back pain with right-sided sciatica, unspecified chronicity - ICD9: 724.3, ICD10: M54.41 Rogers Pisano MD documented in this encounter [facility] 10-17-2022 History of Presen t illness Narrative Chief Complaint Patient presents with: Diarrhea HPI Jatin Meza is a 52 year old male who is contacted today for a virtual/telemedicine visit. This is an established patient of Dr. Rogers Pisano MD. States for 2 days he has been having a diarrhea, with liquid stool, approximately 12 to 18 times. He feels tired, ill and abdomen is in discomfort, some rumbling and growling on the left side. The stool is usually smelly, no blood in the stool and no mucus. Mild fever maybe but no chills. He did move around a little today but does not feel upto par. He normally does not eat stake and had It is a lot less today. Past medical history, appointments, medications, allergies reviewed 10/17/2022 Previous Medical History PAST MEDICAL HISTORY Diagnosis Date Generalized anxiety disorder Anxiety, Generalized Previous Surgical History PAST SURGICAL HISTORY Procedure Laterality Date LAPAROSCOPIC APPENDECTOMY 10-05-2009 Family History FAMILY HISTORY Problem Relation Age of Onset Heart Father Coronary Artery Disease Father Diabetes Father Parkinson's Father Cancer Mother lupus Stroke Mother other (lupus [Other]) Mother Diabetes Mother other (lupus [Other]) Maternal Uncle Patient Allergies ALLERGIES Allergen Reactions Darvocet A500 [Prop* itch Current Medications Current Outpatient Medications on File Prior to Visit Medication Sig sildenafil (VIAGRA) 50 mg tablet Take one to two pills as needed an hour prior to sexual activity. clonazePAM (KLONOPIN) 1 mg tablet Take 1 tablet by mouth twice daily for 180 days. cholecalciferol, Vitamin D3, (VITAMIN D3) 1,250 mcg (50,000 unit) cap capsule Take 1 capsule by mouth two times a week. (ONE CAPSULE) FOR VITAMIN D DEFICIENCY triamcinolone acetonide (KENALOG) 0.1 % cream Apply 1 application to affected area three times daily. Apply sparingly to area for rash/itching. omeprazole (PRILOSEC) 20 mg capsule Take 1 capsule by mouth daily before breakfast. Ascorbic Avvw-Lzzkqkvgp-Opu (EMERGEN-C) 1,000 mg pwep Take by mouth. (Patient not taking: Reported on 06/26/2022) benzonatate (TESSALON PERLE) 100 mg capsule Take 1-2 capsules every 8 hours as needed. (Patient not taking: Reported on 06/26/2022) albuterol HFA (PROAIR HFA) 90 mcg/actuation inhaler Inhale 1-2 Puffs as instructed every 4 hours as needed. (Patient not taking: Reported on 06/26/2022) diclofenac (VOLTAREN ARTHRITIS PAIN) 1 % topical gel Apply 2 g to affected area four times daily. (Patient not taking: Reported on 09/06/2021 ) No current facility-administered medications on file prior to visit. Social History Social History Tobacco Use Smoking status: Former Types: Cigarettes Quit date: 09/22/2014 Years since quittin.0 Smokeless tobacco: Never Substance Use Topics Alcohol use: No Drug use: No Review of Symptoms GENERAL: No weight loss. No malaise or fevers HEENT: Negative for headaches No eye discharge or redness No earaches or drainage No sore throat Nose POS/NEG for congestion and nasal discharge NECK: Negative for lumps, pain or significant neck swelling RESPIRATORY: No wheezing, SOB, Difficulty breathing. CARDIOVASCULAR: Negative for chest pain GI: No nausea, vomiting, or diarrhea MUSCULOSKELETAL: Negative for muscle aches or bodyaches SKIN: Negative for lesions, rash, and itching Neuro: No lightheadedness or dizziness EXAM: There were no vitals taken for this visit. Deferred physical exam as visit was completed over the phone. Virtual visit completed using video, limited exam completed. General Appearance: Well appearing, alert, in no acute distress, well-hydrated, well nourished. Skin: Skin color Head: Normocephalic Psych: Attitude - cooperative, easily engaged in conversation Appearance - normal, hygiene and grooming appropriate Affect - euthymic, normal mood Mental status: Alert, attentive. Speech is clear and fluent with good repetition, comprehension Coordination: No abnormal or extraneous movements. Gait/Stance: Posture is normal. Health Maintenance List HEPATITIS B(1 of 3 - 3-dose series) Never done HEPATITIS C SCREENING Never done HIV SCREENING Never done DTAP,TDAP,TD(1 - Tdap) Never done COLORECTAL CANCER SCREENING Never done LIPID SCREEN due on 10/30/2019 COVID-19 VACCINE(3 - Booster for Moderna series) due on 08/05/2021 SHINGRIX VACCINE(1 of 2) Never done INFLUENZA(1) due on 05/04/2022 DEPRESSION ASSESSMENT Never done DIABETES SCREEN due on 02/15/2024 Data reviewed Last 5 Encounter BP Readings: Date: BP: 09/29/2022 134/76 06/26/2022 124/80 09/06/2021 142/98 04/04/2021 160/95 03/25/2021 148/80 BMI Readings from Last 5 Encounters: 09/29/22 : 44.55 kg/m 06/26/22 : 45.03 kg/m 09/06/21 : 44.55 kg/m 04/04/21 : 42.40 kg/m 03/25/21 : 43.58 kg/m Last 5 Encounter Wt Readings: Date: Wt: 09/29/2022 125.2 kg (276 lb) 06/26/2022 126.6 kg (279 lb) 09/06/2021 125.2 kg (276 lb) 04/04/2021 119.2 kg (262 lb 11.2 oz) 03/25/2021 122.5 kg (270 lb) Medication and allergy list reviewed, reconciled and updated 10/17/2022 ASSESSMENT/PLAN: 1. Diarrhea, unspecified type - ICD9: 787.91, ICD10: R19.7 Maybe diverticulitis. Gave him cipro and flagyl. Rogers Pisano MD documented in this encounter [facility] 09-29-2022 History of Presen t illness Narrative Reason for Visit Patient presents with: Follow Up Jatin Meza is a 52 year old male who presents here today for Above Complaints. Health Maintenance HEPATITIS B(1 of 3 - 3-dose series) HEPATITIS C SCREENING HIV SCREENING DTAP,TDAP,TD(1 - Tdap) COLORECTAL CANCER SCREENING LIPID SCREEN COVID-19 VACCINE(3 - Booster for Moderna series) SHINGRIX VACCINE(1 of 2) INFLUENZA(1) DEPRESSION ASSESSMENT HPI Essential tremor vs tardive dyskinesia: patient does not drink coffee or tea, does not also smoke or do marijuana. Has been drinking aloe, beets, charles smoothie in the mornign and has not been really as energetic this much before He had seen Dr Bob darling and was told he had tardive dyskinea. He has been taking clonazepam and it has helped in many different ways. Has been feeling the best he has in a while. With the clonopin the patient has been able to control tremor enough that he is able to take care of his daily activities like driving, doing his business, thinking clearly, doing his activities of daily living and instrumental activities of daily living When he is excited or anxious, like meeting a grandbaby it can be exxagerrated , his arms flail, he can have a tick in the head. He is able to deal with things, DBS was suggested, but he does not want to do it right now. ED is a concern: would like to try viagra, concerned with cost. Patient has been taking prilosec and symptoms are controlled with the medication. No problem-specific Assessment & Plan notes found for this encounter. PAST MEDICAL HISTORY Diagnosis Date Generalized anxiety disorder Anxiety, Generalized PAST SURGICAL HISTORY Procedure Laterality Date LAPAROSCOPIC APPENDECTOMY 10-05-2009 FAMILY HISTORY Problem Relation Age of Onset Heart Father Coronary Artery Disease Father Diabetes Father Parkinson's Father Cancer Mother lupus Stroke Mother other (lupus [Other]) Mother Diabetes Mother other (lupus [Other]) Maternal Uncle Social History Tobacco Use Smoking status: Former Types: Cigarettes Quit date: 09/22/2014 Years since quittin.0 Smokeless tobacco: Never Substance Use Topics Alcohol use: No Drug use: No Past medical history, appointments, medications, allergies reviewed. Pertinent Lab/Diagnostic Studies are reviewed and discussed today Current Outpatient Medications: clonazePAM (KLONOPIN) 1 mg tablet cholecalciferol, Vitamin D3, (VITAMIN D3) 1,250 mcg (50,000 unit) cap capsule omeprazole (PRILOSEC) 20 mg capsule triamcinolone acetonide (KENALOG) 0.1 % cream Ascorbic Ntqy-Mttkygdih-Jvo (EMERGEN-C) 1,000 mg pwep benzonatate (TESSALON PERLE) 100 mg capsule albuterol HFA (PROAIR HFA) 90 mcg/actuation inhaler diclofenac (VOLTAREN ARTHRITIS PAIN) 1 % topical gel Review of Systems CONSTITUTIONAL: No fevers, chills night sweats, unintended weight loss CARDIOVASCULAR: No chest pain, dyspnea, palpitations, orthopnea, PND, ankle edema. PULM: No dyspnea, unexplained cough. GI: No dysphagia/odynophagia, problematic reflux, constipation, diarrhea, changes in stool habits, hematochezia, melena. : No new urinary complaints, including dysuria, gross hematuria or pyuria. NEURO: No new balance problems, peripheral weakness/paresthesias or numbness of concern. Physical Exam BP 134/76 (BP Site: Left Arm, BP Position: Sitting, BP Cuff Size: Large Adult) Pulse 82 Temp 36.9 C (98.5 F) Resp 14 Ht 167.6 cm (5' 6) Wt 125.2 kg (276 lb) SpO2 98% BMI 44.55 kg/m General appearance: Well appearing, alert, in no acute distress, well nourished. Skin: Skin color, texture, turgor normal, no suspicious rashes or lesions Head: Normocephalic, no masses, lesions, tenderness or abnormalities Eyes: Anicteric sclera. Pupils are equally round and reactive to light. Extraocular movements are intact. Lungs: Lungs clear to auscultation. No wheezing, rhonchi, rales Heart: RRR without murmur, gallop, or rubs. Extremities: No deformities, edema, skin discoloration, clubbing or cyanosis. Good capillary refill. ASSESSMENT/PLAN: 1. Tremor - ICD9: 781.0, ICD10: R25.1 (primary diagnosis) The patient is dealing fairly well with the tremor on the clonazepam He has not felt this good in his life. 2. Tics of organic origin - ICD9: 333.3, ICD10: G25.69 See hpi 3. Morbid obesity with BMI of 40.0-44.9, adult (HCC) - ICD9: 278.01, V85.41, ICD10: E66.01, Z68.41 Stable He has been working well on his diet and exercise. 4. Encounter for screening for diabetes mellitus - ICD9: V77.1, ICD10: Z13.1 - HGB A1C 5. Lipid screening - ICD9: V77.91, ICD10: Z13.220 - COMP METABOLIC PANEL - CBC + DIFF - LIPID PANEL BASIC Rogers Pisano MD documented in this encounter [facility] 09-15-2022 Miscellaneous Notes Please see pended medication. Pharmacy linked. Last ordered 03/10/2022. Lashay Kaplan MA Patient has been identified by name and date of : Yes Patient phoned to request the following prescription(s) If there are any questions regarding this prescription request, call at home at: [phone] (home) [phone] (cell) RX INSTRUCTIONS: Patient aware RX will be sent to pharmacy. No need to notify patient. Date of last office visit: 08/22/21 Date of last [facility] visit: Visit date not found Date of future office visit: Not Scheduled Requested Prescriptions No prescriptions requested or ordered in this encounter Prescriptions are usually addressed within 24-48 business hours. If patient states they cannot wait 24-48 business hours, please document details. Last 2 Encounter Wt Readings: Date: Wt: 06/26/2022 126.6 kg (279 lb) 09/06/2021 125.2 kg (276 lb) Last 2 Encounter BP Readings: Date: BP: 06/26/2022 124/80 09/06/2021 142/98 Nurys Lloyd Pss documented in this encounter [facility] 08-16-2022 History of Presen t illness Narrative Chief Complaint No chief complaint on file. HPI Jatin Meza is a 51 year old male who is contacted today for a virtual/telemedicine visit. This is an established patient of Dr. Rogers Pisano MD. States Has covid, his symptoms include, body ache, fatigue, felt hot and cold a lot, he had a sore throat since Sunday , is a contact. Denies fever or chills. He had a scratchy throat and appetite.he had a severe head ache. The ibuprofen and tylenol have been helping him a lot. Feels like he has turned a corner today though and denies. No chest pain or sob. Will send paxlovid, he will take it if it is needed. Past medical history, appointments, medications, allergies reviewed 08/16/2022 Previous Medical History PAST MEDICAL HISTORY Diagnosis Date Generalized anxiety disorder Anxiety, Generalized Previous Surgical History PAST SURGICAL HISTORY Procedure Laterality Date LAPAROSCOPIC APPENDECTOMY 10-05-2009 Family History FAMILY HISTORY Problem Relation Age of Onset Heart Father Coronary Artery Disease Father Diabetes Father Parkinson's Father Cancer Mother lupus Stroke Mother other (lupus [Other]) Mother Diabetes Mother other (lupus [Other]) Maternal Uncle Patient Allergies ALLERGIES Allergen Reactions Darvocet A500 [Prop* itch Current Medications Current Outpatient Medications on File Prior to Visit Medication Sig cholecalciferol, Vitamin D3, (VITAMIN D3) 1,250 mcg (50,000 unit) cap capsule Take 1 capsule by mouth two times a week. (ONE CAPSULE) FOR VITAMIN D DEFICIENCY triamcinolone acetonide (KENALOG) 0.1 % cream Apply 1 application to affected area three times daily. Apply sparingly to area for rash/itching. clonazePAM (KLONOPIN) 1 mg tablet Take 1 tablet by mouth twice daily for 180 days. omeprazole (PRILOSEC) 20 mg capsule Take 1 capsule by mouth daily before breakfast. Ascorbic Mnvs-Wyhmzkqmn-Vxd (EMERGEN-C) 1,000 mg pwep Take by mouth. (Patient not taking: Reported on 06/26/2022) benzonatate (TESSALON PERLE) 100 mg capsule Take 1-2 capsules every 8 hours as needed. (Patient not taking: Reported on 06/26/2022) albuterol HFA (PROAIR HFA) 90 mcg/actuation inhaler Inhale 1-2 Puffs as instructed every 4 hours as needed. (Patient not taking: Reported on 06/26/2022) diclofenac (VOLTAREN ARTHRITIS PAIN) 1 % topical gel Apply 2 g to affected area four times daily. (Patient not taking: Reported on 09/06/2021 ) No current facility-administered medications on file prior to visit. Social History Social History Tobacco Use Smoking status: Former Types: Cigarettes Quit date: 09/22/2014 Years since quittin.9 Smokeless tobacco: Never Substance Use Topics Alcohol use: No Drug use: No Review of Symptoms GENERAL: No weight loss. No malaise or fevers HEENT: Negative for headaches No eye discharge or redness No earaches or drainage No sore throat Nose POS/NEG for congestion and nasal discharge NECK: Negative for lumps, pain or significant neck swelling RESPIRATORY: No wheezing, SOB, Difficulty breathing. CARDIOVASCULAR: Negative for chest pain GI: No nausea, vomiting, or diarrhea MUSCULOSKELETAL: Negative for muscle aches or bodyaches SKIN: Negative for lesions, rash, and itching Neuro: No lightheadedness or dizziness EXAM: There were no vitals taken for this visit. Deferred physical exam as visit was completed over the phone. Virtual visit completed using video, limited exam completed. General Appearance: Well appearing, alert, in no acute distress, well-hydrated, well nourished. Skin: Skin color Head: Normocephalic Psych: Attitude - cooperative, easily engaged in conversation Appearance - normal, hygiene and grooming appropriate Affect - euthymic, normal mood Mental status: Alert, attentive. Speech is clear and fluent with good repetition, comprehension Coordination: No abnormal or extraneous movements. Gait/Stance: Posture is normal. Health Maintenance List HEPATITIS B(1 of 3 - 3-dose series) Never done HEPATITIS C SCREENING Never done HIV SCREENING Never done DTAP,TDAP,TD(1 - Tdap) Never done COLORECTAL CANCER SCREENING Never done LIPID SCREEN due on 10/30/2019 COVID-19 VACCINE(3 - Booster for Moderna series) due on 08/05/2021 DEPRESSION ASSESSMENT Never done SHINGRIX VACCINE(1 of 2) Never done INFLUENZA(1) due on 05/04/2022 DIABETES SCREEN due on 02/15/2024 Data reviewed Last 5 Encounter BP Readings: Date: BP: 06/26/2022 124/80 09/06/2021 142/98 04/04/2021 160/95 03/25/2021 148/80 12/31/2020 132/82 BMI Readings from Last 5 Encounters: 06/26/22 : 45.03 kg/m 09/06/21 : 44.55 kg/m 04/04/21 : 42.40 kg/m 03/25/21 : 43.58 kg/m 12/31/20 : 42.29 kg/m Last 5 Encounter Wt Readings: Date: Wt: 06/26/2022 126.6 kg (279 lb) 09/06/2021 125.2 kg (276 lb) 04/04/2021 119.2 kg (262 lb 11.2 oz) 03/25/2021 122.5 kg (270 lb) 12/31/2020 118.8 kg (262 lb) Medication and allergy list reviewed, reconciled and updated 08/16/2022. ASSESSMENT/PLAN: 1. COVID-19 virus infection - ICD9: 079.89, ICD10: U07.1 Paxlovid Is sent to the pharmacy. Went over the side effect profile for the drug with the patient, mentioned every one of it , discussed appropriate concerns , alternatives and benefits of the drug, RegardsRogers MD documented in this encounter [facility] 08-16-2022 Miscellaneous Notes Pt called and is notified of providers message and instructions. Pt has VV set up with provider at 320 pm today. Marisa Pappas RN If he would like we can do a quick phone encounter and give him paxlovid. Please get an update on him Rogers Omer MD Pt calls to report that he tested positive for Covid today at home. Pt reports sx started on Sunday08/13/22. Pt reports PEACE, joint pain, chest heaviness. Pt reports he does have PO and level is 97%. Pt will continue to monitor PO and take otc medications for PEACE and joint pain. Mercedez Francisco LPN documented in this encounter [facility] 08-09-2022 Miscellaneous Notes Patient has been identified by name and date of : Yes Patient phones for refill(s): Requested Prescriptions Pending Prescriptions Disp Refills cholecalciferol, Vitamin D3, (VITAMIN D3) 1,250 mcg (50,000 unit) cap capsule 24 capsule 0 Sig: Take 1 capsule by mouth two times a week. (ONE CAPSULE) FOR VITAMIN D DEFICIENCY Date of last office visit in primary care: 05/11/2021 Last 2 Encounter Wt Readings: Date: Wt: 06/26/2022 126.6 kg (279 lb) 09/06/2021 125.2 kg (276 lb) Previous labs/tests for medication: Not applicable Please advise. Thank you. Xiomy Castelan LPN Patient has been identified by name and date of : Yes Last office visit in this department: Visit date not found RX INSTRUCTIONS: Patient aware RX will be sent to pharmacy. No need to notify patient. Patient phones requesting refills as follows: Patient scheduled ov for 08/14 Requested Prescriptions Pending Prescriptions Disp Refills cholecalciferol, Vitamin D3, (VITAMIN D3) 1,250 mcg (50,000 unit) cap capsule 24 capsule 0 Sig: Take 1 capsule by mouth two times a week. (ONE CAPSULE) FOR VITAMIN D DEFICIENCY Please review and advise. Yulissa Jung documented in this encounter [facility] 06-26-2022 History of Presen t illness Narrative 06/26/2022 Patient presents with: Rash: x 1 day all over, itching SUBJECTIVE: This is a 51 year old that is here today for Complaint(s) of pruritic rash x 1-2 days. Rash is located on face, arms, and legs. Patient reports his has the same rash. Similar to poison kushal/sumac. No pain associated. Denies feer/chills. States they were out cleaning the yard/brush prior to rash starting. PAST MEDICAL HISTORY Diagnosis Date Generalized anxiety disorder Anxiety, Generalized ALLERGIES Darvocet A500 [Propoxyphene N-Acetaminophen] MEDICATIONS Current Outpatient Medications Medication Sig clonazePAM (KLONOPIN) 1 mg tablet Take 1 tablet by mouth twice daily for 180 days. omeprazole (PRILOSEC) 20 mg capsule Take 1 capsule by mouth daily before breakfast. predniSONE (DELTASONE) 10 mg tablet Take 4 tabs daily for 3 days, then 2 tabs daily for 3 days, then 1 tab daily for 3 days with food. triamcinolone acetonide (KENALOG) 0.1 % cream Apply 1 application to affected area three times daily. Apply sparingly to area for rash/itching. Ascorbic Lxfx-Eeripdssi-Tgp (EMERGEN-C) 1,000 mg pwep Take by mouth. (Patient not taking: Reported on 06/26/2022) benzonatate (TESSALON PERLE) 100 mg capsule Take 1-2 capsules every 8 hours as needed. (Patient not taking: Reported on 06/26/2022) albuterol HFA (PROAIR HFA) 90 mcg/actuation inhaler Inhale 1-2 Puffs as instructed every 4 hours as needed. (Patient not taking: Reported on 06/26/2022) diclofenac (VOLTAREN ARTHRITIS PAIN) 1 % topical gel Apply 2 g to affected area four times daily. (Patient not taking: Reported on 09/06/2021 ) cholecalciferol, Vitamin D3, (VITAMIN D3) 1,250 mcg (50,000 unit) cap capsule Take 1 capsule by mouth two times a week. (ONE CAPSULE) FOR VITAMIN D DEFICIENCY (Patient not taking: Reported on 06/26/2022) No current facility-administered medications for this visit. SOCIAL HISTORY Social History Tobacco Use Smoking status: Former Types: Cigarettes Quit date: 09/22/2014 Years since quittin.7 Smokeless tobacco: Never Substance Use Topics Alcohol use: No Drug use: No REVIEW OF SYSTEMS See HPI OBJECTIVE: BP 124/80 Pulse 86 Temp 36.4 C (97.5 F) Resp 16 Wt 126.6 kg (279 lb) SpO2 98% BMI 45.03 kg/m APPEARANCE Well appearing, alert, in no acute distress, well-hydrated, well nourished. SKIN Skin:mildly erythematous papules with pruritic small vesicles located on face PIETRO, UE/LE PIETRO. ASSESSMENT/PLAN: 1. Allergic contact dermatitis, unspecified trigger - ICD9: 692.9, ICD10: L23.9 - Oral Steriod tx -Prednisone taper - Topical steriod tx with Rx for steriod cream/ointment- see orders - discussed skin care of rash - follow up if symptoms persist or worsen. - PREDNISONE 10 MG TABLET - TRIAMCINOLONE ACETONIDE 0.1 % TOPICAL CREAM The patient indicates understanding of these issues and agrees with the plan. Reviewed red flags and when to seek care sooner. Berta Shea PA-C documented in this encounter [facility] 03-09-2022 Miscellaneous Notes Please see pended medication. Pharmacy linked. Last ordered 08/22/2021. Lashay Kaplan Ma documented in this encounter [facility] 09-06-2021 History of Presen t illness Narrative Radiology Service Progress Note PATIENT NAME: Jatin Meza DATE OF SERVICE: September 06, 2021 TIME: 1:33 PM PATIENT IDENTITY VERIFICATION COMPLETED USING TWO (2) IDENTIFIERS: Name and Date of confirmed by patient verbally. FALL SCREENING: Has the patient had 2 falls in the last year or 1 fall with injury or currently using an Ambulatory Assistive Device (Walker, Cane, Wheelchair, Crutches, etc.)? No PATIENT GENDER DATA: Male PATIENT RELEVANT IMPLANT DATA REVIEWED: Not Applicable RADIOLOGY DEPARTMENT: General X-ray: Exam(s) Completed: Chest X-Ray PERIPHERAL IV DATA: Not applicable SIGNED BY: RT Greta(R) September 06, 2021 1:33 PM documented in this encounter [facility] 02-15-2021 Note HNO ID: [id number] Author: Cali Archibald Service: Radiology Author Type: Parole Hearing Officer Type: Progress Notes Filed: 02/15/2021 6:57 AM Note Text: RADIOLOGY SERVICE PROGRESS NOTE DATE OF SERVICE: February 15, 2021 TIME OF SERVICE: 7:00AM EVENT: EXAM/PROCEDURE NOT COMPLETED - Patient became claustrophobic, reaction was: Severe. ADDITIONAL EVENT DETAILS: patient will contact doctor and work something out SIGNATURE: Cali Archibald PATIENT NAME: Jatin Meza DATE: February 15, 2021 TIME: 6:56 AM PAGER/CONTACT #: [facility] 10-23-2014 History of Past i llness Narrative Problem Noted Date Resolved Date Joint pain 10/23/2014 02/16/2017 Last Assessment & Plan: Patient has joint pain, for the past few weeks, He has also gained 10 pounds, His ankles , hips and knees are painful. SOB (shortness of breath) 10/23/20142016 Last Assessment & Plan: Better after quitting smoking. Tobacco abuse disorder 10/23/2014 5 Last Assessment & Plan: He has quit smoking. Total body pain 03/31/2014 02/16/2017 Last Assessment & Plan: After stopping smoking his pain has gotten better all over. Back pain 03/16/2014 02/16/2017 Overview: Started a year ago, as a sore feeling like when you work out, he finds it difficult to stretch out. He cannot sleep well, finds it hard to work, almost miserable , like a severe ache and pain 8/10. Some places are more painful than the rest. The ankle, both shoulders and sometimes the neck. Last Assessment & Plan: Started a year ago, as a sore feeling like when you work out, progressively gotten worse, now he finds it difficult to stretch out. Joint stiffness for any hour in the morning, after that it gets a little better but affects him the whole day. He cannot sleep well, finds it hard to work, almost miserable , like a severe ache and pain 8/10. Some places are more painful than the rest. The ankle, both shoulders and sometimes the neck. He has be on icepacks at night and gets up an hour early just to lumber up. No fever or chills. He had seen another physician Dr. Lopez and was given steroids that got him better for a couple weeks and about the third week and it cames up again, he has gained 25 pounds with the steroids. He says his mother has some Kind of arthritis. She also has Lupus. Abdominal pain, right lower quadrant 09/18/2006 02/16/2017 documented as of this encounter (statuses as of 03/10/2022) [facility] History of Past illness Narrative* Problem Noted Date Resolved Date Joint pain 10/23/2014 02/16/2017 Last Assessment & Plan: Patient has joint pain, for the past few weeks, He has also gained 10 pounds, His ankles , hips and knees are painful. SOB (shortness of breath) 10/23/20142016 Last Assessment & Plan: Better after quitting smoking. Tobacco abuse disorder 10/23/2014 5 Last Assessment & Plan: He has quit smoking. Total body pain 03/31/2014 02/16/2017 Last Assessment & Plan: After stopping smoking his pain has gotten better all over. Back pain 03/16/2014 02/16/2017 Overview: Started a year ago, as a sore feeling like when you work out, he finds it difficult to stretch out. He cannot sleep well, finds it hard to work, almost miserable , like a severe ache and pain 8/10. Some places are more painful than the rest. The ankle, both shoulders and sometimes the neck. Last Assessment & Plan: Started a year ago, as a sore feeling like when you work out, progressively gotten worse, now he finds it difficult to stretch out. Joint stiffness for any hour in the morning, after that it gets a little better but affects him the whole day. He cannot sleep well, finds it hard to work, almost miserable , like a severe ache and pain 8/10. Some places are more painful than the rest. The ankle, both shoulders and sometimes the neck. He has be on icepacks at night and gets up an hour early just to lumber up. No fever or chills. He had seen another physician Dr. Lopez and was given steroids that got him better for a couple weeks and about the third week and it cames up again, he has gained 25 pounds with the steroids. He says his mother has some Kind of arthritis. She also has Lupus. Abdominal pain, right lower quadrant 09/18/2006 02/16/2017 documented as of this encounter (statuses as of 06/26/2022) [facility]02-[facility]-2015 History of Past illness Narrative* Problem Noted Date Resolved Date Joint pain 10/23/2014 02/16/2017 Last Assessment & Plan: Patient has joint pain, for the past few weeks, He has also gained 10 pounds, His ankles , hips and knees are painful. SOB (shortness of breath) 10/23/20142016 Last Assessment & Plan: Better after quitting smoking. Tobacco abuse disorder 10/23/2014 5 Last Assessment & Plan: He has quit smoking. Total body pain 03/31/2014 02/16/2017 Last Assessment & Plan: After stopping smoking his pain has gotten better all over. Back pain 03/16/2014 02/16/2017 Overview: Started a year ago, as a sore feeling like when you work out, he finds it difficult to stretch out. He cannot sleep well, finds it hard to work, almost miserable , like a severe ache and pain 8/10. Some places are more painful than the rest. The ankle, both shoulders and sometimes the neck. Last Assessment & Plan: Started a year ago, as a sore feeling like when you work out, progressively gotten worse, now he finds it difficult to stretch out. Joint stiffness for any hour in the morning, after that it gets a little better but affects him the whole day. He cannot sleep well, finds it hard to work, almost miserable , like a severe ache and pain 8/10. Some places are more painful than the rest. The ankle, both shoulders and sometimes the neck. He has be on icepacks at night and gets up an hour early just to lumber up. No fever or chills. He had seen another physician Dr. Lopez and was given steroids that got him better for a couple weeks and about the third week and it cames up again, he has gained 25 pounds with the steroids. He says his mother has some Kind of arthritis. She also has Lupus. Abdominal pain, right lower quadrant 09/18/2006 02/16/2017 documented as of this encounter (statuses as of 08/09/2022) [facility]02[facility]2015 History of Past illness Narrative* Problem Noted Date Resolved Date Joint pain 10/23/2014 02/16/2017 Last Assessment & Plan: Patient has joint pain, for the past few weeks, He has also gained 10 pounds, His ankles , hips and knees are painful. SOB (shortness of breath) 10/23/20142016 Last Assessment & Plan: Better after quitting smoking. Tobacco abuse disorder 10/23/2014 5 Last Assessment & Plan: He has quit smoking. Total body pain 03/31/2014 02/16/2017 Last Assessment & Plan: After stopping smoking his pain has gotten better all over. Back pain 03/16/2014 02/16/2017 Overview: Started a year ago, as a sore feeling like when you work out, he finds it difficult to stretch out. He cannot sleep well, finds it hard to work, almost miserable , like a severe ache and pain 8/10. Some places are more painful than the rest. The ankle, both shoulders and sometimes the neck. Last Assessment & Plan: Started a year ago, as a sore feeling like when you work out, progressively gotten worse, now he finds it difficult to stretch out. Joint stiffness for any hour in the morning, after that it gets a little better but affects him the whole day. He cannot sleep well, finds it hard to work, almost miserable , like a severe ache and pain 8/10. Some places are more painful than the rest. The ankle, both shoulders and sometimes the neck. He has be on icepacks at night and gets up an hour early just to lumber up. No fever or chills. He had seen another physician Dr. Lopez and was given steroids that got him better for a couple weeks and about the third week and it cames up again, he has gained 25 pounds with the steroids. He says his mother has some Kind of arthritis. She also has Lupus. Abdominal pain, right lower quadrant 09/18/2006 02/16/2017 documented as of this encounter (statuses as of 08/16/2022) [facility]2015 History of Past illness Narrative* Problem Noted Date Resolved Date Joint pain 10/23/2014 02/16/2017 Last Assessment & Plan: Patient has joint pain, for the past few weeks, He has also gained 10 pounds, His ankles , hips and knees are painful. SOB (shortness of breath) 10/23/20142016 Last Assessment & Plan: Better after quitting smoking. Tobacco abuse disorder 10/23/2014 5 Last Assessment & Plan: He has quit smoking. Total body pain 03/31/2014 02/16/2017 Last Assessment & Plan: After stopping smoking his pain has gotten better all over. Back pain 03/16/2014 02/16/2017 Overview: Started a year ago, as a sore feeling like when you work out, he finds it difficult to stretch out. He cannot sleep well, finds it hard to work, almost miserable , like a severe ache and pain 8/10. Some places are more painful than the rest. The ankle, both shoulders and sometimes the neck. Last Assessment & Plan: Started a year ago, as a sore feeling like when you work out, progressively gotten worse, now he finds it difficult to stretch out. Joint stiffness for any hour in the morning, after that it gets a little better but affects him the whole day. He cannot sleep well, finds it hard to work, almost miserable , like a severe ache and pain 8/10. Some places are more painful than the rest. The ankle, both shoulders and sometimes the neck. He has be on icepacks at night and gets up an hour early just to lumber up. No fever or chills. He had seen another physician Dr. Lopez and was given steroids that got him better for a couple weeks and about the third week and it cames up again, he has gained 25 pounds with the steroids. He says his mother has some Kind of arthritis. She also has Lupus. Abdominal pain, right lower quadrant 09/18/2006 02/16/2017 documented as of this encounter (statuses as of 08/17/2022) [facility]2015 History of Past illness Narrative* Problem Noted Date Resolved Date Joint pain 10/23/2014 02/16/2017 Last Assessment & Plan: Patient has joint pain, for the past few weeks, He has also gained 10 pounds, His ankles , hips and knees are painful. SOB (shortness of breath) 10/23/20142016 Last Assessment & Plan: Better after quitting smoking. Tobacco abuse disorder 10/23/2014 Last Assessment & Plan: He has quit smoking. Total body pain 03/31/2014 02/16/2017 Last Assessment & Plan: After stopping smoking his pain has gotten better all over. Back pain 03/16/2014 02/16/2017 Overview: Started a year ago, as a sore feeling like when you work out, he finds it difficult to stretch out. He cannot sleep well, finds it hard to work, almost miserable , like a severe ache and pain 8/10. Some places are more painful than the rest. The ankle, both shoulders and sometimes the neck. Last Assessment & Plan: Started a year ago, as a sore feeling like when you work out, progressively gotten worse, now he finds it difficult to stretch out. Joint stiffness for any hour in the morning, after that it gets a little better but affects him the whole day. He cannot sleep well, finds it hard to work, almost miserable , like a severe ache and pain 8/10. Some places are more painful than the rest. The ankle, both shoulders and sometimes the neck. He has be on icepacks at night and gets up an hour early just to lumber up. No fever or chills. He had seen another physician Dr. Lopez and was given steroids that got him better for a couple weeks and about the third week and it cames up again, he has gained 25 pounds with the steroids. He says his mother has some Kind of arthritis. She also has Lupus. Abdominal pain, right lower quadrant 09/18/2006 02/16/2017 documented as of this encounter (statuses as of 09/15/2022) [facility]2015 History of Past illness Narrative* Problem Noted Date Resolved Date Joint pain 10/23/2014 02/16/2017 Last Assessment & Plan: Patient has joint pain, for the past few weeks, He has also gained 10 pounds, His ankles , hips and knees are painful. SOB (shortness of breath) 10/23/20142016 Last Assessment & Plan: Better after quitting smoking. Tobacco abuse disorder 10/23/2014 5 Last Assessment & Plan: He has quit smoking. Total body pain 03/31/2014 02/16/2017 Last Assessment & Plan: After stopping smoking his pain has gotten better all over. Back pain 03/16/2014 02/16/2017 Overview: Started a year ago, as a sore feeling like when you work out, he finds it difficult to stretch out. He cannot sleep well, finds it hard to work, almost miserable , like a severe ache and pain 8/10. Some places are more painful than the rest. The ankle, both shoulders and sometimes the neck. Last Assessment & Plan: Started a year ago, as a sore feeling like when you work out, progressively gotten worse, now he finds it difficult to stretch out. Joint stiffness for any hour in the morning, after that it gets a little better but affects him the whole day. He cannot sleep well, finds it hard to work, almost miserable , like a severe ache and pain 8/10. Some places are more painful than the rest. The ankle, both shoulders and sometimes the neck. He has be on icepacks at night and gets up an hour early just to lumber up. No fever or chills. He had seen another physician Dr. Lopez and was given steroids that got him better for a couple weeks and about the third week and it cames up again, he has gained 25 pounds with the steroids. He says his mother has some Kind of arthritis. She also has Lupus. Abdominal pain, right lower quadrant 09/18/2006 02/16/2017 documented as of this encounter (statuses as of 09/29/2022) [facility] History of Past illness Narrative* Problem Noted Date Resolved Date Joint pain 10/23/2014 02/16/2017 Last Assessment & Plan: Patient has joint pain, for the past few weeks, He has also gained 10 pounds, His ankles , hips and knees are painful. SOB (shortness of breath) 10/23/20142016 Last Assessment & Plan: Better after quitting smoking. Tobacco abuse disorder 10/23/2014 5 Last Assessment & Plan: He has quit smoking. Total body pain 03/31/2014 02/16/2017 Last Assessment & Plan: After stopping smoking his pain has gotten better all over. Back pain 03/16/2014 02/16/2017 Overview: Started a year ago, as a sore feeling like when you work out, he finds it difficult to stretch out. He cannot sleep well, finds it hard to work, almost miserable , like a severe ache and pain 8/10. Some places are more painful than the rest. The ankle, both shoulders and sometimes the neck. Last Assessment & Plan: Started a year ago, as a sore feeling like when you work out, progressively gotten worse, now he finds it difficult to stretch out. Joint stiffness for any hour in the morning, after that it gets a little better but affects him the whole day. He cannot sleep well, finds it hard to work, almost miserable , like a severe ache and pain 8/10. Some places are more painful than the rest. The ankle, both shoulders and sometimes the neck. He has be on icepacks at night and gets up an hour early just to lumber up. No fever or chills. He had seen another physician Dr. Lopez and was given steroids that got him better for a couple weeks and about the third week and it cames up again, he has gained 25 pounds with the steroids. He says his mother has some Kind of arthritis. She also has Lupus. Abdominal pain, right lower quadrant 09/18/2006 02/16/2017 documented as of this encounter (statuses as of 10/17/2022) [facility] History of Past illness Narrative* Problem Noted Date Resolved Date Joint pain 10/23/2014 02/16/2017 Last Assessment & Plan: Patient has joint pain, for the past few weeks, He has also gained 10 pounds, His ankles , hips and knees are painful. SOB (shortness of breath) 10/23/20142016 Last Assessment & Plan: Better after quitting smoking. Tobacco abuse disorder 10/23/2014 5 Last Assessment & Plan: He has quit smoking. Total body pain 03/31/2014 02/16/2017 Last Assessment & Plan: After stopping smoking his pain has gotten better all over. Back pain 03/16/2014 02/16/2017 Overview: Started a year ago, as a sore feeling like when you work out, he finds it difficult to stretch out. He cannot sleep well, finds it hard to work, almost miserable , like a severe ache and pain 8/10. Some places are more painful than the rest. The ankle, both shoulders and sometimes the neck. Last Assessment & Plan: Started a year ago, as a sore feeling like when you work out, progressively gotten worse, now he finds it difficult to stretch out. Joint stiffness for any hour in the morning, after that it gets a little better but affects him the whole day. He cannot sleep well, finds it hard to work, almost miserable , like a severe ache and pain 8/10. Some places are more painful than the rest. The ankle, both shoulders and sometimes the neck. He has be on icepacks at night and gets up an hour early just to lumber up. No fever or chills. He had seen another physician Dr. Lopez and was given steroids that got him better for a couple weeks and about the third week and it cames up again, he has gained 25 pounds with the steroids. He says his mother has some Kind of arthritis. She also has Lupus. Abdominal pain, right lower quadrant 09/18/2006 02/16/2017 documented as of this encounter (statuses as of 01/06/2023) [facility]2015 History of Past illness Narrative* Problem Noted Date Resolved Date Joint pain 10/23/2014 02/16/2017 Last Assessment & Plan: Patient has joint pain, for the past few weeks, He has also gained 10 pounds, His ankles , hips and knees are painful. SOB (shortness of breath) 10/23/20142016 Last Assessment & Plan: Better after quitting smoking. Tobacco abuse disorder 10/23/2014 5 Last Assessment & Plan: He has quit smoking. Total body pain 03/31/2014 02/16/2017 Last Assessment & Plan: After stopping smoking his pain has gotten better all over. Back pain 03/16/2014 02/16/2017 Overview: Started a year ago, as a sore feeling like when you work out, he finds it difficult to stretch out. He cannot sleep well, finds it hard to work, almost miserable , like a severe ache and pain 8/10. Some places are more painful than the rest. The ankle, both shoulders and sometimes the neck. Last Assessment & Plan: Started a year ago, as a sore feeling like when you work out, progressively gotten worse, now he finds it difficult to stretch out. Joint stiffness for any hour in the morning, after that it gets a little better but affects him the whole day. He cannot sleep well, finds it hard to work, almost miserable , like a severe ache and pain 8/10. Some places are more painful than the rest. The ankle, both shoulders and sometimes the neck. He has be on icepacks at night and gets up an hour early just to lumber up. No fever or chills. He had seen another physician Dr. Lopez and was given steroids that got him better for a couple weeks and about the third week and it cames up again, he has gained 25 pounds with the steroids. He says his mother has some Kind of arthritis. She also has Lupus. Abdominal pain, right lower quadrant 09/18/2006 02/16/2017 documented as of this encounter (statuses as of 02/09/2023) [facility]2015 History of Past illness Narrative* Problem Noted Date Resolved Date Joint pain 10/23/2014 02/16/2017 Last Assessment & Plan: Patient has joint pain, for the past few weeks, He has also gained 10 pounds, His ankles , hips and knees are painful. SOB (shortness of breath) 10/23/20142016 Last Assessment & Plan: Better after quitting smoking. Tobacco abuse disorder 10/23/2014 5 Last Assessment & Plan: He has quit smoking. Total body pain 03/31/2014 02/16/2017 Last Assessment & Plan: After stopping smoking his pain has gotten better all over. Back pain 03/16/2014 02/16/2017 Overview: Started a year ago, as a sore feeling like when you work out, he finds it difficult to stretch out. He cannot sleep well, finds it hard to work, almost miserable , like a severe ache and pain 8/10. Some places are more painful than the rest. The ankle, both shoulders and sometimes the neck. Last Assessment & Plan: Started a year ago, as a sore feeling like when you work out, progressively gotten worse, now he finds it difficult to stretch out. Joint stiffness for any hour in the morning, after that it gets a little better but affects him the whole day. He cannot sleep well, finds it hard to work, almost miserable , like a severe ache and pain 8/10. Some places are more painful than the rest. The ankle, both shoulders and sometimes the neck. He has be on icepacks at night and gets up an hour early just to lumber up. No fever or chills. He had seen another physician Dr. Lopez and was given steroids that got him better for a couple weeks and about the third week and it cames up again, he has gained 25 pounds with the steroids. He says his mother has some Kind of arthritis. She also has Lupus. Abdominal pain, right lower quadrant 09/18/2006 02/16/2017 documented as of this encounter (statuses as of 02/20/2023) [facility]2015 History of Past illness Narrative* Problem Noted Date Resolved Date Joint pain 10/23/2014 02/16/2017 Last Assessment & Plan: Patient has joint pain, for the past few weeks, He has also gained 10 pounds, His ankles , hips and knees are painful. SOB (shortness of breath) 10/23/20142016 Last Assessment & Plan: Better after quitting smoking. Tobacco abuse disorder 10/23/2014 5 Last Assessment & Plan: He has quit smoking. Total body pain 03/31/2014 02/16/2017 Last Assessment & Plan: After stopping smoking his pain has gotten better all over. Back pain 03/16/2014 02/16/2017 Overview: Started a year ago, as a sore feeling like when you work out, he finds it difficult to stretch out. He cannot sleep well, finds it hard to work, almost miserable , like a severe ache and pain 8/10. Some places are more painful than the rest. The ankle, both shoulders and sometimes the neck. Last Assessment & Plan: Started a year ago, as a sore feeling like when you work out, progressively gotten worse, now he finds it difficult to stretch out. Joint stiffness for any hour in the morning, after that it gets a little better but affects him the whole day. He cannot sleep well, finds it hard to work, almost miserable , like a severe ache and pain 8/10. Some places are more painful than the rest. The ankle, both shoulders and sometimes the neck. He has be on icepacks at night and gets up an hour early just to lumber up. No fever or chills. He had seen another physician Dr. Lopez and was given steroids that got him better for a couple weeks and about the third week and it cames up again, he has gained 25 pounds with the steroids. He says his mother has some Kind of arthritis. She also has Lupus. Abdominal pain, right lower quadrant 09/18/2006 02/16/2017 documented as of this encounter (statuses as of 02/21/2023) [facility]2015 History of Past illness Narrative* Problem Noted Date Diagnosed Date Resolved Date Joint pain 10/23/2014 02/16/2017 Last Assessment & Plan: Patient has joint pain, for the past few weeks, He has also gained 10 pounds, His ankles , hips and knees are painful. SOB (shortness of breath) 10/23/2014 Last Assessment & Plan: Better after quitting smoking. Tobacco abuse disorder 10/23/201402/23 Last Assessment & Plan: He has quit smoking. Total body pain 03/31/2014 02/16/2017 Last Assessment & Plan: After stopping smoking his pain has gotten better all over. Back pain 03/16/2014 02/16/2017 Overview: Started a year ago, as a sore feeling like when you work out, he finds it difficult to stretch out. He cannot sleep well, finds it hard to work, almost miserable , like a severe ache and pain 8/10. Some places are more painful than the rest. The ankle, both shoulders and sometimes the neck. Last Assessment & Plan: Started a year ago, as a sore feeling like when you work out, progressively gotten worse, now he finds it difficult to stretch out. Joint stiffness for any hour in the morning, after that it gets a little better but affects him the whole day. He cannot sleep well, finds it hard to work, almost miserable , like a severe ache and pain 8/10. Some places are more painful than the rest. The ankle, both shoulders and sometimes the neck. He has be on icepacks at night and gets up an hour early just to lumber up. No fever or chills. He had seen another physician Dr. Lopez and was given steroids that got him better for a couple weeks and about the third week and it cames up again, he has gained 25 pounds with the steroids. He says his mother has some Kind of arthritis. She also has Lupus. Abdominal pain, right lower quadrant 09/18/2006 02/16/2017 documented as of this encounter (statuses as of 04/24/2023) [facility] History of Past illness Narrative* Problem Noted Date Diagnosed Date Resolved Date Joint pain 10/23/2014 02/16/2017 Last Assessment & Plan: Patient has joint pain, for the past few weeks, He has also gained 10 pounds, His ankles , hips and knees are painful. SOB (shortness of breath) 10/23/2014 Last Assessment & Plan: Better after quitting smoking. Tobacco abuse disorder 10/23/201402/23 Last Assessment & Plan: He has quit smoking. Total body pain 03/31/2014 02/16/2017 Last Assessment & Plan: After stopping smoking his pain has gotten better all over. Back pain 03/16/2014 02/16/2017 Overview: Started a year ago, as a sore feeling like when you work out, he finds it difficult to stretch out. He cannot sleep well, finds it hard to work, almost miserable , like a severe ache and pain 8/10. Some places are more painful than the rest. The ankle, both shoulders and sometimes the neck. Last Assessment & Plan: Started a year ago, as a sore feeling like when you work out, progressively gotten worse, now he finds it difficult to stretch out. Joint stiffness for any hour in the morning, after that it gets a little better but affects him the whole day. He cannot sleep well, finds it hard to work, almost miserable , like a severe ache and pain 8/10. Some places are more painful than the rest. The ankle, both shoulders and sometimes the neck. He has be on icepacks at night and gets up an hour early just to lumber up. No fever or chills. He had seen another physician Dr. Lopez and was given steroids that got him better for a couple weeks and about the third week and it cames up again, he has gained 25 pounds with the steroids. He says his mother has some Kind of arthritis. She also has Lupus. Abdominal pain, right lower quadrant 09/18/2006 02/16/2017 documented as of this encounter (statuses as of 07/08/2023) [facility] History of Past illness Narrative* Problem Noted Date Diagnosed Date Resolved Date Joint pain 10/23/2014 02/16/2017 Last Assessment & Plan: Patient has joint pain, for the past few weeks, He has also gained 10 pounds, His ankles , hips and knees are painful. SOB (shortness of breath) 10/23/2014 Last Assessment & Plan: Better after quitting smoking. Tobacco abuse disorder 10/23/201402/23 Last Assessment & Plan: He has quit smoking. Total body pain 03/31/2014 02/16/2017 Last Assessment & Plan: After stopping smoking his pain has gotten better all over. Back pain 03/16/2014 02/16/2017 Overview: Started a year ago, as a sore feeling like when you work out, he finds it difficult to stretch out. He cannot sleep well, finds it hard to work, almost miserable , like a severe ache and pain 8/10. Some places are more painful than the rest. The ankle, both shoulders and sometimes the neck. Last Assessment & Plan: Started a year ago, as a sore feeling like when you work out, progressively gotten worse, now he finds it difficult to stretch out. Joint stiffness for any hour in the morning, after that it gets a little better but affects him the whole day. He cannot sleep well, finds it hard to work, almost miserable , like a severe ache and pain 8/10. Some places are more painful than the rest. The ankle, both shoulders and sometimes the neck. He has be on icepacks at night and gets up an hour early just to lumber up. No fever or chills. He had seen another physician Dr. Lopez and was given steroids that got him better for a couple weeks and about the third week and it cames up again, he has gained 25 pounds with the steroids. He says his mother has some Kind of arthritis. She also has Lupus. Abdominal pain, right lower quadrant 09/18/2006 02/16/2017 documented as of this encounter (statuses as of 07/08/2023) [facility] History of Past illness Narrative* Problem Noted Date Diagnosed Date Resolved Date Joint pain 10/23/2014 02/16/2017 Last Assessment & Plan: Patient has joint pain, for the past few weeks, He has also gained 10 pounds, His ankles , hips and knees are painful. SOB (shortness of breath) 10/23/2014 Last Assessment & Plan: Better after quitting smoking. Tobacco abuse disorder 10/23/201402/23 Last Assessment & Plan: He has quit smoking. Total body pain 03/31/2014 02/16/2017 Last Assessment & Plan: After stopping smoking his pain has gotten better all over. Back pain 03/16/2014 02/16/2017 Overview: Started a year ago, as a sore feeling like when you work out, he finds it difficult to stretch out. He cannot sleep well, finds it hard to work, almost miserable , like a severe ache and pain 8/10. Some places are more painful than the rest. The ankle, both shoulders and sometimes the neck. Last Assessment & Plan: Started a year ago, as a sore feeling like when you work out, progressively gotten worse, now he finds it difficult to stretch out. Joint stiffness for any hour in the morning, after that it gets a little better but affects him the whole day. He cannot sleep well, finds it hard to work, almost miserable , like a severe ache and pain 8/10. Some places are more painful than the rest. The ankle, both shoulders and sometimes the neck. He has be on icepacks at night and gets up an hour early just to lumber up. No fever or chills. He had seen another physician Dr. Lopez and was given steroids that got him better for a couple weeks and about the third week and it cames up again, he has gained 25 pounds with the steroids. He says his mother has some Kind of arthritis. She also has Lupus. Abdominal pain, right lower quadrant 09/18/2006 02/16/2017 documented as of this encounter (statuses as of 10/09/2023) [facility] History of Past illness Narrative* Problem Noted Date Diagnosed Date Resolved Date Joint pain 10/23/2014 02/16/2017 Last Assessment & Plan: Patient has joint pain, for the past few weeks, He has also gained 10 pounds, His ankles , hips and knees are painful. SOB (shortness of breath) 10/23/2014 Last Assessment & Plan: Better after quitting smoking. Tobacco abuse disorder 10/23/201402/23 Last Assessment & Plan: He has quit smoking. Total body pain 03/31/2014 02/16/2017 Last Assessment & Plan: After stopping smoking his pain has gotten better all over. Back pain 03/16/2014 02/16/2017 Overview: Started a year ago, as a sore feeling like when you work out, he finds it difficult to stretch out. He cannot sleep well, finds it hard to work, almost miserable , like a severe ache and pain 8/10. Some places are more painful than the rest. The ankle, both shoulders and sometimes the neck. Last Assessment & Plan: Started a year ago, as a sore feeling like when you work out, progressively gotten worse, now he finds it difficult to stretch out. Joint stiffness for any hour in the morning, after that it gets a little better but affects him the whole day. He cannot sleep well, finds it hard to work, almost miserable , like a severe ache and pain 8/10. Some places are more painful than the rest. The ankle, both shoulders and sometimes the neck. He has be on icepacks at night and gets up an hour early just to lumber up. No fever or chills. He had seen another physician Dr. Lopez and was given steroids that got him better for a couple weeks and about the third week and it cames up again, he has gained 25 pounds with the steroids. He says his mother has some Kind of arthritis. She also has Lupus. Abdominal pain, right lower quadrant 09/18/2006 02/16/2017 documented as of this encounter (statuses as of 10/10/2023) [facility] History of Past illness Narrative* Problem Noted Date Diagnosed Date Resolved Date Joint pain 10/23/2014 02/16/2017 Last Assessment & Plan: Patient has joint pain, for the past few weeks, He has also gained 10 pounds, His ankles , hips and knees are painful. SOB (shortness of breath) 10/23/2014 Last Assessment & Plan: Better after quitting smoking. Tobacco abuse disorder 10/23/201402/23 Last Assessment & Plan: He has quit smoking. Total body pain 03/31/2014 02/16/2017 Last Assessment & Plan: After stopping smoking his pain has gotten better all over. Back pain 03/16/2014 02/16/2017 Overview: Started a year ago, as a sore feeling like when you work out, he finds it difficult to stretch out. He cannot sleep well, finds it hard to work, almost miserable , like a severe ache and pain 8/10. Some places are more painful than the rest. The ankle, both shoulders and sometimes the neck. Last Assessment & Plan: Started a year ago, as a sore feeling like when you work out, progressively gotten worse, now he finds it difficult to stretch out. Joint stiffness for any hour in the morning, after that it gets a little better but affects him the whole day. He cannot sleep well, finds it hard to work, almost miserable , like a severe ache and pain 8/10. Some places are more painful than the rest. The ankle, both shoulders and sometimes the neck. He has be on icepacks at night and gets up an hour early just to lumber up. No fever or chills. He had seen another physician Dr. Lopez and was given steroids that got him better for a couple weeks and about the third week and it cames up again, he has gained 25 pounds with the steroids. He says his mother has some Kind of arthritis. She also has Lupus. Abdominal pain, right lower quadrant 09/18/2006 02/16/2017 documented as of this encounter (statuses as of 11/02/2023) [facility] Tardive dyskinesia Subacute dyskinesia due to drugs Neck pain Cervicalgia documented [facility] this [facility] noteNo assessment information availableWA[facility] Work Phone: Evaluation note* Diagnosis Allergic contact dermatitis, unspecified trigger- Primary [facility] Diagnosis Vitamin D deficiency Unspecified vitamin D deficiency [facility]* Diagnosis COVID-19 virus infection- Primary [facility]* Diagnosis Tardive dyskinesia Subacute dyskinesia due to drugs Neck pain Cervicalgia [facility]* Diagnosis Tremor- Primary Abnormal involuntary movements Tics of organic origin Morbid obesity with BMI of 40.0-44.9, adult (HCC) Morbid obesity Encounter for screening for diabetes mellitus Screening for diabetes mellitus Lipid screening Screening for lipoid disorders [facility] Diagnosis Diarrhea, unspecified type- Primary [facility]* Diagnosis Lumbar sprain, initial encounter- Primary Bilateral low back pain with right-sided sciatica, unspecified chronicity documented [facility]* Diagnosis Foot drop, right- Primary Other acquired deformity of ankle and foot Numbness of right foot Lumbar radiculopathy Thoracic or lumbosacral neuritis or radiculitis, unspecified Insomnia, unspecified type Decreased sensation of leg Disturbance of skin sensation [facility]* Diagnosis Lumbosacral radiculopathy- Primary Thoracic or lumbosacral neuritis or radiculitis, unspecified Acute back pain with sciatica, right [facility]* Diagnosis Tardive dyskinesia Subacute dyskinesia due to drugs Neck pain Cervicalgia [facility]* Diagnosis Lumbosacral radiculopathy at S1 Thoracic or lumbosacral neuritis or radiculitis, unspecified [facility]* Diagnosis Swelling of limb [facility] Diagnosis Screening for colon cancer- Primary Special screening for malignant neoplasms, colon Rectal bleeding Hemorrhage of rectum and anus Diarrhea, unspecified type Family history of colon cancer Family history of malignant neoplasm of gastrointestinal tract [facility]* Diagnosis Tardive dyskinesia Subacute dyskinesia due to drugs Neck pain Cervicalgia [facility]* Diagnosis Obesity (BMI 30.0-34.9)- Primary Obesity, unspecified Morbid obesity with BMI of 40.0-44.9, adult (HCC) Morbid obesity Total body pain Generalized pain GERD (gastroesophageal reflux disease)- Primary Esophageal reflux Total body pain Generalized pain Morbid obesity with BMI of 40.0-44.9, adult ([facility]) Morbid obesity Morbid obesity with BMI of 40.0-44.9, adult ([facility])- Primary Morbid obesity Joint pain Pain in joint, site unspecified SOB (shortness of breath) Shortness of breath Vitamin D deficiency Unspecified vitamin D deficiency Tired Other malaise and fatigue GERD (gastroesophageal reflux disease) Esophageal reflux Tobacco abuse disorder Tobacco use disorder Morbid obesity with BMI of 40.0-44.9, adult ([facility])- Primary Morbid obesity Total body pain Generalized pain Tobacco abuse disorder Tobacco use disorder SOB (shortness of breath) Shortness of breath Morbid obesity with BMI of 40.0-44.9, adult ([facility])- Primary Morbid obesity ED (erectile dysfunction) Impotence of organic origin Testicular pain- Primary Unspecified disorder of male genital organs Morbid obesity with BMI of 40.0-44.9, adult ([facility]) Morbid obesity Testicular pain- Primary Unspecified disorder of male genital organs Morbid obesity with BMI of 40.0-44.9, adult ([facility]) Morbid obesity ED (erectile dysfunction) Impotence of organic origin Morbid obesity with BMI of 40.0-44.9, adult ([facility])- Primary Morbid obesity Vitamin D deficiency Unspecified vitamin D deficiency Erectile dysfunction, unspecified erectile dysfunction type Bilateral low back pain without sciatica Morbid obesity with BMI of 40.0-44.9, adult ([facility])- Primary Morbid obesity Cough documented in this encounter [facility] note* Diagnosis Obesity (BMI 30.0-34.9)- Primary Obesity, unspecified Morbid obesity with BMI of 40.0-44.9, adult ([facility]) Morbid obesity Total body pain Generalized pain GERD (gastroesophageal reflux disease)- Primary Esophageal reflux Total body pain Generalized pain Morbid obesity with BMI of 40.0-44.9, adult ([facility]) Morbid obesity Morbid obesity with BMI of 40.0-44.9, adult ([facility])- Primary Morbid obesity Joint pain Pain in joint, site unspecified SOB (shortness of breath) Shortness of breath Vitamin D deficiency Unspecified vitamin D deficiency Tired Other malaise and fatigue GERD (gastroesophageal reflux disease) Esophageal reflux Tobacco abuse disorder Tobacco use disorder Morbid obesity with BMI of 40.0-44.9, adult ([facility])- Primary Morbid obesity Total body pain Generalized pain Tobacco abuse disorder Tobacco use disorder SOB (shortness of breath) Shortness of breath Morbid obesity with BMI of 40.0-44.9, adult ([facility])- Primary Morbid obesity ED (erectile dysfunction) Impotence of organic origin Testicular pain- Primary Unspecified disorder of male genital organs Morbid obesity with BMI of 40.0-44.9, adult ([facility]) Morbid obesity Testicular pain- Primary Unspecified disorder of male genital organs Morbid obesity with BMI of 40.0-44.9, adult ([facility]) Morbid obesity ED (erectile dysfunction) Impotence of organic origin Morbid obesity with BMI of 40.0-44.9, adult ([facility])- Primary Morbid obesity Vitamin D deficiency Unspecified vitamin D deficiency Erectile dysfunction, unspecified erectile dysfunction type Bilateral low back pain without sciatica Morbid obesity with BMI of 40.0-44.9, adult ([facility])- Primary Morbid obesity Rectal bleeding- Primary Hemorrhage of rectum and anus Diarrhea, unspecified type Family history of colon cancer Family history of malignant neoplasm of gastrointestinal tract Screening for colon cancer- Primary Special screening for malignant neoplasms, colon Rectal bleeding Hemorrhage of rectum and anus Diarrhea, unspecified type Family history of colon cancer Family history of malignant neoplasm of gastrointestinal tract [facility] Diagnosis Obesity (BMI 30.0-34.9)- Primary Obesity, unspecified Morbid obesity with BMI of 40.0-44.9, adult ([facility]) Morbid obesity Total body pain Generalized pain GERD (gastroesophageal reflux disease)- Primary Esophageal reflux Total body pain Generalized pain Morbid obesity with BMI of 40.0-44.9, adult ([facility]) Morbid obesity Morbid obesity with BMI of 40.0-44.9, adult ([facility])- Primary Morbid obesity Joint pain Pain in joint, site unspecified SOB (shortness of breath) Shortness of breath Vitamin D deficiency Unspecified vitamin D deficiency Tired Other malaise and fatigue GERD (gastroesophageal reflux disease) Esophageal reflux Tobacco abuse disorder Tobacco use disorder Morbid obesity with BMI of 40.0-44.9, adult ([facility])- Primary Morbid obesity Total body pain Generalized pain Tobacco abuse disorder Tobacco use disorder SOB (shortness of breath) Shortness of breath Morbid obesity with BMI of 40.0-44.9, adult ([facility])- Primary Morbid obesity ED (erectile dysfunction) Impotence of organic origin Testicular pain- Primary Unspecified disorder of male genital organs Morbid obesity with BMI of 40.0-44.9, adult ([facility]) Morbid obesity Testicular pain- Primary Unspecified disorder of male genital organs Morbid obesity with BMI of 40.0-44.9, adult ([facility]) Morbid obesity ED (erectile dysfunction) Impotence of organic origin Morbid obesity with BMI of 40.0-44.9, adult ([facility])- Primary Morbid obesity Vitamin D deficiency Unspecified vitamin D deficiency Erectile dysfunction, unspecified erectile dysfunction type Bilateral low back pain without sciatica Morbid obesity with BMI of 40.0-44.9, adult ([facility])- Primary Morbid obesity Acute bronchitis, unspecified organism- Primary Acute bronchitis, unspecified organism documented in this encounter [facility] note* Diagnosis Obesity (BMI 30.0-34.9)- Primary Obesity, unspecified Morbid obesity with BMI of 40.0-44.9, adult ([facility]) Morbid obesity Total body pain Generalized pain GERD (gastroesophageal reflux disease)- Primary Esophageal reflux Total body pain Generalized pain Morbid obesity with BMI of 40.0-44.9, adult ([facility]) Morbid obesity Morbid obesity with BMI of 40.0-44.9, adult ([facility])- Primary Morbid obesity Joint pain Pain in joint, site unspecified SOB (shortness of breath) Shortness of breath Vitamin D deficiency Unspecified vitamin D deficiency Tired Other malaise and fatigue GERD (gastroesophageal reflux disease) Esophageal reflux Tobacco abuse disorder Tobacco use disorder Morbid obesity with BMI of 40.0-44.9, adult ([facility])- Primary Morbid obesity Total body pain Generalized pain Tobacco abuse disorder Tobacco use disorder SOB (shortness of breath) Shortness of breath Morbid obesity with BMI of 40.0-44.9, adult ([facility])- Primary Morbid obesity ED (erectile dysfunction) Impotence of organic origin Testicular pain- Primary Unspecified disorder of male genital organs Morbid obesity with BMI of 40.0-44.9, adult ([facility]) Morbid obesity Testicular pain- Primary Unspecified disorder of male genital organs Morbid obesity with BMI of 40.0-44.9, adult ([facility]) Morbid obesity ED (erectile dysfunction) Impotence of organic origin Morbid obesity with BMI of 40.0-44.9, adult ([facility])- Primary Morbid obesity Vitamin D deficiency Unspecified vitamin D deficiency Erectile dysfunction, unspecified erectile dysfunction type Bilateral low back pain without sciatica Morbid obesity with BMI of 40.0-44.9, adult ([facility])- Primary Morbid obesity Acute bronchitis, unspecified organism [facility] Diagnosis Obesity (BMI 30.0-34.9)- Primary Obesity, unspecified Morbid obesity with BMI of 40.0-44.9, adult ([facility]) Morbid obesity Total body pain Generalized pain GERD (gastroesophageal reflux disease)- Primary Esophageal reflux Total body pain Generalized pain Morbid obesity with BMI of 40.0-44.9, adult ([facility]) Morbid obesity Morbid obesity with BMI of 40.0-44.9, adult ([facility])- Primary Morbid obesity Joint pain Pain in joint, site unspecified SOB (shortness of breath) Shortness of breath Vitamin D deficiency Unspecified vitamin D deficiency Tired Other malaise and fatigue GERD (gastroesophageal reflux disease) Esophageal reflux Tobacco abuse disorder Tobacco use disorder Morbid obesity with BMI of 40.0-44.9, adult ([facility])- Primary Morbid obesity Total body pain Generalized pain Tobacco abuse disorder Tobacco use disorder SOB (shortness of breath) Shortness of breath Morbid obesity with BMI of 40.0-44.9, adult ([facility])- Primary Morbid obesity ED (erectile dysfunction) Impotence of organic origin Testicular pain- Primary Unspecified disorder of male genital organs Morbid obesity with BMI of 40.0-44.9, adult ([facility]) Morbid obesity Testicular pain- Primary Unspecified disorder of male genital organs Morbid obesity with BMI of 40.0-44.9, adult ([facility]) Morbid obesity ED (erectile dysfunction) Impotence of organic origin Morbid obesity with BMI of 40.0-44.9, adult ([facility])- Primary Morbid obesity Vitamin D deficiency Unspecified vitamin D deficiency Erectile dysfunction, unspecified erectile dysfunction type Bilateral low back pain without sciatica Morbid obesity with BMI of 40.0-44.9, adult ([facility])- Primary Morbid obesity Tardive dyskinesia Subacute dyskinesia due to drugs Neck pain Cervicalgia [facility]* Diagnosis Obesity (BMI 30.0-34.9)- Primary Obesity, unspecified Morbid obesity with BMI of 40.0-44.9, adult ([facility]) Morbid obesity Total body pain Generalized pain GERD (gastroesophageal reflux disease)- Primary Esophageal reflux Total body pain Generalized pain Morbid obesity with BMI of 40.0-44.9, adult ([facility]) Morbid obesity Morbid obesity with BMI of 40.0-44.9, adult ([facility])- Primary Morbid obesity Joint pain Pain in joint, site unspecified SOB (shortness of breath) Shortness of breath Vitamin D deficiency Unspecified vitamin D deficiency Tired Other malaise and fatigue GERD (gastroesophageal reflux disease) Esophageal reflux Tobacco abuse disorder Tobacco use disorder Morbid obesity with BMI of 40.0-44.9, adult ([facility])- Primary Morbid obesity Total body pain Generalized pain Tobacco abuse disorder Tobacco use disorder SOB (shortness of breath) Shortness of breath Morbid obesity with BMI of 40.0-44.9, adult ([facility])- Primary Morbid obesity ED (erectile dysfunction) Impotence of organic origin Testicular pain- Primary Unspecified disorder of male genital organs Morbid obesity with BMI of 40.0-44.9, adult ([facility]) Morbid obesity Testicular pain- Primary Unspecified disorder of male genital organs Morbid obesity with BMI of 40.0-44.9, adult ([facility]) Morbid obesity ED (erectile dysfunction) Impotence of organic origin Morbid obesity with BMI of 40.0-44.9, adult ([facility])- Primary Morbid obesity Vitamin D deficiency Unspecified vitamin D deficiency Erectile dysfunction, unspecified erectile dysfunction type Bilateral low back pain without sciatica Morbid obesity with BMI of 40.0-44.9, adult ([facility])- Primary Morbid obesity Acute otitis media, left- Primary Unspecified otitis media Acute non-recurrent sinusitis, unspecified location documented in this encounter [facility] note* Diagnosis Obesity (BMI 30.0-34.9)- Primary Obesity, unspecified Morbid obesity with BMI of 40.0-44.9, adult ([facility]) Morbid obesity Total body pain Generalized pain GERD (gastroesophageal reflux disease)- Primary Esophageal reflux Total body pain Generalized pain Morbid obesity with BMI of 40.0-44.9, adult ([facility]) Morbid obesity Morbid obesity with BMI of 40.0-44.9, adult ([facility])- Primary Morbid obesity Joint pain Pain in joint, site unspecified SOB (shortness of breath) Shortness of breath Vitamin D deficiency Unspecified vitamin D deficiency Tired Other malaise and fatigue GERD (gastroesophageal reflux disease) Esophageal reflux Tobacco abuse disorder Tobacco use disorder Morbid obesity with BMI of 40.0-44.9, adult ([facility])- Primary Morbid obesity Total body pain Generalized pain Tobacco abuse disorder Tobacco use disorder SOB (shortness of breath) Shortness of breath Morbid obesity with BMI of 40.0-44.9, adult (HCC)- Primary Morbid obesity ED (erectile dysfunction) Impotence of organic origin Testicular pain- Primary Unspecified disorder of male genital organs Morbid obesity with BMI of 40.0-44.9, adult (HCC) Morbid obesity Testicular pain- Primary Unspecified disorder of male genital organs Morbid obesity with BMI of 40.0-44.9, adult (HCC) Morbid obesity ED (erectile dysfunction) Impotence of organic origin Morbid obesity with BMI of 40.0-44.9, adult (HCC)- Primary Morbid obesity Vitamin D deficiency Unspecified vitamin D deficiency Erectile dysfunction, unspecified erectile dysfunction type Bilateral low back pain without sciatica Morbid obesity with BMI of 40.0-44.9, adult (HCC)- Primary Morbid obesity Annual physical exam- Primary Routine general medical examination at a health care facility Obstructive sleep apnea syndrome Obstructive sleep apnea (adult) (pediatric) Obesity, Class III, BMI 40-49.9 (morbid obesity) (HCC) Morbid obesity Screening for depression Encounter for screening examination for other mental health and behavioral disorders Restless legs syndrome Restless legs syndrome (RLS) Essential tremor Essential and other specified forms of tremor documented in this encounter [facility] for referral (narrative)* Diagnostic Procedure Only (Routine) - Closed Specialty Diagnoses / Procedures Referred By Chris mast Referred To Contact XR IMAGING Diagnoses Lumbosacral radiculopathy at S1 Procedures XR LUMBAR GENERAL 3V AP/LAT/L5-S1 RADEX SPINE LUMBOSACRAL 2/3 VIEWS Rogers Pisano MD [address] [place] [address] [facility] [place] [address] Referral ID Status Reason Start Date Expiration Date V isits Requested Visits Authorized [id number] Closed Auto-Generate d Referral 01/25/2023 02/24/2024 1 1 [facility] for referral (narrative)* Diagnostic Procedure Only (Urgent) - Closed Specialty Diagnoses / Procedures Referred By Chris mast Referred To Contact US IMAGING Diagnoses Swelling of limb Procedures US DVT LOWER RIGHT DUP-SCAN XTR VEINS UNILATERAL/LIMITED STUDY Rogers Pisano MD [address] [place] [address] [facility] [address] Referral ID Status Reason Start Date Expiration Date V isits Requested Visits Authorized [id number] Closed Auto-Generate d Referral 01/25/2023 02/24/2024 1 1 [facility] for referral (narrative)* Outpatient Procedure (Routine) - Closed Specialty Diagnoses / Procedures Referred By Contac t Referred To Contact [facility] Diagnoses Rectal bleeding Diarrhea, unspecified type Family history of colon cancer Procedures COLONOSCOPY DIAGNOSTIC COLONOSCOPY FLX DX W/COLLJ SPEC WHEN Marisa Rizvi PA-C [address] [place] [address] [place] [id number] [place] [id number] Referral ID Status Reason Start Date Expiration Date V isits Requested Visits Authorized [id number] Closed Auto-Generate d Referral 09/10/2023 09/10/2024 1 1 [facility] for referral (narrative)* Outpatient Procedure (Routine) - Closed Specialty Diagnoses / Procedures Referred By Contac t Referred To Contact [facility] Diagnoses Rectal bleeding Diarrhea, unspecified type Family history of colon cancer Procedures COLONOSCOPY DIAGNOSTIC COLONOSCOPY FLX DX W/COLLJ SPEC WHEN Marisa Rizvi PA-C [address] [place] [address] [facility] [address] [place], [place] [phone] Referral ID Status Reason Start Date Expiration Date V isits Requested Visits Authorized [id number] Closed Auto-Generate d Referral 09/10/2023 09/10/2024 1 1 [facility] for visit Narrative* Diagnostic Procedure Only (Routine) - Closed Specialty Diagnoses / Procedures Referred By Contac t Referred To Contact XR IMAGING Diagnoses Lumbosacral radiculopathy at S1 Procedures XR LUMBAR GENERAL 3V AP/LAT/L5-S1 RADEX SPINE LUMBOSACRAL 2/3 VIEWS Rogers Pisano MD [address] [place] [address] [place] [address] Referral ID Status Reason Start Date Expiration Date V isits Requested Visits Authorized [id number] Closed Auto-Generate d Referral 01/25/2023 02/24/2024 1 [facility] Procedure (Routine) - Closed Specialty Diagnoses / Procedures Referred By Chris mast Referred To Contact [facility] Diagnoses Rectal bleeding Diarrhea, unspecified type Family history of colon cancer Procedures COLONOSCOPY DIAGNOSTIC COLONOSCOPY FLX DX W/COLLJ SPEC WHEN [facility] Marisa Gates PA-C [address] [place] [address] [facility] [place] [address] [place] [address] Referral ID Status Reason Start Date Expiration Date V isits Requested Visits Authorized [id number] Closed Auto-Generate d Referral 09/10/2023 09/10/2024 1 1 [facility] Summary Purpose Family History No Family History Records Found Relationship Condition Age at Onset Recorded Date/T carmen Unknown Family History?Heart Disease Unknown July 06, 2016 3:01pm Family History?Heart Disease Unknown July 06, 2016 3:01pm Family History?Heart Disease, - Unknown July 06, 2016 3:01pm Advance Directives No Advanced Directives Records Found Advance Directive Response Recorded Date/ Time Advance Directives No July 06, 2016 4:03pm Living Will No April 04, 2022 12:04pm 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 No April 04 12:04pm Chief Complaint and Reason for Visit Chief Complaint EYE PROBLEM Reason for Referral Specialty Diagnoses / Procedures Referred By Chris mast Referred To Contact [facility] [place] Diagnoses Foot drop, right Numbness of right foot Lumbar radiculopathy Insomnia, unspecified type Decreased sensation of leg Procedures CONSULT TO PAIN MGT OFFICE/OUTPATIENT NEW HIGH MDM 60-74 MINUTES Rogers Pisano MD [address] [place] [address] Referral ID Status Reason Start Date Expiration Date Visits Requested Visits Authorized [id number] Authorized PCP Requested Referral 02/20/2023 05/21/2023 1 1 Specialty Diagnoses / Procedures Referred By Contac t Referred To Contact [facility] Diagnoses Lumbosacral radiculopathy Acute back pain with sciatica, right Procedures PT REHAB FOLLOW UP ORDER THERAPEUTIC EXERCISES RE, EA 15 MIN. Lowell Arora, [facility] [place] [address] [place] [address] Referral ID Status Reason Start Date Expiration Date Visits Requested Visits Authorized [id number] Pending Review PCP Requested Referral Auto-Generate d Referral 02/21/2023 05/22/2023 1 1 Additional Source Comments (unrecognized sect ion and content) No Status Records FoundNo Status Records FoundNo Status Records FoundNo Status Records Found INFORMATION SOURCE (unrecogn ized section and content) DATE CREATED AUTHOR 02/15/2021 [facility] DATE CREATED AUTHOR AUTHOR'S ORGANIZ ATION 04/11/2022 [facility] DATE CREATED AUTHOR AUTHOR'S ORGANIZ ATION 10/10/2023 [facility] DATE CREATED AUTHOR AUTHOR'S ORGANIZ ATION 03/28/2025 [facility] Source Comments (unrecognize d section and content) In the event this informatio n is protected by the Federal Confidentiality of Alcohol and Drug Abuse Patient Records regulations: The Federal rules restrict any use of the information to criminally investigate or prosecute any alcohol or drug abuse patient.[facility] event this information is protected by the Federal Confidentiality of Alcohol and Drug Abuse Patient Records regulations: The Federal rules restrict any use of the information to criminally investigate or prosecute any alcohol or drug abuse patient.[facility] the event this information is protected by the Federal Confidentiality of Alcohol and Drug Abuse Patient Records regulations: The Federal rules restrict any use of the information to criminally investigate or prosecute any alcohol or drug abuse patient.[facility] the event this information is protected by the Federal Confidentiality of Alcohol and Drug Abuse Patient Records regulations: The Federal rules restrict any use of the information to criminally investigate or prosecute any alcohol or drug abuse patient.[facility] the event this information is protected by the Federal Confidentiality of Alcohol and Drug Abuse Patient Records regulations: The Federal rules restrict any use of the information to criminally investigate or prosecute any alcohol or drug abuse patient.[facility] the event this information is protected by the Federal Confidentiality of Alcohol and Drug Abuse Patient Records regulations: The Federal rules restrict any use of the information to criminally investigate or prosecute any alcohol or drug abuse patient.[facility] the event this information is protected by the Federal Confidentiality of Alcohol and Drug Abuse Patient Records regulations: The Federal rules restrict any use of the information to criminally investigate or prosecute any alcohol or drug abuse patient.[facility] the event this information is protected by the Federal Confidentiality of Alcohol and Drug Abuse Patient Records regulations: The Federal rules restrict any use of the information to criminally investigate or prosecute any alcohol or drug abuse patient.[facility] the event this information is protected by the Federal Confidentiality of Alcohol and Drug Abuse Patient Records regulations: The Federal rules restrict any use of the information to criminally investigate or prosecute any alcohol or drug abuse patient.[facility] the event this information is protected by the Federal Confidentiality of Alcohol and Drug Abuse Patient Records regulations: The Federal rules restrict any use of the information to criminally investigate or prosecute any alcohol or drug abuse patient.[facility] the event this information is protected by the Federal Confidentiality of Alcohol and Drug Abuse Patient Records regulations: The Federal rules restrict any use of the information to criminally investigate or prosecute any alcohol or drug abuse patient.[facility] the event this information is protected by the Federal Confidentiality of Alcohol and Drug Abuse Patient Records regulations: The Federal rules restrict any use of the information to criminally investigate or prosecute any alcohol or drug abuse patient.[facility] the event this information is protected by the Federal Confidentiality of Alcohol and Drug Abuse Patient Records regulations: The Federal rules restrict any use of the information to criminally investigate or prosecute any alcohol or drug abuse patient.[facility] the event this information is protected by the Federal Confidentiality of Alcohol and Drug Abuse Patient Records regulations: The Federal rules restrict any use of the information to criminally investigate or prosecute any alcohol or drug abuse patient.[facility] the event this information is protected by the Federal Confidentiality of Alcohol and Drug Abuse Patient Records regulations: The Federal rules restrict any use of the information to criminally investigate or prosecute any alcohol or drug abuse patient.[facility] the event this information is protected by the Federal Confidentiality of Alcohol and Drug Abuse Patient Records regulations: The Federal rules restrict any use of the information to criminally investigate or prosecute any alcohol or drug abuse patient.[facility] the event this information is protected by the Federal Confidentiality of Alcohol and Drug Abuse Patient Records regulations: The Federal rules restrict any use of the information to criminally investigate or prosecute any alcohol or drug abuse patient.[facility] the event this information is protected by the Federal Confidentiality of Alcohol and Drug Abuse Patient Records regulations: The Federal rules restrict any use of the information to criminally investigate or prosecute any alcohol or drug abuse patient.[facility] the event this information is protected by the Federal Confidentiality of Alcohol and Drug Abuse Patient Records regulations: The Federal rules restrict any use of the information to criminally investigate or prosecute any alcohol or drug abuse patient.[facility] the event this information is protected by the Federal Confidentiality of Alcohol and Drug Abuse Patient Records regulations: The Federal rules restrict any use of the information to criminally investigate or prosecute any alcohol or drug abuse patient.[facility] the event this information is protected by the Federal Confidentiality of Alcohol and Drug Abuse Patient Records regulations: The Federal rules restrict any use of the information to criminally investigate or prosecute any alcohol or drug abuse patient.[facility] the event this information is protected by the Federal Confidentiality of Alcohol and Drug Abuse Patient Records regulations: The Federal rules restrict any use of the information to criminally investigate or prosecute any alcohol or drug abuse patient.[facility] the event this information is protected by the Federal Confidentiality of Alcohol and Drug Abuse Patient Records regulations: The Federal rules restrict any use of the information to criminally investigate or prosecute any alcohol or drug abuse patient.[facility] the event this information is protected by the Federal Confidentiality of Alcohol and Drug Abuse Patient Records regulations: The Federal rules restrict any use of the information to criminally investigate or prosecute any alcohol or drug abuse patient.[facility] the event this information is protected by the Federal Confidentiality of Alcohol and Drug Abuse Patient Records regulations: The Federal rules restrict any use of the information to criminally investigate or prosecute any alcohol or drug abuse patient.[facility] the event this information is protected by the Federal Confidentiality of Alcohol and Drug Abuse Patient Records regulations: The Federal rules restrict any use of the information to criminally investigate or prosecute any alcohol or drug abuse patient.[facility] Reason for Visit (unrecogniz ed section and content) Reason Onset Date Comments Refill Request 03/09/2022 Reason Comments Rash x 1 day all over, it anish Reason Onset Date Comments Refill Request 08/09/2022 Reason Comments Covid Positive Reason Comments Viral Syndrome Reason Onset Date Comments Refill Request 09/15/2022 Reason Comments Follow Up Reason Comments Diarrhea Reason Comments Same Day Appointment back pain x 2 weeks Reason Comments Patient Update Reason Comments F/U 6 months c/o lower back pain x 2 months 10/10 pain scale Reason Comments PT Eval Specialty Diagnoses / Procedures Referred By Contac t Referred To Contact Physical Therapy / PHYSICAL THERAPY Diagnoses Dx: Lumbosacral radiculopathy at S1 [M54.17] Procedures PHYSICAL THERAPY EVALUATION HIGH COMPLEX 45 MINS NEW RS PT ORTH MSK Rogers Pisano MD [address] [place] [address] Lowell Arora PT Referral ID Status Reason Start Date Expiration Date Visits Re quested Visits Authorized [id number] Closed 02/21/2023 05/22/2023 1 1 Reason Onset Date Comments Refill Request 04/23/2023 Reason Comments Radiology US Specialty Diagnoses / Procedures Referred By Contac t Referred To Contact US IMAGING Diagnoses Swelling of limb Procedures US DVT LOWER RIGHT DUP-SCAN XTR VEINS UNILATERAL/LIMITED STUDY Rogers Pisano MD [address] [place] [address] [place] [address] Referral ID Status Reason Start Date Expiration Date V isits Requested Visits Authorized [id number] Closed Auto-Generate d Referral 01/25/2023 02/24/2024 1 1 Reason Comments Results Reason Onset Date Comments Refill Request 11/01/2023 Reason Comments 10/08/2023 COLON DIAGNOSTIC LANZA Reason Comments Cough Cough and chest diane estion and PEACE x 4 days Reason Onset Date Comments Refill Request 08/20/2024 Reason Comments Ear Pain Left ear pain, head congestion, right eye pressure x 1 week Reason Comments Weight Problem And due for labs Reason Comments Insurance Authorization Care Teams (unrecognized sec tion and content) 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 Engineering Manager Relationship Specialty Start Date End Date Rogers Pisano MD [address] [place] [address] PCP - General Internal Medicine 05/20/14 Hardware Engineering Manager Relationship Specialty Start Date End Date Rogers Pisano MD [address] [place] [address] PCP - General Internal Medicine 05/20/14 Hardware Engineering Manager Relationship Specialty Start Date End Date Rogers Pisano MD [address] [place] [address] PCP - General Internal Medicine 05/20/14 Hardware Engineering Manager Relationship Specialty Start Date End Date Rogers Pisano MD [address] [place] [address] PCP - General Internal Medicine 05/20/14 Hardware Engineering Manager Relationship Specialty Start Date End Date Rogers Pisano MD [address] [place] [address] PCP - General Internal Medicine 05/20/14 Hardware Engineering Manager Relationship Specialty Start Date End Date Rogers Pisano MD [address] [place] [address] PCP - General Internal Medicine 05/20/14 Hardware Engineering Manager Relationship Specialty Start Date End Date Rogers Pisano MD [address] [place] [address] PCP - General Internal Medicine 05/20/14 Hardware Engineering Manager Relationship Specialty Start Date End Date Rogers Pisano MD [address] [place] [address] PCP - General Internal Medicine 05/20/14 Hardware Engineering Manager Relationship Specialty Start Date End Date Rogers Pisano MD [address] [place] [address] PCP - General Internal Medicine 05/20/14 Hardware Engineering Manager Relationship Specialty Start Date End Date Rogers Pisano MD [address] [place] [address] PCP - General Internal Medicine 05/20/14 Hardware Engineering Manager Relationship Specialty Start Date End Date Rogers Pisano MD [address] [place] [address] PCP - General Internal Medicine 05/20/14 Hardware Engineering Manager Relationship Specialty Start Date End Date Rogers Pisano MD [address] [place] [address] PCP - General Internal Medicine 05/20/14 Hardware Engineering Manager Relationship Specialty Start Date End Date Rogers Pisano MD [address] [place] [address] PCP - General Internal Medicine 05/20/14 Hardware Engineering Manager Relationship Specialty Start Date End Date Rogers Pisano MD [address] [place] [address] PCP - General Internal Medicine 05/20/14 Hardware Engineering Manager Relationship Specialty Start Date End Date Rogers Pisano MD [address] [place] [address] PCP - General Internal Medicine 05/20/14 Hardware Engineering Manager Relationship Specialty Start Date End Date Rogers Pisano MD [address] [place], [place] [address] PCP - General Internal Medicine 05/20/14 Hardware Engineering Manager Relationship Specialty Start Date End Date Rogers Pisano MD [address] [place], [place] [address] PCP - General Internal Medicine 05/20/14 Hardware Engineering Manager Relationship Specialty Start Date End Date Rogers Pisano MD [address] [place], [place] [address] PCP - General Internal Medicine 05/20/14 Aundrea Cheng PA-C [address] [place] [address] [facility] 08/10/24 Gabrielle Ken APRN.CNP [address] [place], [place] [phone] [facility] 08/10/24 Berta Shea PA-C [address] [place] [address] [facility] 08/10/24 Hardware Engineering Manager Relationship Specialty Start Date End Date Rogers Pisano MD [address] [place], [place] [address] PCP - General Internal Medicine 05/20/14 Aundrea Cheng PA-C [address] [place] [address] [facility] 08/10/24 Gabrielle Ken APRN.NUTRITION COUNSELOR [address] [place], [place] [phone] [facility] 08/10/24 Berta Shea PA-C [address] [place], [place] [address] Mother Tester Family [facility] 08/10/24 Hardware Engineering Manager Relationship Specialty Start Date End Date Rogers Pisano MD [address] [place], [place] [address] PCP - General Internal Medicine 05/20/14 Gabrielle Ken APRN.NUTRITION COUNSELOR [address] [place], [place] [address] [facility] Internal Medicine 08/10/24 Hardware Engineering Manager Relationship Specialty Start Date End Date Rogers Pisano MD [address] [place], [place] [address] PCP - General Internal Medicine 05/20/14 Gabrielle Ken APRN.NUTRITION COUNSELOR [address] [place], [place] [id number] [facility] Internal Medicine 08/10/24 Goals (unrecognized section and content) Goals may be documented in a n alternate section Inactive Administered Medications - up to 3 most recent administrations Administered Medications (un recognized section and content) Medication Order MAR Action Action Date Dose Rate Site lactated ringers iv infusion 30 mL/hr, INTRAVENOUS, CONTINUOUS, Starting on Sun10/08/23 at 0930, Until Sun10/08/23 at 1136, Preprocedure New Bag/Syringe/Bottle 10/08/2023 9:38 AM EST 30 mL/hr 30 mL/hr FOR RECORDS PERTAINING TO PATIENTS WHO ARE OR HAVE BEEN ENROLLED IN A CHEMICAL DEPENDENCY/SUBSTANCEABUSE PROGRAM, SOME INFORMATION MAY BE OMITTED. This clinical summary was aggregated from multiple sources. Caution should be exercised in using it in the provision of clinical care. This summary normalizes information from multiple sources, and as a consequence, information in this document may materially change the coding, format and clinical context of patient data. In addition, data may be omitted in some cases. CLINICAL DECISIONS SHOULD BE BASED ON THE PRIMARY CLINICAL RECORDS. [facility]. provides no warranty or guarantee of the accuracy or completeness of information in this document.
[2025-04-19 13:42] LABS: Anion Gap 12 (5-15); BUN 12 mg/dL (4-19); BUN/Creat Ratio 13.6 RATIO (10-20); Calcium,Total 9.6 mg/dL (7.6-11.0); Carbon Dioxide 25.8 mmol/L (21.0-32.0); Chloride 103 mmol/L (98-108); Estimated Creatinine Clearance 116.29 ml/min (50-250); Glucose 99 mg/dL (70-99); Potassium 4.0 mmol/L (3.3-5.1); Troponin T High Sensitivity 10 ng/L (<=22)
[2025-04-19 15:09] LABS: Troponin T High Sens 2 HR 9 ng/L (<=22)
== END 2025-04-19 15:49 | disposition home or self-care (01) ==
PROVIDERS: Emergency Provider Emergency Medicine; PCP Internal Medicine; Visit Provider Emergency Medicine
DX: R07.89 Other chest pain (principal); R03.0 Elevated blood-pressure reading, without diagnosis of hypertension; Z87.891 Personal history of nicotine dependence; Z90.49 Acquired absence of other specified parts of digestive tract
CPT/HCPCS: 71045; 80048; 84484; 85025; 93005; 99285; A4216